=== PATIENT | male | born 1945 | race Caucasian/White ===

== ENCOUNTER → 2018-12-04 | Outpatient (CLI) | payer MEDICARE ==
--- NOTE | 2018-12-04 12:32 | REP ---
PARTIAL LUMBAR SPINE, THREE VIEWS: HISTORY: Back pain. There is no acute fracture. The lumbar intervertebral discs are decreased in height. Vacuum phenomenon is present at the L4-5 level. These findings are consistent with disc degeneration. Osteophytes are present throughout the lumbar spine. There is sclerosis of the L4-5 and L5-S1 facets. There are 5 mm of grade 1 spondylolisthesis of L5 on S1. IMPRESSION: Degenerative change as described above. Electronically Signed by Mingo Monroe MD 12/04/2018 12:51 P
== END ==
LOC: M ADAMS 11:24
PROVIDERS: ATTEND Family Medicine
DX: M43.17 Spondylolisthesis, lumbosacral region (principal); M51.86 Other intervertebral disc disorders, lumbar region; M51.87 Other intervertebral disc disorders, lumbosacral region; M25.78 Osteophyte, vertebrae; M54.5 Low back pain; E03.0 Congenital hypothyroidism with diffuse goiter; E66.9 Obesity, unspecified; Z68.32 Body mass index [BMI] 32.0-32.9, adult

== ENCOUNTER → 2018-12-04 | Outpatient (REF) | payer MEDICARE ==
[2018-12-04 15:14] LABS: BASO # 0.1 10^3/uL (0.0-0.2); BASO % 0.8 % (0.0-1.0); EOS # 0.1 10^3/uL (0.0-0.50); EOS % 0.8 % (0.0-3.0); HEMATOCRIT 37.1 % (42.0-52.0); HEMOGLOBIN 12.3 g/dl (13.5-17.5); LYMPH # 1.5 10^3/uL (1.5-4.5); LYMPH % 23.5 % (24.0-44.0); MEAN CORPUSCULAR HEMOGLOBIN 31.6 pg (27.0-33.0); MEAN CORPUSCULAR HGB CONC 33.2 g/dl (32.0-36.5); MEAN CORPUSCULAR VOLUME 95.4 fl (80.0-96.0); MONO # 0.9 10^3/uL (0.0-0.8); MONO % 13.5 % (0.0-5.0); NEUTROPHILS # 3.9 10^3/uL (1.8-7.7); NEUTROPHILS % 60.8 % (36.0-66.0); PLATELET COUNT, AUTOMATED 279 10^3/uL (150-450); RED BLOOD COUNT 3.89 10^6/uL (4.30-6.10); WHITE BLOOD COUNT 6.4 10^3/uL (4.0-10.0)
[2018-12-04 15:28] LABS: ALBUMIN 3.9 GM/DL (3.2-5.2); BILIRUBIN,TOTAL 0.5 MG/DL (0.2-1.0); CALCIUM LEVEL 8.5 MG/DL (8.8-10.2); CHOLESTEROL RISK RATIO 5.717 (<5); CREATININE FOR GFR 1.28 MG/DL (0.70-1.30); FREE T4 1.39 NG/DL (0.76-1.46); GLOMERULAR FILTRATION RATE 58.5 (>42); POTASSIUM SERUM 4.8 MEQ/L (3.5-5.1); THYROID STIMULATING HORMONE 1.28 uIU/ML (0.358-3.740); TOTAL PROTEIN 7.8 GM/DL (6.4-8.2)
== END ==
LOC: M SFHCADAM 11:21
PROVIDERS: ATTEND Family Medicine
DX: R03.0 Elevated blood-pressure reading, without diagnosis of hypertension (principal); E66.9 Obesity, unspecified; Z68.32 Body mass index [BMI] 32.0-32.9, adult

== ENCOUNTER → 2018-12-18 | Outpatient (CLI) | payer MEDICARE ==
--- NOTE | 2018-12-18 15:46 | REP ---
RIGHT KNEE, FIVE VIEWS: Five views of the right knee are performed. There is no acute fracture or dislocation. There is moderate medial joint space narrowing and mild lateral joint space narrowing with mild subchondral sclerosis. Moderate vascular calcifications are seen posteriorly. There is probably a small joint effusion. IMPRESSION: Moderate medial arthritic changes. Electronically Signed by Vern Krueger MD 12/18/2018 05:09 P
[2018-12-18 19:58] LABS: CHOLESTEROL RISK RATIO 6.552 (<5)
== END ==
LOC: M ADAMS 13:48
PROVIDERS: ATTEND Family Medicine
DX: M17.11 Unilateral primary osteoarthritis, right knee (principal); E78.2 Mixed hyperlipidemia; M25.661 Stiffness of right knee, not elsewhere classified
CPT/HCPCS: 73564; 80061; G0463

== ENCOUNTER → 2019-01-21 | Outpatient (CLI) | payer MEDICARE ==
[~2019-01-21] MED LIST: ISOVUE-370 76% 100ML VIAL (Q9967) As Ordered ONE
--- NOTE | 2019-01-21 15:25 | REP ---
CT Head without and with contrast HISTORY: Altered sensation CONTRAST: Isovue 370 75 ml COMPARISON: None Areas of decreased attenuation are present in the periventricular and subcortical white matter. This represents small-vessel ischemic disease. There is no intraparenchymal hemorrhage, acute infarct, mass or midline shift. There is no abnormal enhancement. The ventricular system and cortical sulci are dilated consistent with minimal volume loss. There is no extra cerebral collection. The visualized sinuses are clear. Impression: 1. Small vessel ischemic disease 2. Minimal volume loss. Electronically Signed by Mingo Monroe MD 01/21/2019 03:16 P
--- NOTE | 2019-01-21 15:57 | REP ---
Duplex extremity venous ultrasound: Right lower extremity. History: Edema of the right leg. Findings: The deep veins are anechoic and fully compressible from the groin to the popliteal fossa in the right lower extremity. Color flow imaging is homogeneous. Spectral Doppler interrogation demonstrates intact respiratory variation in flow and normal manual augmentation of flow. There is no evidence of deep vein thrombosis. There is a 5.1 x 2.8 x 3.3 cm right Mariscal's cyst. Impression: Negative right lower extremity duplex venous ultrasound. No evidence of deep vein thrombosis. 5.1 cm Mariscal's cyst right popliteal fossa. Electronically Signed by Fernie Alanis MD 01/21/2019 03:49 P
[2019-01-21 17:05] LABS: BLOOD UREA NITROGEN 20 MG/DL (7-18); CARBON DIOXIDE LEVEL 29 MEQ/L (21-32); CHLORIDE LEVEL 103 MEQ/L (98-107); CREATININE FOR GFR 1.19 MG/DL (0.70-1.30); GLOMERULAR FILTRATION RATE > 60.0 (>42); GLUCOSE, FASTING 93 MG/DL (70-100); POTASSIUM SERUM 4.5 MEQ/L (3.5-5.1); SODIUM LEVEL 137 MEQ/L (136-145)
== END ==
LOC: M RAD 14:34
PROVIDERS: ATTEND Family Medicine
DX: I67.9 Cerebrovascular disease, unspecified (principal); M71.21 Synovial cyst of popliteal space [Baker], right knee; R20.9 Unspecified disturbances of skin sensation; R60.0 Localized edema
CPT/HCPCS: 36415; 70470; 80048; 93005; 93971; G0463; Q9967

== ENCOUNTER → 2019-01-28 | Outpatient (CLI) | payer MEDICARE ==
--- NOTE | 2019-01-28 14:15 | REP ---
CAROTID ULTRASOUND: Real-time ultrasound evaluation and duplex Doppler interrogation of the extracranial carotid vasculature is performed. There is mild to moderate plaquing and narrowing in both carotid bulbs extending into the internal and external carotid arteries. Luminal narrowing is less than 50%. There is no evidence of hemodynamically significant stenosis of either internal carotid artery. Normal flow velocities are seen. The vertebral arteries demonstrate normal direction of flow. RIGHT LEFT Peak systolic velocity ICA 63.6 cm/s 95.1 cm/s End diastolic velocity ICA 17.4 cm/s 28.6 cm/s Peak systolic velocity CCA 103.30 cm/s 147.2 cm/s Peak systolic velocity ECA 182.6 cm/s 165.4 cm/s ICA/CCA ratio 0.62 0.65 IMPRESSION: Bilateral luminal narrowing of the internal carotid arteries less than 50%. No evidence of hemodynamically significant stenosis. Electronically Signed by Vern Krueger MD 01/28/2019 02:05 P
== END ==
LOC: M RAD 12:28
PROVIDERS: ATTEND Family Medicine
DX: R20.9 Unspecified disturbances of skin sensation (principal); I65.23 Occlusion and stenosis of bilateral carotid arteries

== ENCOUNTER → 2019-03-20 | Outpatient (CLI) | payer MEDICARE ==
[~2019-03-20] MED LIST changes: +AMLO5TAB6 PO; +BACL10TA2 PO; -ISOVUE-370 76% 100ML VIAL (Q9967) As Ordered ONE; +NAPR-837 PO; +PEG1POW PO
--- NOTE | 2019-03-22 10:06 | REP ---
MRI lumbar spine without contrast: History: Gait abnormality. No comparison lumbar spine MRI study. Comparison lumbar spine radiographs are from December 04, 2018. Technique: Sagittal and axial T1 and T2-weighted scans are acquired in the usual fashion with and without fat saturation. Sequences include spin echo, turbo spin-echo, and STIR imaging sequences. MRI findings: Lumbar vertebral body heights are preserved. A stable 5 mm L5-S1 spondylolisthesis is seen. No definite spondylolysis is seen. At L5-S1, axial and sagittal images demonstrate diffuse posterior disc bulging. There is moderate osteoarthritic facet hypertrophy bilaterally left more so than right. There is mild left-sided neural foraminal narrowing due to facet hypertrophy and the spondylolisthesis. At L4-5, there is moderate central canal stenosis due to ligamentum flavum and facet hypertrophy and developmentally short pedicles. There is a small central focal disc protrusion. There is bilateral neural foraminal narrowing left more advanced than right due to facet hypertrophy and disc bulging and spur formation. At L3-4, there is moderate diffuse disc bulging. Moderate central canal stenosis is noted at this level as well due to ligamentum flavum and facet hypertrophy in addition to the disc bulging. The thecal sac has a 9 mm midline AP dimension at the 3-4 level. There is bilateral neural foraminal encroachment from facet hypertrophy and discogenic spurring. At L2-3, there is mild central canal stenosis. Diffuse disc bulging is present. There is ligamentum flavum hypertrophy on the right and to a lesser extent on the left. There is right-sided mild foraminal narrowing at L2-3. At L1-2 there is degenerative disc narrowing as well with minimal diffuse disc bulging. No central canal stenosis is seen. There is mild narrowing of the right neural foramen due to foraminal disc bulging. At T12-L1, there is central disc bulging. No other finding. No extra spinal abnormality is appreciated. Normal caliber aorta. Impression: Advanced degenerative spondylosis change. Multiple levels of neural foraminal encroachment. There is moderate central canal stenosis at the L4-5 and L3-4. There is a degenerative grade 1 5 mm L5-S1 spondylolisthesis. Electronically Signed by Fernie Alanis MD 03/22/2019 11:10 A
== END ==
LOC: M RAD 13:26
PROVIDERS: ATTEND Family Medicine
DX: M48.061 Spinal stenosis, lumbar region without neurogenic claudication (principal); M43.17 Spondylolisthesis, lumbosacral region

== ENCOUNTER 2019-04-12 14:14 | Emergency (ER) | payer MEDICARE ==
[~2019-04-12] VITALS: Ht 175.3 cm; Wt 109.5 kg
[2019-04-12] MEDS ORDERED: PEG1POW PO (16:48)
[2019-04-12] MEDS ORDERED: AMLO5TAB6 PO (16:48)
[2019-04-12] MEDS ORDERED: PERCOCET 5MG/325MG TAB PO ONE (17:30)
[2019-04-12] MEDS ORDERED: BACLOFEN 10 MG TAB PO ONE (17:30)
--- NOTE | 2019-04-12 18:39 | REPVR ---
EXAM: CT Lumbar Spine Without Contrast EXAM DATE/TIME: 04/12/2019 5:20 PM CLINICAL HISTORY: 74 years old, male; Injury or trauma; Fall; Initial encounter; Blunt trauma (contusions or hematomas); Additional info: Fell TECHNIQUE: Imaging protocol: Computed tomography images of the lumbar spine without contrast. Coronal and sagittal reformatted images were created and reviewed. Radiation optimization: All CT scans at this facility use at least one of these dose optimization techniques: automated exposure control; mA and/or kV adjustment per patient size (includes targeted exams where dose is matched to clinical indication); or iterative reconstruction. COMPARISON: MRI-Spine, L.S. without con 03/20/2019 2:51 PM FINDINGS: Vertebrae: Ambiguous lumbosacral anatomy is present with 6 non rib-bearing lumbar type vertebral bodies. For the purposes of this examination, S1 is considered to be lumbar-like. Degenerative disc disease and facet arthrosis is present throughout the lumbar spine and lumbosacral junction. No acute fracture is identified. L1-L2: No disc herniation. No spinal stenosis. No neural foraminal narrowing. L2-L3: Mild spinal stenosis. L3-L4: Moderate spinal stenosis. L4-L5: Severe spinal stenosis. L5-S1: There is minimal retrolisthesis of L5. S1-S2: There is a chronic pars defect on the right at S1. There is mild anterolisthesis of S1. Kidneys and ureters: Absent left kidney. Multiple fluid density lesions within the right kidney. These are incompletely visualized, but likely represents cysts. Consider followup evaluation with renal ultrasound or contrast-enhanced CT scan as clinically indicated. Vasculature: Moderate severe atherosclerosis of the abdominal aorta and branch vessels. Soft tissues: Unremarkable. IMPRESSION: 1. No acute fracture. 2. Degenerative spondylosis of the lumbar spine and lumbosacral junction. 3. Severe spinal stenosis at L4-L5. 4. Fluid density lesions within the right kidney, incompletely visualized. Although these lesions are therefore indeterminate, they likely represent cysts and could be further characterized with renal ultrasound or contrast-enhanced CT. Electronically signed by: Enrike Nixon On 04/12/2019 18:39:29 PM
[2019-04-12] MEDS ORDERED: NAPR-837 PO (19:19)
[2019-04-12] MEDS ORDERED: BACL10TA2 PO (19:19)
[2019-04-12 19:29] VITALS: BP 145/65
--- NOTE | 2019-04-12 21:45 | ED PDOC ---
Post-Departure Follow-Up dr jimenez faxed formal report of ct ls spine for fu Ezequiel De Santiago MD Apr 12, 2019 21:45
== END 2019-04-12 19:32 | disposition home or self-care (01) ==
LOC: M ED 14:14
DX: M48.061 Spinal stenosis, lumbar region without neurogenic claudication (principal); M47.816 Spondylosis without myelopathy or radiculopathy, lumbar region; M47.817 Spondylosis without myelopathy or radiculopathy, lumbosacral region; M54.31 Sciatica, right side; I10 Essential (primary) hypertension; E66.9 Obesity, unspecified; G89.29 Other chronic pain; M54.9 Dorsalgia, unspecified; Z72.0 Tobacco use; Z79.899 Other long term (current) drug therapy

== ENCOUNTER → 2019-04-27 | Outpatient (REF) | payer MEDICARE ==
[2019-04-27 14:08] LABS: BASO % 0.7 % (0.0-1.0); DRVV SCREEN 36.2 SEC; EOS % 0.7 % (0.0-3.0); HEMOGLOBIN 12.3 g/dl (13.5-17.5); LYMPH # 0.9 10^3/uL (1.5-4.5); LYMPH % 17.1 % (24.0-44.0); MEAN CORPUSCULAR HEMOGLOBIN 32.5 pg (27.0-33.0); MEAN CORPUSCULAR HGB CONC 33.2 g/dl (32.0-36.5); MEAN CORPUSCULAR VOLUME 97.6 fl (80.0-96.0); MONO # 0.5 10^3/uL (0.0-0.8); NEUTROPHILS # 3.9 10^3/uL (1.8-7.7); NEUTROPHILS % 71.9 % (36.0-66.0); PLATELET COUNT, AUTOMATED 224 10^3/uL (150-450); PTT LUPUS TYPE ANTICOAG SCREEN 0.9 (0-1.2); RED BLOOD COUNT 3.79 10^6/uL (4.30-6.10); WHITE BLOOD COUNT 5.5 10^3/uL (4.0-10.0)
[2019-04-27 14:22] LABS: ALBUMIN 3.7 GM/DL (3.2-5.2); ALT/SGPT 28 U/L (12-78); BILIRUBIN,TOTAL 0.5 MG/DL (0.2-1.0); BLOOD UREA NITROGEN 20 MG/DL (7-18); CALCIUM LEVEL 8.7 MG/DL (8.8-10.2); CARBON DIOXIDE LEVEL 24 MEQ/L (21-32); CHLORIDE LEVEL 106 MEQ/L (98-107); CREATININE FOR GFR 1.02 MG/DL (0.70-1.30); GLOMERULAR FILTRATION RATE > 60.0 (>42); GLUCOSE, FASTING 84 MG/DL (70-100); POTASSIUM SERUM 4.3 MEQ/L (3.5-5.1); RHEUMATOID FACTOR QUANT 53.2 IU/ML (<15.0); SODIUM LEVEL 138 MEQ/L (136-145); TOTAL PROTEIN 7.3 GM/DL (6.4-8.2)
[2019-04-27 14:24] LABS: HEMOGLOBIN A1c 5.8 %
[2019-04-27 14:37] LABS: ERYTHROCYTE SEDIMENTATION RATE 63 mm/hr (0-20)
[2019-04-27 14:52] LABS: FOLATE 17.2 NG/ML; TOTAL 25(OH) VITAMIN D 31.6 NG/ML (30.0-100.0); VITAMIN B12 LEVEL 217 PG/ML
[2019-04-29 11:27] LABS: ALBUMIN 3.96 GM/DL (3.29-5.55); ALBUMIN % 54.3 % (55.8-66.1); ALPHA-1-GLOBULIN % 5.3 % (2.9-4.9); ALPHA-1-GLOBULINS 0.39 GM/DL (0.17-0.41); ALPHA-2-GLOBULINS 0.86 GM/DL (0.42-0.99); ALPHA-2-GLOBULINS % 11.8 % (7.1-11.8); BETA-1-GLOBULINS 0.41 GM/DL (0.28-0.60); BETA-1-GLOBULINS % 5.6 % (4.7-7.2); BETA-2-GLOBULINS 0.43 GM/DL (0.19-0.55); BETA-2-GLOBULINS % 5.9 % (3.2-6.5); GAMMA GLOBULIN % 17.1 % (11.1-18.8); GAMMA GLOBULINS 1.25 GM/DL (0.65-1.58)
[2019-05-02 08:27] LABS: ANCA-ATYPICAL <1:20 titer (Neg:<1:20); ANTI DS-DNA AB <1:10 titer (.); ANTINUCLEAR ANTIBODIES DIRECT Negative (Negative); CERULOPLASMIN 31.8 mg/dL (16.0-31.0); COPPER PLASMA 133 ug/dL (72-166); CYTOPLASMIC NEUTROP AB ANCA-C <1:20 titer (Neg:<1:20); LEAD BLOOD ADULT 2 ug/dL (0-4); Lyme Disease IgG Ab 18 kDa Ban Present (.); Lyme Disease IgG Ab 23 kDa Ban Present (.); Lyme Disease IgG Ab 28 kDa Ban Absent (.); Lyme Disease IgG Ab 30 kDa Ban Absent (.); Lyme Disease IgG Ab 39 kDa Ban Absent (.); Lyme Disease IgG Ab 41 kDa Ban Absent (.); Lyme Disease IgG Ab 45 kDa Ban Absent (.); Lyme Disease IgG Ab 58 kDa Ban Absent (.); Lyme Disease IgG Ab 66 kDa Ban Absent (.); Lyme Disease IgG Ab 93 kDa Ban Absent (.); Lyme Disease IgG West Blot Int Negative (.); Lyme Disease IgG/IgM Antibodie 0.93 ISR (0.00-0.90); Lyme Disease IgM Ab 23 kDa Ban Absent (.); Lyme Disease IgM Ab 39 kDa Ban Absent (.); Lyme Disease IgM Ab 41 kDa Ban Absent (.); Lyme Disease IgM Ab Quantitati 0.91 index (0.00-0.79); Lyme Disease IgM West Blot Int Negative (.); MERCURY LEVEL None Detected ug/L (0.0-14.9); PERINUCLEAR AB ANCA-P <1:20 titer (Neg:<1:20); SJOGREN'S ANTI SS-A <0.2 AI (0.0-0.9); SJOGREN'S ANTI SS-B <0.2 AI (0.0-0.9); VITAMIN B1 LEVEL WHOLE BLOOD 91.8 nmol/L (66.5-200.0); VITAMIN B6,PYRIDOXAL PHOSPHATE 5.3 ug/L (5.3-46.7); VITAMIN E(ALPHA TOCOPHEROL) 14.1 mg/L (9.0-29.0); VITAMIN E(GAMMA TOCOPHEROL) 1.7 mg/L (0.5-4.9)
== END ==
LOC: M LABNEURO 10:32
PROVIDERS: ATTEND Psychiatry & Neurology Neurology
DX: G62.9 Polyneuropathy, unspecified (principal); Z79.899 Other long term (current) drug therapy

== ENCOUNTER → 2019-11-08 | Outpatient (REF) | payer MEDICARE ==
[2019-11-08 14:06] LABS: BASO # 0.1 10^3/uL (0.0-0.2); EOS # 0.1 10^3/uL (0.0-0.5); HEMATOCRIT 38.4 % (42.0-52.0); HEMOGLOBIN 12.6 g/dl (13.5-17.5); LYMPH # 1.6 10^3/uL (1.5-5.0); MEAN CORPUSCULAR HEMOGLOBIN 31.8 pg (27.0-33.0); MEAN CORPUSCULAR HGB CONC 32.8 g/dl (32.0-36.5); MONO # 0.6 10^3/uL (0.0-0.8); MONO % 12.1 % (0.0-5.0); NEUTROPHILS # 2.7 10^3/uL (1.5-8.5); NEUTROPHILS % 54.3 % (36.0-66.0); PLATELET COUNT, AUTOMATED 217 10^3/uL (150-450); RED BLOOD COUNT 3.96 10^6/uL (4.30-6.10)
[2019-11-08 14:16] LABS: BILIRUBIN,TOTAL 0.6 MG/DL (0.2-1.0); CALCIUM LEVEL 9.2 MG/DL (8.8-10.2); CHOLESTEROL RISK RATIO 6.1 (<5); CREATININE FOR GFR 1.3 MG/DL (0.70-1.30); GLOMERULAR FILTRATION RATE 57.3 (>42); POTASSIUM SERUM 4.7 MEQ/L (3.5-5.1); TOTAL PROTEIN 7.7 GM/DL (6.4-8.2)
== END ==
LOC: M SFHCADAM 09:40
PROVIDERS: ATTEND Family Medicine
DX: I63.9 Cerebral infarction, unspecified (principal); I10 Essential (primary) hypertension

== ENCOUNTER → 2019-11-18 | Outpatient (CLI) | payer MEDICARE ==
--- NOTE | 2019-11-18 13:01 | REP ---
PA and lateral chest: Comparison is 08/18/2006. There are multiple old left rib fractures, unchanged. There is chronic effacement of the left costophrenic angle, likely pleural adhesion. Lung guzman are otherwise clear. The cardiac size is normal. The lydia, mediastinum, and skeletal structures are otherwise unremarkable and unchanged. Impression: There are old post-traumatic changes in the left hemithorax. Otherwise, negative PA and lateral chest. Electronically Signed by Vern Joseph MD 11/18/2019 12:52 P
== END ==
LOC: M ADAMS 11:47
PROVIDERS: ATTEND Family Medicine
DX: R05 Cough (principal)
CPT/HCPCS: 71046; G0463

== ENCOUNTER → 2020-01-13 | Outpatient (REF) | payer MEDICARE ==
[2020-01-13 18:00] LABS: ALBUMIN 3.9 GM/DL (3.2-5.2); BILIRUBIN,TOTAL 0.6 MG/DL (0.2-1.0); CALCIUM LEVEL 9.4 MG/DL (8.8-10.2); CHOLESTEROL RISK RATIO 3.69 (<5); CREATININE FOR GFR 1.26 MG/DL (0.70-1.30); GLOMERULAR FILTRATION RATE 59.4 (>42); POTASSIUM SERUM 4.3 MEQ/L (3.5-5.1); TOTAL PROTEIN 7.8 GM/DL (6.4-8.2)
== END ==
LOC: M SFHCADAM 11:50
PROVIDERS: ATTEND Family Medicine
DX: R60.9 Edema, unspecified (principal); E78.00 Pure hypercholesterolemia, unspecified
CPT/HCPCS: 80053; 80061; G0463

== ENCOUNTER → 2020-01-28 | Outpatient (CLI) | payer MEDICARE | LOC: M SLEEP HO 12:29 | PROVIDERS: ATTEND Internal Medicine Cardiovascular Disease | DX: R06.83 Snoring (principal) ==

== ENCOUNTER → 2020-05-10 | Outpatient (CLI) | payer MEDICARE ==
[~2020-05-10] MED LIST changes: +AMLO1TAB24 PO; -AMLO5TAB6 PO; +ASPI81TA26 PO; +ATOR1TAB21 PO; +CARV6.25 PO; +FURO20TA2 PO; +SPIR-10 PO; +VENTAER INH
--- NOTE | 2020-06-06 13:41 | REP ---
CHEST X-RAY CLINICAL: Dyspnea. COMPARISON: 11/18/2019, 08/18/2006. FINDINGS: Mediastinum and cardiac silhouette are stable. Chronic posttraumatic changes involving the left hemithorax remains stable. The right hemithorax is well aerated and clear. No obvious acute consolidation, effusion, or pneumothorax. Old healed left rib fractures noted. IMPRESSION: Chronic stable changes. No acute cardiopulmonary process. MTDD
== END ==
LOC: M LAB 13:13
PROVIDERS: ATTEND Nurse Practitioner Family
DX: R06.00 Dyspnea, unspecified (principal)

== ENCOUNTER → 2020-06-05 | Outpatient (REF) | payer MEDICARE ==
[2020-06-05 17:32] LABS: BASO % 0.4 % (0.0-1.0); EOS # 0.1 10^3/uL (0.0-0.5); EOS % 2.1 % (0.0-3.0); HEMATOCRIT 36.3 % (42.0-52.0); HEMOGLOBIN 11.7 g/dl (13.5-17.5); LYMPH # 1.4 10^3/uL (1.5-5.0); LYMPH % 29.2 % (24.0-44.0); MEAN CORPUSCULAR HEMOGLOBIN 32.7 pg (27.0-33.0); MEAN CORPUSCULAR HGB CONC 32.2 g/dl (32.0-36.5); MEAN CORPUSCULAR VOLUME 101.4 fl (80.0-96.0); MONO # 0.5 10^3/uL (0.0-0.8); MONO % 10.5 % (0.0-5.0); NEUTROPHILS # 2.8 10^3/uL (1.5-8.5); NEUTROPHILS % 56.8 % (36.0-66.0); PLATELET COUNT, AUTOMATED 196 10^3/uL (150-450); RED BLOOD COUNT 3.58 10^6/uL (4.30-6.10); WHITE BLOOD COUNT 4.9 10^3/uL (4.0-10.0)
[2020-06-05 17:41] LABS: ALBUMIN 3.8 GM/DL (3.2-5.2); BILIRUBIN,TOTAL 0.9 MG/DL (0.2-1.0); CALCIUM LEVEL 9.3 MG/DL (8.8-10.2); CREATININE FOR GFR 1.53 MG/DL (0.70-1.30); GLOMERULAR FILTRATION RATE 47.3 (>42); PERCENT SATURATION 34.9 % (19.7-50.0); THYROID STIMULATING HORMONE 1.25 uIU/ML (0.358-3.740); TOTAL PROTEIN 7.6 GM/DL (6.4-8.2)
[2020-06-05 17:43] LABS: FOLATE 12.9 NG/ML
== END ==
LOC: M SFHCADAM 16:31
PROVIDERS: ATTEND Family Medicine
DX: D64.9 Anemia, unspecified (principal)

== ENCOUNTER → 2020-06-06 | Outpatient (CLI) | payer MEDICARE ==
[~2020-06-06] MED LIST changes: +METHACHOLINE KIT (J7674) INH ONE
--- NOTE | 2020-06-06 15:36 | PFTRPT ---
Height: 69.00 Inches Weight: 255.00 Lbs BSA: 2.29 Diagnosis: R05 DATE: 06/06/2020 ORDERED BY: AMANDA Limon. QUALITY: Study of excellent technical quality. PROCEDURE: Under protocol, methacholine was administered. At a dose of 0.025 mg, or 0.125 CDUs, a 34% decline of the FEV1 was noted. Flow rates did return to baseline post-bronchodilator administration. IMPRESSION: Positive methacholine challenge study. MTDD
== END ==
LOC: M CARPUL 05-25 14:33
PROVIDERS: ATTEND Nurse Practitioner Family
DX: R05 Cough (principal)
CPT/HCPCS: 94070; 95070; J7674

== ENCOUNTER → 2020-06-22 | Outpatient (CLI) | payer MEDICARE ==
[~2020-06-22] MED LIST changes: -METHACHOLINE KIT (J7674) INH ONE
--- NOTE | 2020-06-23 08:09 | REP ---
INDICATION: DYSPNEA UNSPECIFIED COMPARISON: 07/22/2006 TECHNIQUE: Axial noncontrast images from the thoracic inlet to the upper abdomen with coronal and sagittal reformations. 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 No evidence for acute consolidation, nodule or mass lesion. No effusion. No pneumothorax. Very minimal dependent changes at the posterior right base noted. Tracheobronchial tree is patent. Mediastinum demonstrates atherosclerotic changes to the thoracic aorta and coronary arteries without aneurysm or cardiomegaly. No pericardial effusion. No axillary, hilar, or mediastinal adenopathy. Limited upper abdomen demonstrates stable bilateral adrenal glands along with incompletely evaluated right renal cysts measuring up to 8 cm diameter. Possible left nephrectomy cannot be excluded. IMPRESSION: 1. Chronic and postsurgical changes primarily involving the left hemithorax as described above. 2. No acute mediastinal or pleuroparenchymal process appreciated. 3. Limited upper abdomen suggesting increasing right renal cysts up to 8 cm and possible prior left nephrectomy. <Electronically signed by Daniel Kruger > 06/23/20 [id number]
== END ==
LOC: M RAD 16:55
PROVIDERS: ATTEND Nurse Practitioner Family
DX: R06.00 Dyspnea, unspecified (principal); N28.1 Cyst of kidney, acquired

== ENCOUNTER → 2020-07-12 | Outpatient (REF) | payer MEDICARE | LOC: M SFHCADAM 16:43 | PROVIDERS: ATTEND Family Medicine | DX: R05 Cough (principal); Z20.828 Contact with and (suspected) exposure to other viral communicable diseases | CPT/HCPCS: G0463; U0003 ==

== ENCOUNTER → 2020-08-18 | Outpatient (CLI) | payer MEDICARE ==
[~2020-08-18] MED LIST changes: +ADVA115A INH
== END ==
LOC: M LABSMTC 10:25
PROVIDERS: ATTEND Anesthesiology
DX: Z01.812 Encounter for preprocedural laboratory examination (principal); Z20.828 Contact with and (suspected) exposure to other viral communicable diseases

== ENCOUNTER 2020-08-23 06:38 | Day surgery (SDC) | payer MEDICARE ==
[~2020-08-23] VITALS: Ht 175.3 cm; Wt 115.2 kg
[2020-08-23] MEDS ORDERED: LIDOCAINE 2% 100MG/5ML SDV (FOR ANES.) As Ordered ONE (07:04)
[2020-08-23] MEDS ORDERED: propofoL 200 MG/20 ML VIAL As Ordered ONE ×2 (07:04→07:13)
[2020-08-23] MEDS: NS 1,000 ML IV ONE (07:15)
[2020-08-23] MEDS ORDERED: fentaNYL 100 MCG/2 ML INJECTION (J3010) As Ordered ONE (07:29)
--- NOTE | 2020-08-23 08:37 | ROOR ---
Patient Name: Flex Talavera Procedure Date: 08/23/2020 7:38 AM Date of : 1945 Age: 75 Room: [facility] Gender: Male Note Status: Finalized Procedure: Upper GI endoscopy Indications: Iron deficiency anemia, Melena Providers: Tyrell Cesar MD Referring MD: Eduarda GOLDBERG DO Requestyaron Provider: Medicines: Monitored Anesthesia Care Complications: No immediate complications. Procedure: Pre-Anesthesia Assessment: - Prior to the procedure, a History and Physical was performed, and patient medications and allergies were reviewed. The patient is competent. The risks and benefits of the procedure and the sedation options and risks were discussed with the patient. All questions were answered and informed consent was obtained. Patient identification and proposed procedure were verified by the physician, the nurse and the anesthesiologist in the endoscopy suite. Mental Status Examination: alert and oriented. Airway Examination: normal oropharyngeal airway and neck mobility. Respiratory Examination: clear to auscultation. CV Examination: normal. Prophylactic Antibiotics: The patient does not require prophylactic antibiotics. Prior Anticoagulants: The patient has taken no previous anticoagulant or antiplatelet agents except for aspirin. ASA Grade Assessment: III - A patient with severe systemic disease. After reviewing the risks and benefits, the patient was deemed in satisfactory condition to undergo the procedure. The anesthesia plan was to use monitored anesthesia care (MAC). Immediately prior to administration of medications, the patient was re-assessed for adequacy to receive sedatives. The heart rate, respiratory rate, oxygen saturations, blood pressure, adequacy of pulmonary ventilation, and response to care were monitored throughout the procedure. The physical status of the patient was re-assessed after the procedure. The Endoscope was introduced through the mouth, and advanced to the second part of duodenum. The upper GI endoscopy was accomplished without difficulty. The patient tolerated the procedure well. Findings: The examined esophagus was normal. The Z-line was regular and was found 35 cm from the incisors. Hematin (altered blood/oduxis-ogbgri-zjad material) was found in the gastric body. Localized mild inflammation characterized by erythema was found on the lesser curvature of the stomach. One non-bleeding superficial gastric ulcer with no stigmata of bleeding was found at the pylorus. The lesion was 4 mm in largest dimension. Biopsies were taken with a cold forceps for Helicobacter pylori testing. Estimated blood loss was minimal. Patchy mildly erythematous mucosa without active bleeding and with no stigmata of bleeding was found in the first portion of the duodenum. This was biopsied with a cold forceps for histology. A single 4 mm sessile polyp with no bleeding and no stigmata of recent bleeding was found at the gastroesophageal junction. This was biopsied with a cold forceps for histology. Impression: - Normal esophagus. - Z-line regular, 35 cm from the incisors. - Hematin (altered blood/ngoeko-diakgb-pdlt material) in the gastric body. - Chronic gastritis. - Non-bleeding gastric ulcer with no stigmata of bleeding. Biopsied. - Erythematous duodenopathy. Biopsied. Recommendation: - Await pathology results. - Use Protonix (pantoprazole) 40 mg PO daily for 6 weeks. Procedure Code(s): --- Professional --- 93084, Esophagogastroduodenoscopy, flexible, transoral; with biopsy, single or multiple Diagnosis Code(s): --- Professional --- K92.2, Gastrointestinal hemorrhage, unspecified K29.50, Unspecified chronic gastritis without bleeding K25.9, Gastric ulcer, unspecified as acute or chronic, without hemorrhage or perforation K31.89, Other diseases of stomach and duodenum D50.9, Iron deficiency anemia, unspecified K92.1, Melena (includes Hematochezia) CPT copyright 2019 [employer]. All rights reserved. The codes documented in this report are preliminary and upon sand mill operator review may be revised to meet current compliance requirements. Tyrell Cesar MD Tyrell Cesar MD 08/23/2020 8:36:56 AM Electronically signed by Tyrell Cesar MD Number of Addenda: 0 Note Initiated On: 08/23/2020 7:38 AM Estimated Blood Loss: Estimated blood loss was minimal.
--- NOTE | 2020-08-23 08:42 | ROOR ---
Patient Name: Flex Talavera Procedure Date: 08/23/2020 7:40 AM Date of : 1945 Age: 75 Room: [facility] Gender: Male Note Status: Finalized Procedure: Colonoscopy Indications: Screening for colon cancer: Family history of colorectal cancer in distant relative(s) Providers: Tyrell Cesar MD Referring MD: Eduarda GOLDBERG DO Requesting Provider: Medicines: Monitored Anesthesia Care Complications: No immediate complications. Procedure: Pre-Anesthesia Assessment: - Prior to the procedure, a History and Physical was performed, and patient medications and allergies were reviewed. The patient is competent. The risks and benefits of the procedure and the sedation options and risks were discussed with the patient. All questions were answered and informed consent was obtained. Patient identification and proposed procedure were verified by the physician, the nurse and the anesthesiologist in the procedure room. Mental Status Examination: alert and oriented. Airway Examination: normal oropharyngeal airway and neck mobility. Respiratory Examination: clear to auscultation. CV Examination: normal. Prophylactic Antibiotics: The patient does not require prophylactic antibiotics. Prior Anticoagulants: The patient has taken no previous anticoagulant or antiplatelet agents. ASA Grade Assessment: III - A patient with severe systemic disease. After reviewing the risks and benefits, the patient was deemed in satisfactory condition to undergo the procedure. The anesthesia plan was to use monitored anesthesia care (MAC). Immediately prior to administration of medications, the patient was re-assessed for adequacy to receive sedatives. The heart rate, respiratory rate, oxygen saturations, blood pressure, adequacy of pulmonary ventilation, and response to care were monitored throughout the procedure. The physical status of the patient was re-assessed after the procedure. The Colonoscope was introduced through the anus and advanced to the cecum, identified by appendiceal orifice and ileocecal valve. The colonoscopy was somewhat difficult due to the patient's body habitus. Successful completion of the procedure was aided by applying abdominal pressure. The patient tolerated the procedure well. The quality of the bowel preparation was adequate to identify polyps. Findings: The perianal and digital rectal examinations were normal. Two sessile polyps were found in the transverse colon. The polyps were 2 to 5 mm in size. These polyps were removed with a hot snare. Resection and retrieval were complete. Estimated blood loss was minimal. Three sessile polyps were found in the sigmoid colon. The polyps were 2 to 10 mm in size. These polyps were removed with a hot snare. Resection and retrieval were complete. Estimated blood loss was minimal. Five semi-pedunculated polyps were found in the recto-sigmoid colon. The polyps were 1 to 20 mm in size. These polyps were removed with a hot snare. Resection and retrieval were complete. Estimated blood loss was minimal. Impression: - Two 2 to 5 mm polyps in the transverse colon, removed with a hot snare. Resected and retrieved. - Three 2 to 10 mm polyps in the sigmoid colon, removed with a hot snare. Resected and retrieved. - Five 1 to 20 mm polyps at the recto-sigmoid colon, removed with a hot snare. Resected and retrieved. Recommendation: - Repeat colonoscopy in 6 months for surveillance of multiple polyps. - Await pathology results. Procedure Code(s): --- Professional --- 69283, Colonoscopy, flexible; with removal of tumor(s), polyp(s), or other lesion(s) by snare technique Diagnosis Code(s): --- Professional --- Z12.11, Encounter for screening for malignant neoplasm of colon Z80.0, Family history of malignant neoplasm of digestive organs K63.5, Polyp of colon CPT copyright 2019 [employer]. All rights reserved. The codes documented in this report are preliminary and upon medical coder review may be revised to meet current compliance requirements. Tyrell Cesar MD Tyrell Cesar MD 08/23/2020 8:41:57 AM Electronically signed by Tyrell Cesar MD Number of Addenda: 0 Note Initiated On: 08/23/2020 7:40 AM Estimated Blood Loss: Estimated blood loss was minimal.
[2020-08-23 08:50] VITALS: BP 138/61
== END 2020-08-23 09:03 | disposition home or self-care (01) ==
LOC: M OPP 06:38
PROVIDERS: ATTEND Surgery
DX: Z12.11 Encounter for screening for malignant neoplasm of colon (principal); Z80.0 Family history of malignant neoplasm of digestive organs; D50.9 Iron deficiency anemia, unspecified; K92.1 Melena; K31.89 Other diseases of stomach and duodenum; K25.9 Gastric ulcer, unspecified as acute or chronic, without hemorrhage or perforation; K29.50 Unspecified chronic gastritis without bleeding; K92.2 Gastrointestinal hemorrhage, unspecified; I10 Essential (primary) hypertension; E78.5 Hyperlipidemia, unspecified; M19.90 Unspecified osteoarthritis, unspecified site; J45.909 Unspecified asthma, uncomplicated; G47.30 Sleep apnea, unspecified; F17.210 Nicotine dependence, cigarettes, uncomplicated; M48.00 Spinal stenosis, site unspecified; Z79.82 Long term (current) use of aspirin; Z79.899 Other long term (current) drug therapy
CPT/HCPCS: 43239; 45385; 88305; J3010

== ENCOUNTER → 2020-10-13 | Outpatient (CLI) | payer MEDICARE ==
[~2020-10-13] MED LIST changes: +IBUP200T45 PO; +PANT40TA29 PO
== END ==
LOC: M LABSMTC 10:01
PROVIDERS: ATTEND Anesthesiology
DX: Z01.812 Encounter for preprocedural laboratory examination (principal); Z20.822 Contact with and (suspected) exposure to COVID-19

== ENCOUNTER 2020-10-18 06:35 | Day surgery (SDC) | payer MEDICARE ==
[~2020-10-18] VITALS: Ht 175.3 cm; Wt 113.9 kg
--- OUTSIDE RECORDS SUMMARY | 2020-10-18 06:43 | CCD | Continuity of Care Document ---
Author Author Flex CESAR MD Organization Unknown Address [address] [place] [id number] Phone [phone] Care Team Providers Care Clay Hoister Name Role Phone Eduarda Cross D.O. AUTM AUTM Unavailable Jc Rivera M.D. AUTM [phone] Problems Active Problems Provider Date Essential hypertension Gabby Blum, N.P. Onset: 07/21/2020 Social History Type Date Description Comments Sex Unknown Cigarette Use Pack Years - 30 Tobacco Use Start: 09/08/62 Patient is a current smoker, smo kes every day 1 ppd- currently 1/2 ppd Smoking Status Reviewed: 08/28/20 Patient is a current smoker, smokes every day 1 ppd- currently 1/2 ppd Allergies, Adverse Reactions, Alerts Description No Known Drug Allergies Medications Active Medications SIG Qnty Indications Ordering Provide r Date Pantoprazole Sodium 40mg Tablets D R 1 by mouth every day 90tabs Tyrell Cesar MD 0 Advair HFA 115-21mcg/Act Aerosol 2 puff twice a day 12gm R91.8 Gabby Blum, N.P. 07/24/2020 [address]ir[address] one tab by mouth once a day Unknown Spironolactone 25mg Tablets 1 tab by mouth every day Unknown Furosemide 20mg Tablets 1 tab by mouth every day Unknown Atorvastatin Calcium 20mg Tablets 1 tab by mouth every day Unknown Ventolin HFA 108(90Base) mcg/Act A erosol 2 puffs qid/prn Unknown Carvedilol 6.25mg Tablets 1 tab by mouth twice daily Unknown History Medications Suprep Bowel Prep Kit 17.5-3.13-1.6GM/177ML Solution take per doctor's bowel prep instructions. 354ml Chance Elliott NP 08/16/2020 - 07/29/2020 Immunizations Description No Information Available Vital Signs Date Vital Result Comment 09/28/2020 9:51am BP Systolic 130 mmHg BP Diastolic 80 mmHg Height 69 inches 5'9" Weight 260.00 lb BMI (Body Mass Index) 38.4 kg/m2 [place] Body Weight 160 lb Weight 117.936 kg BSA (Body Surface Area) 2.31 m2 08/28/2020 1:39pm BP Systolic 152 mmHg BP Diastolic 85 mmHg Heart Rate 74 /min O2 % BldC Oximetry 97 % Body Temperature 97.5 F Height 69 inches 5'9" Weight 254.00 lb BMI (Body Mass Index) 37.5 kg/m2 [place] Body Weight 160 lb Weight 115.214 kg BSA (Body Surface Area) 2.29 m2 Results Test Acquired Date Facility Test Result H/L Range Note Laboratory test finding 08/23/2020 [facility] [address] [place] [address] [phone] Pathology Request For Service (SEE NOTE) 1 1 FINAL DIAGNOSIS F - Rectosigmoid polyp, polypectomy: Adenocarcinoma, well differentiated, 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 The carcinoma invades the submucosa. The resection margin is free, approximately 2mm away from the carcinoma. Fragments of hyperplastic polyp are also noted. A consultation was obtained from [facility], please see complete report [id number]. pT1 A - Duodenal biopsy: Small intestinal mucosa with overall preserved villous architecture. Mild nonspecific chronic inflammation is also noted. B - Antrum, biopsy: Antral mucosa, without significant acute or chronic inflammation. No evidence for H. pylori is noted. C - GE junction, biopsy: Squamocolumnar junction mucosa with mild acute inflammation. No intestinal metaplasia is noted. D - Transverse colon, polyps, polypectomy: Adenomatous polyp/tubular adenoma fragments. E - Sigmoid polyp, polypectomy: Hyperplastic polyp fragments. 4/TR 08/25/2020 - 1447 CLINICAL DIAGNOSIS Melena, family H/O colon CA 08/23/2020 - 1457 GROSS DIAGNOSIS A - Received in formalin labeled "duodenal biopsy" is a 0.4 x 0.2 x 0.2 cm. aggregate of mucosal fragments. All in one. B - Received in formalin labeled "biopsy antrum" is a 0.4 x 0.2 x 0.2 cm. aggregate of two mucosal fragments. All in one. C - Received in formalin labeled "GE junction" is a 0.4 x 0.2 x 0.2 cm. aggregate of two mucosal fragments. All in one. D - Received in formalin labeled "transverse colon polyps" is a 0.8 x 0.6 x 0.3 cm. aggregate of polyp fragmen ts. All in one. E - Received in formalin labeled "sigmoid polyp" is a 0.6 x 0.6 x 0.3 cm. aggregate of polyp fragments. All in one. F - Received in formalin labeled "rectosigmoid polyp" is a 1.4 x 1 x 0.8 cm. polypoid fragment of colonic mucosa. No stalk is noted. A few additional fragments, 0.6 x 0.3 x 0.2 cm. are also noted in the container. The larger polyp is bisected perpendicular to base and submitted all in one along with the smaller polyp fragments. -SH 08/24/2020 - 0941 PRELIMINARY DIAGNOSIS 08/25/2020 - 1447 Signed Yanique Corona MD 08/24/2020 0941 (Prelim) Signed Yanique Corona MD 08/25/2020 1447 Procedures Date Code Description Status 08/28/2020 77769 Spirometry Completed 08/23/2020 65576 Colonoscopy W/ Poly Completed 08/23/2020 33811 Endoscopy Upper GI Biopsy Comple suki 04/27/2020 68750 Diffusing Capacity Completed 04/27/2020 64220 Plethysmography Determination Rabia ng Volumes & Per Airway Resist Completed 04/27/2020 27350 Maximum Breathing Capacity, Maxi mal Voluntary Ventilation Completed 04/27/2020 83932 Bronchospasm Evaluation Complete d 04/11/2020 38144 Spirometry Completed Medical Devices Description No Information Available Encounters Type Date Location Provider Dx Diagnosis Office Visit 08/28/2020 1:45p [facility] Vinay Blum, N.P. J45.30 Mild persistent asthma, uncomplicated F17.210 Nicotine dependence, cigaret margi, uncomplicated R91.8 Other nonspecific abnormal f inding of lung field G47.33 Obstructive sleep apnea (dixie lt) (pediatric) Office Visit 07/24/2020 3:15p [facility] Vinay Blum, N.P. R91.8 Other nonspecific abnormal finding of rabia ng field F17.210 Nicotine dependence, cigaret margi, uncomplicated J45.40 Moderate persistent asthma, uncomplicated Z71.2 Person consulting for explan ation of exam or test findings Office Visit 07/21/2020 2:30p [facility] Chance high, [employer] K92.1 Melena Z80.0 Family history of malignant neoplasm of digestive organs Office Visit 05/10/2020 2:15p [facility] Vinay Blum, N.P. R06.00 Dyspnea, unspecified R05 Cough F17.210 Nicotine dependence, cigaret margi, uncomplicated R91.8 Other nonspecific abnormal f inding of lung field Z71.2 Person consulting for explan ation of exam or test findings Office Visit 04/11/2020 1:15p [facility] Vinay Blum, N.P. R06.00 Dyspnea, unspecified R05 Cough Assessments Date Code Description Provider 08/28/2020 J45.30 Mild persistent asthma, uncompli cated Gabby Blum, N.P. 08/28/2020 F17.210 Nicotine dependence, cigarettes, uncomplicated Pat Bluma, N.P. 08/28/2020 R91.8 Other nonspecific abnormal findi ng of lung field Gabby Blum, N.P. 08/28/2020 G47.33 Obstructive sleep apnea (adult) (pediatric) Gabby Blum, N.P. 08/23/2020 Z12.11 Encounter for screening for chata gnant neoplasm of colon Tyrell Cesar MD 08/23/2020 Z80.0 Family history of malignant neop lasm of digestive organs Tyrell Cesar MD 08/23/2020 C19 Malignant neoplasm of rectosigmo id junction Tyrell Cesar MD 08/23/2020 D12.3 Benign neoplasm of transverse co aiyana Tyrell Cesar MD 08/23/2020 K92.2 Gastrointestinal hemorrhage, uns pecified Tyrell Cesar MD 08/23/2020 K29.50 Unspecified chronic gastritis wi thout bleeding Tyrell Cesar MD 08/23/2020 K25.9 Gastric ulcer, unspe cified as acute or chronic, without hemorrhage or perforation Tyrell Cesar MD 08/23/2020 D50.9 Iron deficiency anemia, unspecif ied Tyrell Cesar MD 07/24/2020 R91.8 Other nonspecific abnormal findi ng of lung field Teodora Blumsea, N.P. 07/24/2020 F17.210 Nicotine dependence, cigarettes, uncomplicated Viktoria, Gabby, N.P. 07/24/2020 J45.40 Moderate persistent asthma, unco mplicated Teodora Blumsea, N.P. 07/24/2020 Z71.2 Person consulting fo r explanation of examination or test findings Teodora Blumsea, N.P. 07/21/2020 K92.1 Yennibud Chance Elliott, MEL 07/21/2020 Z80.0 Family history of malignant neop lasm of digestive organs Chance Elliott, MEL 05/10/2020 R06.00 Dyspnea, unspecified Teodora Blums ea, N.P. 05/10/2020 R05 Cough Viktoria, Gabby, N .P. 05/10/2020 F17.210 Nicotine dependence, cigarettes, uncomplicated Viktoria, Gabby, N.P. 05/10/2020 R91.8 Other nonspecific abnormal findi ng of lung field Teodora Blumsea, N.P. 05/10/2020 Z71.2 Person consulting fo r explanation of examination or test findings Teodora Blumsea, N.P. 04/27/2020 R05 [facility] 04/11/2020 R06.00 Dyspnea, unspecified Teodora Blums ea, N.P. 04/11/2020 R05 Cough Viktoria, Gabby, N .P. Plan of Treatment Future Appointment(s):* 12/27/2020 2:15 pm - Gabby Blum, N.P. at [facility] 08/28/2020 - Teodora Blumsea, N.P.* J45.30 Mild persistent asthma, uncomplicated * F17.210 Nicotine dependence, cigarettes, uncomplicated * R91.8 Other nonspecific abnormal finding of lung field * G47.33 Obstructive sleep apnea (adult) (pediatric) * * New Labs:* FVL/[place], Scheduled: 12/27/20 * Follow up:* 1. Follow up in 4 months time with fvl/spirometry. Functional Status Functional Condition Comment Date Status Independent with all ADL's Activ e Mental Status Mental Condition Comment Date Status Cognitive ability not impaired A ctive Referrals Refer to Reason for Referral Status Appt Date Tyrell Cesar MD [facility] Closed [address] [place] [address] [phone] Radiology/Procedure NO PRIOR AUTH REQ [id number] Closed
--- OUTSIDE RECORDS SUMMARY | 2020-10-18 06:43 | CCD | Continuity of Care Document ---
Author Author Flex RIVERA MD Organization Unknown Address [id number] [place] [address], [place] [address] Phone [phone] Care Team Providers Care Dining Server Name Role Phone Eduarda Sherman DO AUTM [phone] A.M.I. Cardiac Mon AUTM [phone] Gabby Blum AUTM [phone] Olivier Membreno MD AUTM [phone] Problems Active Problems Provider Date Orthopnea Jc Rivera MD Onset: 01/18/2020 Essential hypertension Jc Rivera MD Onset: 0 Obesity Jc Rivera MD Onset: 01/18/2020 Pure hypercholesterolemia Jc Rivera MD Onset: 2019 Tobacco user Jc Rivera MD Onset: 01/18/2020 Counseling about tobacco use Jc Rivera MD Onset: 08/2020 Dietary management surveillance Jc Rivera MD Onset: 01/18/2020 Premature beats Jc Rivera MD Onset: 01/18/2020 Chest pain Jc Rivera MD Onset: 01/18/2020 Snoring Jc Rivera MD Onset: 01/18/2020 Dyspnea Jc Rivera MD Onset: 01/18/2020 Edema Jc Rivera MD Onset: 01/18/2020 Obstructive sleep apnea syndrome BRETT Martinez Onssaad t: 08/07/2020 Social History Type Date Description Comments Sex Unknown ETOH Use Rarely consumes alcohol Tobacco Use Start: Unknown Patient is a current smoker, smo kes every day 60+ year smoker, smokes 1/2ppd Smoking Status Reviewed: 08/07/20 Patient is a current smoker, smokes every day 60+ year smoker, smokes 1/2ppd Exercise Type/Frequency Walks sporadically Exercise Limitations Orthopedic Problem Knee/ Dr op foot Exercise Limitations Shortness Of Breath Allergies, Adverse Reactions, Alerts Description No Known Drug Allergies Medications Active Medications SIG Qnty Indications Ordering Provide r Date Advair HFA 115-21mcg/Act Aerosol 1 puff twice a day Christian Smith MD 08/04/2020 Carvedilol 6.25mg Tablets 1 by mouth twice a day 180tabs I10 Jc Rivera MD 05/03/2020 Ventolin HFA 108(90Base) mcg/Act A erosol 2 puffs as needed Eduarda Sherman, 0 Spironolactone 25mg Tablets 1 by mouth every day 90tabs I10 Jc Rivera MD 01/18/2020 R60.0 Atorvastatin Calcium 20mg Tablets 1 by mouth every night at bedtime 90tabs Christian Smith MD 01/17/2020 Aspirin 81mg Chewtabs 1 by mouth every day Unknown 01/17/2020 Furosemide 20mg Tablets 1 by mouth every day 90tabs Jc Rivera MD 01/17/2020 Immunizations Description No Information Available Vital Signs Date Vital Result Comment 08/07/2020 12:41pm Weight 251.00 lb Height 69 inches 5'9" BMI (Body Mass Index) 37.1 kg/m2 Heart Rate 68 /min regular Respiratory Rate 17 /min non-labored BP Systolic Sitting 128 mmHg Ra, large cuff BP Diastolic Sitting 80 mmHg Ra, large cuff BP Systolic Lying Down 130 mmHg Ra, large cuff BP Diastolic Lying Down 82 mmHg Ra, large cuff 05/03/2020 1:08pm Weight 253.00 lb Height 69 inches 5'9" BMI (Body Mass Index) 37.4 kg/m2 BP Systolic Sitting 150 mmHg BP Diastolic Sitting 90 mmHg Results Description No Information Available Procedures Description No Information Available Medical Devices Description No Information Available Encounters Type Date Location Provider Dx Diagnosis Office Visit 08/07/2020 11:27a Main Office Jc Rivera MD I10 Essential (primary) hypertension E78.00 Pure hypercholesterolemia, u nspecified F17.210 Nicotine dependence, cigaret margi, uncomplicated E66.09 Other obesity due to excess calories Office Visit 08/07/2020 12:45p Main Office BRETT Martinez I10 Essential (primary) hypertension E78.00 Pure hypercholesterolemia, u nspecified F17.210 Nicotine dependence, cigaret margi, uncomplicated E66.09 Other obesity due to excess calories R06.02 Shortness of breath G47.33 Obstructive sleep apnea (dixie lt) (pediatric) Office Visit 06/13/2020 1:00p Main Office Jc Rivera MD I10 Essential (primary) hypertension E78.00 Pure hypercholesterolemia, u nspecified F17.210 Nicotine dependence, cigaret margi, uncomplicated E66.09 Other obesity due to excess calories Office Visit 05/03/2020 12:45p Main Office BRETT [place] I10 Essential (primary) hypertension I49.3 Ventricular premature depola rization Office Visit 05/01/2020 3:35p Main Office Jc Rivera MD I10 Essential (primary) hypertension E78.00 Pure hypercholesterolemia, u nspecified F17.210 Nicotine dependence, cigaret margi, uncomplicated E66.09 Other obesity due to excess calories Assessments Date Code Description Provider 08/22/2020 I10 Essential (primary) hypertension Jc Rivera MD 08/22/2020 E78.00 Pure hypercholesterolemia, unspe cified Jc Rivera MD 08/22/2020 F17.210 Nicotine dependence, cigarettes, uncomplicated Jc Rivera MD 08/22/2020 E66.09 Other obesity due to excess trudy pancho Jc Rivera MD 08/07/2020 I10 Essential (primary) hypertension Jc Rivera MD 08/07/2020 I10 Essential (primary) hypertension BRETT Martinez 08/07/2020 E78.00 Pure hypercholesterolemia, unspe cified Jc Rivera MD 08/07/2020 E78.00 Pure hypercholesterolemia, unspe cified BRETT Martinez 08/07/2020 F17.210 Nicotine dependence, cigarettes, uncomplicated Jc Rivera MD 08/07/2020 F17.210 Nicotine dependence, cigarettes, uncomplicated BRETT Martinez 08/07/2020 E66.09 Other obesity due to excess trudy pancho Jc Rivera MD 08/07/2020 E66.09 Other obesity due to excess trudy panhco BRETT Martinez 08/07/2020 R06.02 Shortness of breath BRETT Martinez 08/07/2020 G47.33 Obstructive sleep apnea (adult) (pediatric) BRETT Martinez 06/13/2020 I10 Essential (primary) hypertension Jc Rivera MD 06/13/2020 E78.00 Pure hypercholesterolemia, unspe cified Jc Rivera MD 06/13/2020 F17.210 Nicotine dependence, cigarettes, uncomplicated Jc Rivera MD 06/13/2020 E66.09 Other obesity due to excess trudy pancho Jc Rivera MD 05/03/2020 I10 Essential (primary) hypertension BRETT Kingston 05/03/2020 I49.3 Ventricular premature depolariza tion BRETT Kingston 05/01/2020 I10 Essential (primary) hypertension Jc Rivera MD 05/01/2020 E78.00 Pure hypercholesterolemia, unspe cified Jc Rivera MD 05/01/2020 F17.210 Nicotine dependence, cigarettes, uncomplicated Jc Rivera MD 05/01/2020 E66.09 Other obesity due to excess trudy panchoadan Rivera MD Plan of Treatment Future Appointment(s):* 11/06/2020 1:30 pm - BRETT Martinez at Main Office 08/07/2020 - BRETT Martinez* I10 Essential (primary) hypertension* Recommendations:* Continue carvedilol, furosemide, and spironolactone at current dosages. Advised patient to monitor her home blood pressures. Advised patient to please call the office with blood pressure averages >140/>90. Will obtain CMP at next visit. * E78.00 Pure hypercholesterolemia, unspecified* Recommendations:* Continue atorvastatin at current dosage. * F17.210 Nicotine dependence, cigarettes, uncomplicated* Recommendations:* Advised patient of the risks of continued smoking including stroke, heart attack, COPD, emphysema, lung cancer. Encouraged patient to consider quitting. * E66.09 Other obesity due to excess calories* Recommendations:* Recommended for patient to follow a more whole food diet. Advised patient to avoid overly processed foods and packaged foods. Advised patient to avoid sodas, juices and other liquid calories. Recommended at least 30 minutes of exercise 3 days a week. * R06.02 Shortness of breath* Recommendations:* Continue carvedilol, furosemide, and spironolactone at current dosages * G47.33 Obstructive sleep apnea (adult) (pediatric) * All * Follow up:* Follow up in 3 months * Recommendations:* Please notify us for BP averaging >140/>90 Continue Spironolactone, furosemide, and carvedilol at current dosages. Continue care with Dr. Membreno for sleep apnea Functional Status Functional Condition Comment Date Status Requires assistance with ambulating Active Independent with feeding Active Independent with grooming Active Requires assistance with standing Active Independent with toileting Activ e Requires assistance with bathing Active Requires assistance with dressing Active Mental Status Description No Information Available Referrals Description No Information Available
--- OUTSIDE RECORDS SUMMARY | 2020-10-18 06:44 | CCD ---
Author Author [facility] Organization [facility] Address Unknown Phone Unavailable Care Team Providers Care Paint Crew Supervisor Name Role Phone MOLLYOL, Donovan PACK MD Unavailable Unavailable ANTECOL, Donovan PACK MD Unavailable Unavailable ANTECOL, Donovan PACK MD Unavailable Unavailable ANTECOL, Donovan PACK MD Unavailable Unavailable ANTECOL, Donovan PACK MD Unavailable Unavailable ANTECOL, Donovan PACK MD Unavailable Unavailable ANTECOL, Donovan PACK MD Unavailable Unavailable ANTECOL, Donovan PACK MD Unavailable Unavailable ANTECOL, Donovan PACK MD Unavailable Unavailable ANTECOL, Dnoovan PACK MD Unavailable Unavailable ANTECOL, Donovan PACK MD Unavailable Unavailable ANTECOL, Donovan PACK MD Unavailable Unavailable ANTECOL, Donovan PACK MD Unavailable Unavailable ANTECOL, Donovan PACK MD Unavailable Unavailable ANTECOL, Donovan PACK MD Unavailable Unavailable ANTECOL, Donovan PACK MD Unavailable Unavailable ANTECOL, Donovan PACK MD Unavailable Unavailable ANTECOL, Donovan PACK MD Unavailable Unavailable ANTECOL, Donovan PACK MD Unavailable Unavailable ANTECOL, Donovan PACK MD Unavailable Unavailable ANTECOL, Donovan PACK MD Unavailable Unavailable ANTECOL, Donovan PACK MD Unavailable Unavailable ANTECOLDonovan MD Unavailable Unavailable ANTECOLDonovan MD Unavailable Unavailable ANTECOLDonovan MD Unavailable Unavailable ANTECOLDonovan MD Unavailable Unavailable ANTECOL, Donovan PACK MD Unavailable Unavailable ANTECOL, Donovan PACK MD Unavailable Unavailable ANTECOL, Donovan PACK MD Unavailable Unavailable ANTECOL, Donovan PACK MD Unavailable Unavailable ANTECOL, Donovan PACK MD Unavailable Unavailable ANTECOL, Donovan PACK MD Unavailable Unavailable ANTECOL, Donovan PACK MD Unavailable Unavailable ANTECOLDonovan MD Unavailable Unavailable ANTECOL, Donovan PACK MD Unavailable Unavailable ANTECOL, Donovan PACK MD Unavailable Unavailable ANTECOL, Donovan PACK MD Unavailable Unavailable ANTECOL, Donovan PACK MD Unavailable Unavailable ANTECOL, Donovan PACK MD Unavailable Unavailable ANTECOL, Donovan PACK MD Unavailable Unavailable ANTECOL, Donovan PACK MD Unavailable Unavailable ANTECOL, Donovan PACK MD Unavailable Unavailable ANTECOL, Donovan PACK MD Unavailable Unavailable ANTECOL, Donovan PACK MD Unavailable Unavailable ANTECOL, Donovan PACK MD Unavailable Unavailable ANTECOL, Donovan PACK MD Unavailable Unavailable ANTECOL, Donovan PACK MD Unavailable Unavailable ANTECOL, Donovan PACK MD Unavailable Unavailable ANTECOL, Donovan PACK MD Unavailable Unavailable ANTECOL, Donovan PACK MD Unavailable Unavailable ANTECOL, Donovan PACK MD Unavailable Unavailable ANTECOL, Donovan PACK MD Unavailable Unavailable ANTECOL, Donovan PACK MD Unavailable Unavailable ANTECOL, Donovan PACK MD Unavailable Unavailable ANTECOL, Donovan PACK MD Unavailable Unavailable Yanique Corona MD Unavailable Unavailable Yanique Corona MD Unavailable Unavailable Yanique Corona MD Unavailable Unavailable Yanique Corona MD Unavailable Unavailable Yanique Corona MD Unavailable Unavailable aYnique Corona MD Unavailable Unavailable Lexi, Priscilla Chance Unavailable Unavailable Nodaway, Priscilla Chance Unavailable Unavailable Nodaway, Priscilla Chance Unavailable Unavailable Lexi, Priscilla Chance Unavailable Unavailable Nodaway, Priscilla Chance Unavailable Unavailable Lexi, Priscilla Chance Unavailable Unavailable Lexi, Priscilla Chance Unavailable Unavailable Lexi, Priscilla Chance Unavailable Unavailable Ji, L Nallely PA Unavailable Unavailable Ji, L Nallely PA Unavailable Unavailable Ji, L Nallely PA Unavailable Unavailable Ji, L Nallely PA Unavailable Unavailable Ji, L Nallely PA Unavailable Unavailable Ji, L Nallely PA Unavailable Unavailable Ji, L Nallely PA Unavailable Unavailable Ji, L Nallely PA Unavailable Unavailable Ji, L Nallely PA Unavailable Unavailable Ji, L Nallely PA Unavailable Unavailable Ji, L Nallely PA Unavailable Unavailable Ji, L Nallely PA Unavailable Unavailable Ji, L Nallely PA Unavailable Unavailable Ji, L Nallely PA Unavailable Unavailable Ji, L Nallely PA Unavailable Unavailable Ji, L Nallely PA Unavailable Unavailable Ji, L Nallely PA Unavailable Unavailable Ji, L Nallely PA Unavailable Unavailable Ji, L Nallely PA Unavailable Unavailable Ji, L Nallely PA Unavailable Unavailable Ji, L Nallely PA Unavailable Unavailable Ji, L Nallely PA Unavailable Unavailable Ji, L Nallely PA Unavailable Unavailable PINA, SREEKANTH J CARLOS ANIMAL NURSERY WORKER-C Unavailable Unavailable PINA, SREEKANTH J CARLOS ANIMAL NURSERY WORKER-C Unavailable Unavailable PINA, SREEKANTH J CARLOS ANIMAL NURSERY WORKER-C Unavailable Unavailable PINA, SREEKANTH J CARLOS ANIMAL NURSERY WORKER-C Unavailable Unavailable PINA, SREEKANTH J CARLOS ANIMAL NURSERY WORKER-C Unavailable Unavailable PINA, SREEKANTH J CARLOS ANIMAL NURSERY WORKER-C Unavailable Unavailable PINA, SREEKANTH J CARLOS ANIMAL NURSERY WORKER-C Unavailable Unavailable PINA, SREEKANTH J CARLOS ANIMAL NURSERY WORKER-C Unavailable Unavailable PINA, SREEKANTH J CARLOS ANIMAL NURSERY WORKER-C Unavailable Unavailable PINA, SREEKANTH J CARLOS ANIMAL NURSERY WORKER-C Unavailable Unavailable PINA, SREEKANTH J CARLOS ANIMAL NURSERY WORKER-C Unavailable Unavailable PINA, SREEKANTH J CARLOS ANIMAL NURSERY WORKER-C Unavailable Unavailable PINA, SREEKANTH J CARLOS ANIMAL NURSERY WORKER-C Unavailable Unavailable PINA, SREEKANTH J CARLOS ANIMAL NURSERY WORKER-C Unavailable Unavailable PINA, SREEKANTH J CARLOS ANIMAL NURSERY WORKER-C Unavailable Unavailable PINA, SREEKANTH J CARLOS ANIMAL NURSERY WORKER-C Unavailable Unavailable Arpit, G Nj Unavailable Unavailable REBECCA, L NOREEN PA Unavailable Unavailable REBECCA, L NOREEN PA Unavailable Unavailable REBECCA, L NOREEN PA Unavailable Unavailable REBECCA, L NOREEN PA Unavailable Unavailable REBECCA, L NOREEN PA Unavailable Unavailable REBECCA, L NOREEN PA Unavailable Unavailable REBECCA, L NOREEN PA Unavailable Unavailable REBECCA, L NOREEN PA Unavailable Unavailable REBECCA, L NOREEN PA Unavailable Unavailable REBECCA, L NOREEN PA Unavailable Unavailable REBECCA, L NOREEN PA Unavailable Unavailable Re-disclosure Warning The records that you are about to access may contain information from federally-assisted alcohol or drug abuse programs. If such information is present, then the following federally mandated warning applies: This information has been disclosed to you from records protected by federal confidentiality rules (42 CFR part 2). The federal rules prohibit you from making any further disclosure of this information unless further disclosure is expressly permitted by the written consent of the person to whom it pertains or as otherwise permitted by 42 CFR part 2. A general authorization for the release of medical or other information is NOT sufficient for this purpose. The Federal rules restrict any use of the information to criminally investigate or prosecute any alcohol or drug abuse patient.The records that you are about to access may contain highly sensitive health information, the redisclosure of which is protected by Article 27-F of the [facility] Public Health law. If you continue you may have access to information: Regarding HIV / AIDS; Provided by facilities licensed or operated by the [facility] Office of Mental Health; or Provided by the [facility] Office for People With Developmental Disabilities. If such information is present, then the following [facility] mandated warning applies: This information has been disclosed to you from confidential records which are protected by state law. State law prohibits you from making any further disclosure of this information without the specific written consent of the person to whom it pertains, or as otherwise permitted by law. Any unauthorized further disclosure in violation of state law may result in a fine or usp sentence or both. A general authorization for the release of medical or other information is NOT sufficient authorization for further disc losure. Family History Family Member Name Family Member Gender Family Member Status Date o f Status Description Data Source(s) Unknown Unknown Problem MEDENT ([facility]) Encounters Encounter Providers Location Date Indications Data Source(s ) Outpatient Referrer: Nj Munson 10/16/2020 11:21:0 0 AM EST Nutritional anemia, unspecified [facility] Nutritional anemia, unspecified Outpatient Attender: J CARLOS Mendieta/Harris/R eindl 08/28/2020 12:45:00 PM EST MEDENT ([facility]) Outpatient Admitter: Yanique Coroan MDReferrer: Yanique Corona MD 08/24/2020 12:00:00 AM EST [facility] Outpatient Attender: NOREEN WEST Main Office 08/07/2020 1 1:45:00 AM EST MEDENT ([facility]) Office Visit Attender: RAMONE GREEN MD Main Office 08/07/2020 10: 27:00 AM EST MED[facility] ([facility]) Unknown [address] [facility] [address] 07/28/2020 12:00:00 AM EST eCW1 ([facility]) Outpatient Attender: J CARLOS Mendieta/Harris/R eindl 07/24/2020 02:15:00 PM EST MEDENT ([facility]) Unknown [address] [facility] [address] 07/24/2020 12:00:00 AM EST eCW1 ([facility]) Outpatient Attender: Chance Robins/Mirta/Harris/Reindl 07/21/2020 01:30:00 PM EST [facility] ([facility]) [place] [address] [facility] [address] 07/17/2020 12:00:00 AM EST eCW1 ([facility]) [place] [address] [facility] [address] 07/12/2020 12:00:00 AM EST eCW1 ([facility]) [place] [address] [facility] [address] 07/12/2020 12:00:00 AM EST eCW1 ([facility]) Unknown [address] [facility] [address] 06/15/2020 12:00:00 AM EDT eCW1 ([facility]) Office Visit Attender: RAMONE GREEN MD Main Office 06/13/2020 01: 00:00 PM EDT MED[facility] ([facility]) Out[place] [address] [facility] [address] 06/12/2020 12:00:00 AM EDT eCW1 ([facility]) Outpatient Attender: J CARLOS Robins/Mirta/Harris/R eindl 05/10/2020 02:15:00 PM EDT MEDENT ([facility]) Outpatient Attender: Nallely WEST Main Office 05/03/2020 12:45:0 0 PM EDT MEDENT ([facility]) Office Visit Attender: RAMONE GREEN MD Main Office 05/01/2020 03: 35:00 PM EDT MEDENT ([facility]) Outpatient Attender: J CARLOS Robins/Mirta/Harris/R eindl 04/11/2020 01:15:00 PM EDT MEDENT ([facility]) Office Visit Attender: RAMONE GREEN MD Main Office 03/24/2020 11: 17:00 AM EDT MED[facility] ([facility]) Outpatient [address] [facility] [address] 03/08/2020 12:00:00 AM EDT eCW1 ([facility]) [place]patient [address] [facility] [address] 02/02/2020 12:00:00 AM EDT eCW1 ([facility]) [facility] [place] [address] [facility] [address] 01/28/2020 12:00:00 AM EDT eCW1 ([facility]) Outpatient Attender: RAMONE GREEN MD Main Office 01/18/2020 08:45:00 AM EDT MEDENT ([facility]) [facility] [place] [address] [facility] [address] 01/13/2020 12:00:00 AM EDT eCW1 ([facility]) [facility] [place] [address] [facility] [address] 01/06/2020 12:00:00 AM EDT eCW1 ([facility]) Outpatient 12/21/2019 01:53:00 PM EDT [facility] [place] [address] [facility] [address] 12/10/2019 12:00:00 AM EDT eCW1 ([facility]) [facility] [place] [facility] [address] 11/18/2019 12:00:00 AM EDT eCW1 ([facility]) [facility] Travis Rosa [address] [facility] [address] 11/18/2019 12:00:00 AM EDT eCW1 ([facility]) [facility] [place] [facility] [address] 11/08/2019 12:00:00 AM EST eCW1 ([facility]) [facility] [place] [facility] [address] 10/20/2019 12:00:00 AM EST eCW1 ([facility]) Medications Medication Brand Name Start Date Product Form Dose Route Admi nistrative Instructions Pharmacy Instructions Status Indications Reaction Description Data Source(s) pantoprazole 40 MG Delayed Release Oral Tablet PANTOPRAZOLE SODIUM 08/24/2020 12:00:00 AM EST tablet,delayed release (DR/EC) 90 T SAVANAH ONE TABLET BY MOUTH EVERY DAY TAKE ONE TABLET BY MOUTH EVERY DAY SOLD: 08/25/2020 [facility] pantoprazole 40 MG Delayed Release Oral Tablet Pantoprazole Sodium 08/24/2020 12:00:00 AM EST ORAL active M EDENT ([facility], ) Suprep Bowel Prep Kit Suprep Bowel Prep Kit 08/16/2020 12:00:00 AM EST completed MEDENT ([facility], ) 120 ACTUAT Fluticasone propionate 0.115 MG/ACTUAT / salmeterol 0.021 MG/ACTUAT Metered Dose Inhaler [Advair] Advair HFA 08/04/2020 12:00:00 AM EST RESPIRATORY active MEDENT ( [facility]) 115-21 mcg/actuation 07/24/2020 12:00:00 AM EST HFA aerosol inhaler 12 INHALE TWO PUFFS BY MOUTH TWICE A DAY INHALE TWO PUFFS BY MOUTH TWICE A DAY SOLD: 10/02/2020 [facility] 115-21 mcg/actuation 07/24/2020 12:00:00 AM EST HFA aerosol inhaler 12 INHALE TWO PUFFS BY MOUTH TWICE A DAY INHALE TWO PUFFS BY MOUTH TWICE A DAY SOLD: 07/26/2020 [facility] 115-21 mcg/actuation 07/24/2020 12:00:00 AM EST HFA aerosol inhaler 12 INHALE TWO PUFFS BY MOUTH TWICE A DAY INHALE TWO PUFFS BY MOUTH TWICE A DAY SOLD: 08/25/2020 [facility] 120 ACTUAT Fluticasone propionate 0.115 MG/ACTUAT / salmeterol 0.021 MG/ACTUAT Metered Dose Inhaler [Advair] Advair HFA 07/24/2020 12:00:00 AM EST RESPIRATORY active MEDENT ( [facility], ) 25 mg 05/05/2020 12:00:00 AM EDT tablet 90 TAKE ONE TABLET BY MOUTH EVERY DAY TAKE ONE TABLET BY MOUTH EVERY DAY SOLD: 05/16/2020 [facility] 25 mg 05/05/2020 12:00:00 AM EDT tablet 90 TAKE ONE TABLET BY MOUTH EVERY DAY TAKE ONE TABLET BY MOUTH EVERY DAY SOLD: 08/10/2020 [facility] carvedilol 6.25 MG Oral Tablet CARVEDILOL 05/04/2020 12:00:00 AM EDT tablet 180 TAKE ONE TABLET BY MOUTH TWICE A DAY TAKE ONE TABLET BY MOUT H TWICE A DAY SOLD: 08/01/2020 [facility] carvedilol 6.25 MG Oral Tablet CARVEDILOL 05/04/2020 12:00:00 AM EDT tablet 180 TAKE ONE TABLET BY MOUTH TWICE A DAY TAKE ONE TABLET BY MOUT H TWICE A DAY SOLD: 05/04/2020 [facility] carvedilol 6.25 MG Oral Tablet Carvedilol 05/03/2020 12:00:00 AM EDT ORAL active [facility] ([facility]) 200 ACTUAT Albuterol 0.09 MG/ACTUAT Metered Dose Inhal er [Ventolin] Ventolin HFA 05/02/2020 12:00:00 AM EDT RESPIRATORY active MEDENT ([facility]) 20 mg 05/02/2020 12:00:00 AM EDT tablet 90 TAKE ONE TABLET BY MOUTH EVERY DAY TAKE ONE TABLET BY MOUTH EVERY DAY SOLD: 05/04/2020 [facility] 20 mg 05/02/2020 12:00:00 AM EDT tablet 90 TAKE ONE TABLET BY MOUTH EVERY DAY TAKE ONE TABLET BY MOUTH EVERY DAY SOLD: 09/20/2020 [facility] 90 mcg/actuation 02/03/2020 12:00:00 AM EDT HFA aerosol inha ler 18 INHALE ONE PUFF BY MOUTH EVERY 4 HOURS NEEDED INHALE ONE PUFF BY MOUTH EVERY 4 HOURS NEEDED SOLD: 06/10/2020 [facility] 90 mcg/actuation 02/03/2020 12:00:00 AM EDT HFA aerosol inha ler 18 INHALE ONE PUFF BY MOUTH EVERY 4 HOURS NEEDED INHALE ONE PUFF BY MOUTH EVERY 4 HOURS NEEDED SOLD: 02/03/2020 [facility] 20 mg 02/03/2020 12:00:00 AM EDT tablet 30 TAKE ONE TABLET BY MOUTH EVERY DAY TAKE ONE TABLET BY MOUTH EVERY DAY SOLD: 02/03/2020 [facility] 20 mg 02/03/2020 12:00:00 AM EDT tablet 30 TAKE ONE TABLET BY MOUTH EVERY DAY TAKE ONE TABLET BY MOUTH EVERY DAY SOLD: 04/03/2020 [facility] 90 mcg/actuation 02/03/2020 12:00:00 AM EDT HFA aerosol inha ler 18 INHALE ONE PUFF BY MOUTH EVERY 4 HOURS NEEDED INHALE ONE PUFF BY MOUTH EVERY 4 HOURS NEEDED SOLD: 04/13/2020 [facility] 20 mg 02/03/2020 12:00:00 AM EDT tablet 30 TAKE ONE TABLET BY MOUTH EVERY DAY TAKE ONE TABLET BY MOUTH EVERY DAY SOLD: 03/05/2020 [facility] INHALER, ASSIST DEVICES 02/03/2020 12:00:00 AM EDT spacer 1 USE DIRECTED USE DIRECTED SOLD: 02/03/2020 [facility] Albuterol Sulfate HFA 108 (90 Base) MCG/ACT Albuterol Sulfate HFA 108 (90 Base) MCG/ACT 02/02/2020 12:00:00 AM EDT 1.0 {puff_as_needed} active Albuterol Sulfate HFA 108 (90 Base) MCG/ACT eCW1 ([facility]) Albuterol Sulfate HFA 108 (90 Base) MCG/ACT Albuterol Sulfate HFA 108 (90 Base) MCG/ACT 02/02/2020 12:00:00 AM EDT 1.0 {puff_as_needed} active Albuterol Sulfate HFA 108 (90 Base) MCG/ACT eCW1 ([facility]) Albuterol Sulfate HFA 108 (90 Base) MCG/ACT Albuterol Sulfate HFA 108 (90 Base) MCG/ACT 02/02/2020 12:00:00 AM EDT 1.0 {puff_as_needed} active Albuterol Sulfate HFA 108 (90 Base) MCG/ACT eCW1 ([facility]) Pocket Spacer - Pocket Spacer - 02/02/2020 12:00:00 AM EDT active Pocket Spacer - eCW1 ([facility]) Pocket Spacer - Pocket Spacer - 02/02/2020 12:00:00 AM EDT active Pocket Spacer - eCW1 ([facility]) Pocket Spacer - Pocket Spacer - 02/02/2020 12:00:00 AM EDT active Pocket Spacer - eCW1 ([facility]) Pocket Spacer - Pocket Spacer - 02/02/2020 12:00:00 AM EDT active Pocket Spacer - eCW1 ([facility]) Albuterol Sulfate HFA 108 (90 Base) MCG/ACT Albuterol Sulfate HFA 108 (90 Base) MCG/ACT 02/02/2020 12:00:00 AM EDT 1.0 {puff_as_needed} active Albuterol Sulfate HFA 108 (90 Base) MCG/ACT eCW1 ([facility]) Pocket Spacer - Pocket Spacer - 02/02/2020 12:00:00 AM EDT active Pocket Spacer - eCW1 ([facility]) Albuterol Sulfate HFA 108 (90 Base) MCG/ACT Albuterol Sulfate HFA 108 (90 Base) MCG/ACT 02/02/2020 12:00:00 AM EDT 1.0 {puff_as_needed} active Albuterol Sulfate HFA 108 (90 Base) MCG/ACT eCW1 ([facility]) Pocket Spacer - Pocket Spacer - 02/02/2020 12:00:00 AM EDT active Pocket Spacer - eCW1 ([facility]) Pocket Spacer - Pocket Spacer - 02/02/2020 12:00:00 AM EDT active Pocket Spacer - eCW1 ([facility]) Albuterol Sulfate HFA 108 (90 Base) MCG/ACT Albuterol Sulfate HFA 108 (90 Base) MCG/ACT 02/02/2020 12:00:00 AM EDT 1.0 {puff_as_needed} active Albuterol Sulfate HFA 108 (90 Base) MCG/ACT eCW1 ([facility]) Albuterol Sulfate HFA 108 (90 Base) MCG/ACT Albuterol Sulfate HFA 108 (90 Base) MCG/ACT 02/02/2020 12:00:00 AM EDT 1.0 {puff_as_needed} active Albuterol Sulfate HFA 108 (90 Base) MCG/ACT eCW1 ([facility]) Pocket Spacer - Pocket Spacer - 02/02/2020 12:00:00 AM EDT active Pocket Spacer - eCW1 ([facility]) Pocket Spacer - Pocket Spacer - 02/02/2020 12:00:00 AM EDT active Pocket Spacer - eCW1 ([facility]) Albuterol Sulfate HFA 108 (90 Base) MCG/ACT Albuterol Sulfate HFA 108 (90 Base) MCG/ACT 02/02/2020 12:00:00 AM EDT 1.0 {puff_as_needed} active Albuterol Sulfate HFA 108 (90 Base) MCG/ACT eCW1 ([facility]) Albuterol Sulfate HFA 108 (90 Base) MCG/ACT Albuterol Sulfate HFA 108 (90 Base) MCG/ACT 02/02/2020 12:00:00 AM EDT 1.0 {puff_as_needed} active Albuterol Sulfate HFA 108 (90 Base) MCG/ACT eCW1 ([facility]) 25 mg 01/18/2020 12:00:00 AM EDT tablet 30 TAKE ONE TABLET BY MOUTH EVERY DAY TAKE ONE TABLET BY MOUTH EVERY DAY SOLD: 04/13/2020 [facility] 25 mg 01/18/2020 12:00:00 AM EDT tablet 30 TAKE ONE TABLET BY MOUTH EVERY DAY TAKE ONE TABLET BY MOUTH EVERY DAY SOLD: 02/15/2020 [facility] 25 mg 01/18/2020 12:00:00 AM EDT tablet 30 TAKE ONE TABLET BY MOUTH EVERY DAY TAKE ONE TABLET BY MOUTH EVERY DAY SOLD: 03/14/2020 [facility] 25 mg 01/18/2020 12:00:00 AM EDT tablet 30 TAKE ONE TABLET BY MOUTH EVERY DAY TAKE ONE TABLET BY MOUTH EVERY DAY SOLD: 01/18/2020 [facility] Spironolactone 25 MG Oral Tablet Spironolactone 01/18/2020 12:00:00 A M EDT ORAL active [facility] ([facility] Aspirin 81 MG Chewable Tablet Aspirin 01/17/2020 12:00:00 AM EDT ORAL active [facility] ([facility]) Furosemide 20 MG Oral Tablet Furosemide 01/17/2020 12:00:00 AM EDT ORAL active [facility] ([facility]) Amlodipine 5 MG Oral Tablet Amlodipine Besylate 01/17/2020 12:00:00 A M EDT ORAL completed [facility] ([facility]) atorvastatin 20 MG Oral Tablet Atorvastatin Calcium 01/17/2020 1 2:00:00 AM EDT ORAL active MED[facility] ( [facility]) Furosemide 20 MG Oral Tablet Furosemide 20 MG 01/06/2020 12:00:00 A M EDT 1.0 {tablet} active Furosemide 20 MG eCW1 ( [facility]) Furosemide 20 MG Oral Tablet Furosemide 20 MG 01/06/2020 12:00:00 A M EDT 1.0 {tablet} active Furosemide 20 MG eCW1 ( [facility]) Furosemide 20 MG Oral Tablet Furosemide 20 MG 01/06/2020 12:00:00 A M EDT 1.0 {tablet} active Furosemide 20 MG eCW1 ( [facility]) Furosemide 20 MG Oral Tablet Furosemide 20 MG 01/06/2020 12:00:00 AM E DT active 1 tablet eCW1 ([facility]) Furosemide 20 MG Oral Tablet Furosemide 20 MG 01/06/2020 12:00:00 A M EDT 1.0 {tablet} active Furosemide 20 MG eCW1 ( [facility]) Furosemide 20 MG Oral Tablet Furosemide 20 MG 01/06/2020 12:00:00 A M EDT 1.0 {tablet} active Furosemide 20 MG eCW1 ( [facility]) Furosemide 20 MG Oral Tablet Furosemide 20 MG 01/06/2020 12:00:00 A M EDT 1.0 {tablet} active Furosemide 20 MG eCW1 ( [facility]) Furosemide 20 MG Oral Tablet Furosemide 20 MG 01/06/2020 12:00:00 A M EDT 1.0 {tablet} active Furosemide 20 MG eCW1 ( [facility]) Furosemide 20 MG Oral Tablet Furosemide 20 MG 01/06/2020 12:00:00 A M EDT 1.0 {tablet} active Furosemide 20 MG eCW1 ( [facility]) Furosemide 20 MG Oral Tablet Furosemide 20 MG 01/06/2020 12:00:00 AM E DT active 1 tablet eCW1 ([facility]) 20 mg 01/06/2020 12:00:00 AM EDT tablet 30 TAKE ONE TABLET BY MOUTH EVERY DAY TAKE ONE TABLET BY MOUTH EVERY DAY SOLD: 01/07/2020 [facility] Furosemide 20 MG Oral Tablet Furosemide 20 MG 01/06/2020 12:00:00 A M EDT 1.0 {tablet} active Furosemide 20 MG eCW1 ( [facility]) atorvastatin 20 MG Oral Tablet ATORVASTATIN CALCIUM 12/11/2019 1 2:00:00 AM EDT tablet 90 TAKE ONE TABLET BY MOUTH EVERY D AY TAKE ONE TABLET BY MOUTH EVERY DAY SOLD: 12/13/2019 [facility] atorvastatin 20 MG Oral Tablet ATORVASTATIN CALCIUM 12/11/2019 1 2:00:00 AM EDT tablet 90 TAKE ONE TABLET BY MOUTH EVERY D AY TAKE ONE TABLET BY MOUTH EVERY DAY SOLD: 03/14/2020 [facility] Nicotine 4 MG Chewing Gum [Nicorette] Nicorette 4 MG Nicoret te 4 MG 11/18/2019 12:00:00 AM EDT suspended Nicor ette 4 MG eCW1 ([facility]) Nicotine 4 MG Chewing Gum [Nicorette] Nicorette 4 MG Nicoret te 4 MG 11/18/2019 12:00:00 AM EDT suspended Nicor ette 4 MG eCW1 ([facility]) atorvastatin 20 MG Oral Tablet Atorvastatin Calcium 20 MG Atorvastatin Calcium 20 MG 11/18/2019 12:00:00 AM EDT 1.0 {tablet} activ e Atorvastatin Calcium 20 MG eCW1 ([facility]) atorvastatin 20 MG Oral Tablet Atorvastatin Calcium 20 MG Atorvastatin Calcium 20 MG 11/18/2019 12:00:00 AM EDT 1.0 {tablet} activ e Atorvastatin Calcium 20 MG eCW1 ([facility]) atorvastatin 20 MG Oral Tablet Atorvastatin Calcium 20 MG Atorvastatin Calcium 20 MG 11/18/2019 12:00:00 AM EDT 1.0 {tablet} activ e Atorvastatin Calcium 20 MG eCW1 ([facility]) atorvastatin 20 MG Oral Tablet ATORVASTATIN CALCIUM 11/18/2019 1 2:00:00 AM EDT tablet 30 TAKE ONE TABLET BY MOUTH EVERY D AY TAKE ONE TABLET BY MOUTH EVERY DAY SOLD: 08/17/2020 [facility] atorvastatin 20 MG Oral Tablet Atorvastatin Calcium 20 MG Atorvastatin Calcium 20 MG 11/18/2019 12:00:00 AM EDT 1.0 {tablet} activ e Atorvastatin Calcium 20 MG eCW1 ([facility]) Nicotine 4 MG Chewing Gum [Nicorette] Nicorette 4 MG Nicoret te 4 MG 11/18/2019 12:00:00 AM EDT suspended Nicor ette 4 MG eCW1 ([facility]) atorvastatin 20 MG Oral Tablet ATORVASTATIN CALCIUM 11/18/2019 1 2:00:00 AM EDT tablet 30 TAKE ONE TABLET BY MOUTH EVERY D AY TAKE ONE TABLET BY MOUTH EVERY DAY SOLD: 07/19/2020 [facility] Nicotine 4 MG Chewing Gum [Nicorette] Nicorette 4 MG Nicoret te 4 MG 11/18/2019 12:00:00 AM EDT suspended Nicor ette 4 MG eCW1 ([facility]) atorvastatin 20 MG Oral Tablet Atorvastatin Calcium 20 MG Atorvastatin Calcium 20 MG 11/18/2019 12:00:00 AM EDT active 1 tablet eCW1 ([facility]) atorvastatin 20 MG Oral Tablet ATORVASTATIN CALCIUM 11/18/2019 1 2:00:00 AM EDT tablet 30 TAKE ONE TABLET BY MOUTH EVERY D AY TAKE ONE TABLET BY MOUTH EVERY DAY SOLD: 09/20/2020 [facility] Nicotine 4 MG Chewing Gum [Nicorette] Nicorette 4 MG Nicoret te 4 MG 11/18/2019 12:00:00 AM EDT suspended Nicor ette 4 MG eCW1 ([facility]) atorvastatin 20 MG Oral Tablet ATORVASTATIN CALCIUM 11/18/2019 1 2:00:00 AM EDT tablet 30 TAKE ONE TABLET BY MOUTH EVERY D AY TAKE ONE TABLET BY MOUTH EVERY DAY SOLD: 11/18/2019 [facility] atorvastatin 20 MG Oral Tablet Atorvastatin Calcium 20 MG Atorvastatin Calcium 20 MG 11/18/2019 12:00:00 AM EDT active 1 tablet eCW1 ([facility]) atorvastatin 20 MG Oral Tablet Atorvastatin Calcium 20 MG Atorvastatin Calcium 20 MG 11/18/2019 12:00:00 AM EDT active 1 tablet eCW1 ([facility]) Nicotine 4 MG Chewing Gum [Nicorette] Nicorette 4 MG Nicoret te 4 MG 11/18/2019 12:00:00 AM EDT active 1 piece for 30 minute as needed eCW1 ([facility]) atorvastatin 20 MG Oral Tablet Atorvastatin Calcium 20 MG Atorvastatin Calcium 20 MG 11/18/2019 12:00:00 AM EDT 1.0 {tablet} activ e Atorvastatin Calcium 20 MG eCW1 ([facility]) Nicotine 4 MG Chewing Gum [Nicorette] Nicorette 4 MG Nicoret te 4 MG 11/18/2019 12:00:00 AM EDT active 1 piece for 30 minute as needed eCW1 ([facility]) Nicotine 4 MG Chewing Gum [Nicorette] Nicorette 4 MG Nicoret te 4 MG 11/18/2019 12:00:00 AM EDT active 1 piece for 30 minute as needed eCW1 ([facility]) atorvastatin 20 MG Oral Tablet Atorvastatin Calcium 20 MG Atorvastatin Calcium 20 MG 11/18/2019 12:00:00 AM EDT active 1 tablet eCW1 ([facility]) atorvastatin 20 MG Oral Tablet Atorvastatin Calcium 20 MG Atorvastatin Calcium 20 MG 11/18/2019 12:00:00 AM EDT active 1 tablet eCW1 ([facility]) atorvastatin 20 MG Oral Tablet ATORVASTATIN CALCIUM 11/18/2019 1 2:00:00 AM EDT tablet 30 TAKE ONE TABLET BY MOUTH EVERY D AY TAKE ONE TABLET BY MOUTH EVERY DAY SOLD: 06/16/2020 [facility] Nicotine 4 MG Chewing Gum [Nicorette] Nicorette 4 MG Nicoret te 4 MG 11/18/2019 12:00:00 AM EDT active 1 piece for 30 minute as needed eCW1 ([facility]) atorvastatin 20 MG Oral Tablet Atorvastatin Calcium 20 MG Atorvastatin Calcium 20 MG 11/18/2019 12:00:00 AM EDT 1.0 {tablet} activ e Atorvastatin Calcium 20 MG eCW1 ([facility]) atorvastatin 20 MG Oral Tablet Atorvastatin Calcium 20 MG Atorvastatin Calcium 20 MG 11/18/2019 12:00:00 AM EDT 1.0 {tablet} activ e Atorvastatin Calcium 20 MG eCW1 ([facility]) Nicotine 4 MG Chewing Gum [Nicorette] Nicorette 4 MG Nicoret te 4 MG 11/18/2019 12:00:00 AM EDT suspended Nicor ette 4 MG eCW1 ([facility]) Nicotine 4 MG Chewing Gum [Nicorette] Nicorette 4 MG Nicoret te 4 MG 11/18/2019 12:00:00 AM EDT suspended Nicor ette 4 MG eCW1 ([facility]) Nicotine 4 MG Chewing Gum [Nicorette] Nicorette 4 MG Nicoret te 4 MG 11/18/2019 12:00:00 AM EDT suspended Nicor ette 4 MG eCW1 ([facility]) atorvastatin 20 MG Oral Tablet Atorvastatin Calcium 20 MG Atorvastatin Calcium 20 MG 11/18/2019 12:00:00 AM EDT 1.0 {tablet} activ e Atorvastatin Calcium 20 MG eCW1 ([facility]) Nicotine 4 MG Chewing Gum [Nicorette] Nicorette 4 MG Nicoret te 4 MG 11/18/2019 12:00:00 AM EDT active Nicorett e 4 MG eCW1 ([facility]) atorvastatin 20 MG Oral Tablet Atorvastatin Calcium 20 MG Atorvastatin Calcium 20 MG 11/18/2019 12:00:00 AM EDT 1.0 {tablet} activ e Atorvastatin Calcium 20 MG eCW1 ([facility]) 5 mg 11/09/2019 12:00:00 AM EST tablet 90 TAKE ONE TABLET BY MOUTH EVERY DAY TAKE ONE TABLET BY MOUTH EVERY DAY SOLD: 11/09/2019 [facility] Insurance Providers Payer name Policy type / Coverage type Policy ID Covered republican ID Covered republican's relationship to felix Policy Felix Plan Information MEDICARE [id number] SP [id number] MEDICARE A [id number] Self [id number] MEDICARE C [id number] S [id number] ANSI-Medicare Part B [id number] ANSI-Medicare Part B [id number] Medicare Dme Supplies [facility] Part B [id number] Self [id number] [place] Primary [id number] Self [id number] JOHN Guidry () Workers Compensation [id number] Self [id number] Hue Sexton () Workers Compensation [id number] Self [id number] ANSI-Medicare Part [id number] Medicare Dme Supplies [facility] Part B [id number] Self [id number] [place] Primary [id number] Self [id number] ANSI-Medicare Part B [id number] ANS-Medicare Part B [id number] Medicare Dme Supplies [facility] Part B [id number] Self [id number] Medicare [place] Primary [id number] Self [id number] ANSI-Medicare Part B [id number] ANS-Medicare Part B [id number] ANS-Medicare Part B [id number] Medicare Natl Gov't Servi Medicare Primary [id number] Self [id number] Problems, Conditions, and Diagnoses Code Display Name Description Problem Type Effective Dates Data Source(s) 47336234 Obstructive sleep apnea syndrome Obstructive sle ep apnea syndrome Problem 08/07/2020 12:00:00 AM EST [facility] ([facility]) G47.33 27222817 Obstructive sleep apnea Problem 07/28/2020 1 2:00:00 AM EST eCW1 ([facility]) 70701573 Essential hypertension Essential hypertension Problem 07/21/2020 12:00:00 AM EST MED[facility] ([facility], ) G62.9 359422226 Neuropathy Problem 03/08/2020 12:00:00 AM ED T eCW1 ([facility]) 435990653 Edema Edema Problem 01/18/2020 12:00:00 AM ED T [facility] ([facility]) 070129598 Dyspnea Dyspnea Problem 01/18/2020 12:00:00 AM ED T [facility] ([facility]) 30881502 Snoring Snoring Problem 01/18/2020 12:00:00 AM ED T [facility] ([facility]) 92160836 Chest pain Chest pain Problem 01/18/2020 12:00:00 AM ED T [facility] ([facility]) 11585903 Premature beats Premature beats Problem 01/18/2020 12:0 0:00 AM EDT [facility] ([facility]) 124353039 Dietary management surveillance Dietary manageme nt surveillance Problem 01/18/2020 12:00:00 AM EDT [facility] ([facility]) 147019481 Counseling about tobacco use Counseling about tobacco use Problem 01/18/2020 12:00:00 AM EDT [facility] ([facility]) 186345329 Tobacco user Tobacco user Problem 01/18/2020 12:00:00 A M EDT [facility] ([facility]) 949766697 Pure hypercholesterolemia Pure hypercholesterolemia Pr oblem 01/18/2020 12:00:00 AM EDT [facility] ([facility]) 845220167 Obesity Obesity Problem 01/18/2020 12:00:00 AM ED T [facility] ([facility]) 03881516 Essential hypertension Essential hypertension Problem 01/18/2020 12:00:00 AM EDT [facility] ([facility]) 87172819 Orthopnea Orthopnea Problem 01/18/2020 12:00:00 AM ED T [facility] ([facility]) F17.218 [id number] 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 Problem 11/18/2019 12:00:00 AM EDT eCW1 ([facility]) E78.00 589311718 Pure hypercholesterolemia Problem 11/18/2019 12:00:00 AM EDT eCW1 ([facility]) F17.218 [id number] 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 Problem 11/18/2019 12:00:00 AM EDT eCW1 ([facility]) E78.00 283539323 Pure hypercholesterolemia Problem 11/18/2019 12:00:00 AM EDT eCW1 ([facility]) I63.9 289460783 Cerebrovascular accident (CVA), unspecifi ed mechanism Problem 10/20/2019 12:00:00 AM EST eCW1 ([facility]) I63.9 974631188 Cerebrovascular accident (CVA), unspecifi ed mechanism Problem 10/20/2019 12:00:00 AM EST eCW1 ([facility]) D53.9 Nutritional anemia, unspecified Nutritional anemia, un specified Diagnosis 10/16/2020 11:21:00 AM [facility] K92.1 Melena Melena Diagnosis 08/24/2020 02:41:00 PM [facility] Surgeries/Procedures Procedure Description Date Indications Data Source(s) Spirometry 08/28/2020 12:00:00 AM EST M EDENT ([facility], ) Endoscopy Upper GI Biopsy 08/23/2020 12:00:00 AM EST [facility] ([facility]) Colonoscopy W/ Poly 08/23/2020 12:00:00 AM EST [facility] ([facility]) Bronchospasm Evaluation 04/27/2020 12:00:00 AM EDT [facility] ([facility]) Maximum Breathing Capacity, Maximal Voluntary Ventilation 04/27/2020 12:00:00 AM EDT MED[facility] ([facility]) Plethysmography Determination Lung Volumes & Per Airway Resi st 04/27/2020 12:00:00 AM EDT [facility] ([facility]) DIFFUSING CAPACITY 04/27/2020 12:00:00 AM EDT [facility] ([facility]) Spirometry 04/11/2020 12:00:00 AM EDT M EDENT ([facility]) ECHO TTHRC R-T 2D W/WOM-MODE COMPL SPEC&COLR DOP 01/27 12:00:00 AM EDT [facility] ([facility]) XTRNL ECG < 48 HR RECORDING 01/26/2020 12:00:00 AM EDT [facility] ([facility]) XTRNL ECG CONTINUOUS RHYTHM PHYS REVIEW&INTERPJ 2019 12:00:00 AM EDT [facility] ([facility]) MYOCRD IMAGE PET PERFUS MULTPL STUDY REST/STRESS 01/18 12:00:00 AM EDT [facility] ([facility]) CV STRS TST XERS&/OR RX CONT ECG I&R ONLY 01/19/2020 1 2:00:00 AM EDT [facility] ([facility]) ECG ROUTINE ECG W/LEAST 12 LDS W/I&R 01/18/2020 12:00: 00 AM EDT [facility] ([facility]) Arterial Pressure Waveform Analysis For Assessment Of Centra l Art 01/18/2020 12:00:00 AM EDT [facility] ([facility]) Office Visit, Est Pt., Level 4 FC 01/06/2020 12:00:00 AM EDT eCW1 ([facility]) Office Visit, Est Pt., Level 4 PC 01/06/2020 12:00:00 AM EDT eCW ([facility]) Medicare, Tricare, [place], FC-ELECTROCARDIOGRAM, TRACING ON LY 01/06/2020 12:00:00 AM EDT eC ([facility]) Medicare, Tricare, [place], PC-INTERPRETATION AND REPORT 01/06/2020 12:00:00 AM EDT eCW1 ([facility]) Office Visit, Est Pt., Level 2 FC 11/18/2019 12:00:00 AM EDT eCW1 ([facility]) Office Visit, Est Pt., Level 3 PC 10/20/2019 12:00:00 AM EST eCW1 ([facility]) Results ID Date Data Source [id number] 10/13/2020 09:30:00 AM EST [facility] Name Value Range Interpretation Code Description Data Janette rce(s) Supporting Document(s) SARS coronavirus 2 RNA Not Detected [facility] This lab was ordered by [facility] and reported by [facility]. ID Date Data Source [id number] 08/25/2020 12:21:00 PM EST [facility] Surgical Pathology ReportName: HUMERA FRANKLINMRN: [id number] Number: [id number] Date: 08/24/2020 00:00Received Date: 08/24/2020 14:43Physician(s): YANIQUE CORONA MD HAGHIR, SHAHANDEH F,HEBERTpecimen(s) ReceivedA: Material received for consultation, GDLRClinical HistoryMelena and family history of colon cancer. Rectosigmoid polyps with atleast high grade dysplasia. For consultation.DiagnosisRECTOSIGMOID, POLYPECTOMY ([id number], 08/1620): ADENOCARCINOMA ARISINGIN TUBULOVILLOUS ADENOMA. HYPERPLASTIC POLYPS. (See MicroscopicDescription).Synoptic Report:Specimen Specimen Integrity: IntactTumor Tumor Site: Rectosigmoid region Histologic Type: Adenocarcinoma Histologic Grade: G1: Well differentiated Size of Invasive Carcinoma: 0.18 Centimeters (cm) Tumor Extension: Tumor invades submucosa Lymphovascular Invasion: Not identified Tumor Budding: Cannot be determined Type of Polyp in Which Invasive Carcinoma Arose: Tubulovillousadenoma Polyp Size: 1.4 x 1.0 x 0.8 Centimeters (cm) Polyp Configuration: SessileMargins Deep Margin: Uninvolved by invasive carcinoma Distance of Invasive Carcinoma from Margin: 2 mmAdditional Fi ndings Additional Findings: Other polyps - hyperplastic polyps [facility] October 2019 Annual Release Electronically Signed By Jadon Rodríguez M.D., Attending Wergvfogmbk89/18/2020 12:21:00 Gross [facility] [place], [place], two H and Estained slides, one paraffin block, labeled [id number], with thecorresponding pathology report. Microscopic DescriptionI completely agree with your concern about this colon polyp. Sectionsshow a tubulovillous adenoma with high grade dysplasia and focus of welldifferentiated adenocarcinoma invading the submucosa. Despite the lack ofa desmoplastic stromal reaction, there are nests of douu-sf-agdj andcribriform malignant glands, same with necrosis beyond the muscularismucosae and next to submucosal blood vessels. These finding are those of awell-differentiated adenocarcinoma invading the submucosa. The margin isnegative (2 mm. clearance) and there is no evidence of poorlydifferentiated histology or vascular invasion to suggest that furthertreatment is necessary. Thank you for letting me see this case inconsultation.This report may include one or more immunohistochemical stain results thatuse analyte specific reagents. All positive and negative controls havebeen reviewed by the attending pathologist and are satisfactory. The testswere developed and their performance characteristics determined by [facility] Pathology department. They have not been cleared or approved by the USFood and Drug Administration. The FDA has determined that such clearanceor approval is not necessary. 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 The carcinoma invades the submucosa. The resection margin is free, approximately 2mm away from the carcinoma. Fragments of hyperplastic polyp are also noted. A consultation was obtained from [facility], please see complete report [id number]. pT1 A - Duodenal biopsy: Small intestinal [...] one along with the smaller polyp fragments. - 08/24/2020 - 0941 PRELIMINARY DIAGNOSIS 08/25/2020 - 1447 Signed Yanique Corona MD 08/24/2020 0941 (Prelim) Signed Yanique Corona MD 08/25/2020 1447 ID Date Data Source [id number] 08/18/2020 09:50:00 AM EST [facility] Name Value Range Interpretation Code Description Data Janette rce(s) Supporting Document(s) SARS coronavirus 2 RNA [facility] This lab was ordered by [facility] and reported by [facility]. ID Date Data Source [id number] 07/12/2020 03:30:00 PM EST [facility] Name Value Range Interpretation Code Description Data Janette rce(s) Supporting Document(s) SARS coronavirus 2 RNA [facility] This lab was ordered by [facility] and reported by [facility]. ID Date Data Source Coronavirus 2019 Nasopharygeal (Send Out) COVID 07/12/2020 1 2:00:00 AM EST eCW1 ([facility]) Name Value Range Interpretation Code Description Data Janette rce(s) Supporting Document(s) We are UNABLE to reliably determine a result for the CORONAVIRUS 2019 NASOPHARYGEAL eCW1 ([facility]) ID Date Data Source [id number] 04/27/2020 03:06:00 PM EDT MED[facility] ([facility], ) Name Value Range Interpretation Code Description Data Janette rce(s) Supporting Document(s) Misc Laboratory test result [facility] ([facility], ) ID Date Data Source [id number] 01/18/2020 10:48:00 AM EDT [facility] Name Value Range Interpretation Code Description Data Janette rce(s) Supporting Document(s) Natriuretic peptide.B prohormone N-Terminal [Mass/volu me] in Serum or Plasma 851 pg/mL 0-486 [facility] ([facility]) <content>The following cut-points have b een suggested for the</content>
<content>use of proBNP for the diagnostic evaluation of heart</content>
<content>failure (HF) in patients with acute dy spnea:</content>
<content>Modality Age Optimal Cut</content>
<content>(years) Point</content>
<content> ---</content>
<content>Diagnosis (rule in HF) <50 450 pg/mL</content>
<content>50 - 75 900 pg/mL</content>
<content>>75 1800 pg/mL</content>
<content> Exclusion (rule out HF) Age independent 300 pg/mL</content>
<content></content> Magnesium [Mass/volume] in Serum or Plasma 2.6 mg/dL 1.6-2.3 [facility] ([facility]) Laboratory test finding (navigational concept) Laboratory test result [facility] ([facility]) ID Date Data Source [id number] 01/19/2020 08:06:00 AM EDT [facility] Name Value Range Interpretation Code Description Data Janette rce(s) Supporting Document(s) Magnesium 2.6 mg/dL 1.6-2.3 Above high normal [facility] ID Date Data Source [id number] 01/20/2020 06:05:00 AM EDT [facility] Name Value Range Interpretation Code Description Data Janette rce(s) Supporting Document(s) NT-proBNP 851 pg/mL 0-486 Above high normal [facility] The following cut-points have been suggested for the use of proBNP for the diagnostic evaluation of heart failure (HF) in patients with acute dyspnea: Modality Age Optimal Cut (years) Point Diagnosis (rule in HF) <50 450 pg/mL 50 - 75 900 pg/mL > 75 1800 pg/mL Exclusion (rule out HF) Age independent 300 pg/mL ID Date Data Source [id number] 01/13/2020 05:56:00 PM EDT [facility] ([facility] Name Value Range Interpretation Code Description Data Janette rce(s) Supporting Document(s) Triglycerides 114 [facility] ([facility]) Cholesterol 155 [facility] ([facility]) HDL 42 [facility] Cholesterol in LDL [Mass/volume] in Serum or Plasma by calculation 90 [facility] ([facility]) Chol/HDL Ratio 3.690 [facility] ([facility]) ID Date Data Source [id number] 01/13/2020 05:56:00 PM EDT [facility] ([facility]) Name Value Range Interpretation Code Description Data Janette rce(s) Supporting Document(s) Albumin [Mass/volume] in Serum or Plasma 3.9 [facility] ([facility]) Alanine aminotransferase [Enzymatic activity/volume] in Serum or Pl asma 31 [facility] ([facility]) Calcium [Mass/volume] in Serum or Plasma 9.4 [facility] ([facility]) Chloride [Moles/volume] in Serum or Plasma 102 [facility] ([facility]) Carbon dioxide, total [Moles/volume] in Serum or Plasma 29 [facility] Potassium [Moles/volume] in Serum or Plasma 4.3 [facility] ([facility]) Alkaline phosphatase [Enzymatic activity/volume] in Serum or Plasma 1 07 [facility] ([facility]) Protein [Mass/volume] in Serum or Plasma 7.8 [facility] ([facility]) Sodium 137 [facility] Aspartate aminotransferase [Enzymatic activity/volume] in Serum or Plasma 18 [facility] ([facility]) Glucose 89 83-110 [facility] Urea nitrogen [Mass/volume] in Serum or Plasma 28 [facility] ([facility]) Creatinine For GFR 1.26 [facility] ([facility] ID Date Data Source [id number] 11/08/2019 05:50:00 PM EST [facility] ([facility] Name Value Range Interpretation Code Description Data Janette rce(s) Supporting Document(s) Platelets 217 172-450 [facility] White Blood Count 5.0 4..0-10.0 [facility] ([facility]) Hemoglobin 12.6 [facility] ([facility]) Red Blood Count 3.96 4.30-6.10 [facility] ([facility]) Hematocrit 38.4 [facility] ([facility]) Procedure Social History Code Duration Value Status Description Data Source(s ) Smoking 07/12/2020 12:00:00 AM EST Current Smoker completed Curre nt Smoker eCW1 ([facility]) Smoking 07/12/2020 12:00:00 AM EST Current Smoker completed Curre nt Smoker eCW1 ([facility]) Smoking 07/12/2020 12:00:00 AM EST Current Smoker completed Curre nt Smoker eCW1 ([facility]) Smoking 07/12/2020 12:00:00 AM EST Current Smoker completed Curre nt Smoker eCW1 ([facility]) Smoking 07/12/2020 12:00:00 AM EST Current Smoker completed Curre nt Smoker eCW1 ([facility]) Smoking 06/12/2020 12:00:00 AM EDT Current Smoker completed Curre nt Smoker eCW1 ([facility]) Smoking 06/12/2020 12:00:00 AM EDT Current Smoker completed Curre nt Smoker eCW1 ([facility]) Smoking 03/08/2020 12:00:00 AM EDT Current Smoker completed Curre nt Smoker eCW1 ([facility]) Smoking 02/07/2020 12:00:00 AM EDT Current Smoker completed Curre nt Smoker eCW1 ([facility]) Vital Signs ID Date Data Source UNK Name Value Range Interpretation Code Description Data Source(s) Body surface area Derived from formula 2.31 m2 2.31 m2 [facility] ([facility]) Body weight 117.936 kg 117.936 kg [facility] ([facility]) [place] body weight 160 [lb_av] 160 [lb_av] MEDEN T ([facility]) Body mass index (BMI) [Ratio] 38.4 kg/m2 38.4 k g/m2 [facility] ([facility]) Body weight 260.00 [lb_av] 260.00 [lb_av] MEDEN T ([facility]) Body height 69 [in_i] 69 [in_i] [facility] ([facility]) 5'9" Diastolic blood pressure 80 mm[Hg] 80 mm[Hg] [facility] ([facility]) Systolic blood pressure 130 mm[Hg] 130 mm[Hg] [facility] Body surface area Derived from formula 2.29 m2 2.29 m2 [facility] ([facility]) Body weight 115.214 kg 115.214 kg [facility] ([facility]) [place] body weight 160 [lb_av] 160 [lb_av] MEDEN T ([facility]) Body mass index (BMI) [Ratio] 37.5 kg/m2 37.5 k g/m2 [facility] ([facility]) Body weight 254.00 [lb_av] 254.00 [lb_av] MEDEN T ([facility]) Body height 69 [in_i] 69 [in_i] [facility] ([facility]) 5'9" Body temperature 97.5 [degF] 97.5 [degF] [facility] Oxygen saturation in Arterial blood by Pulse oximetry 97 % 97 % [facility], [facility] Heart rate 74 /min 74 /min [facility] ([facility], ) Diastolic blood pressure 85 mm[Hg] 85 mm[Hg] MEDENT ([facility], ) Systolic blood pressure 152 mm[Hg] 152 mm[Hg] M EDENT ([facility], ) Diastolic blood pressure--supine 82 mm[Hg] 82 mm[Hg] MED[facility] ([facility]) Ra, large cuff Systolic blood pressure--supine 130 mm[Hg] 130 mm[Hg] MED[facility] ([facility]) Ra, large cuff Diastolic blood pressure--sitting 80 mm[Hg] 80 mm[Hg] MED[facility] ([facility]) Ra, large cuff Systolic blood pressure--sitting 128 mm[Hg] 128 mm[Hg] MED[facility] ([facility]) Ra, large cuff Respiratory rate 17 /min 17 /min MEDENT ( [facility]) non-labored Heart rate 68 /min 68 /min [facility] ([facility]) regular Body mass index (BMI) [Ratio] 37.1 kg/m2 37.1 k g/m2 MED[facility] ([facility]) Body height 69 [in_i] 69 [in_i] [facility] ([facility]) 5'9" Body weight 251.00 [lb_av] 251.00 [lb_av] MEDEN T ([facility]) [place] body weight 160 [lb_av] 160 [lb_av] MEDEN T ([facility], ) Body height 69 [in_i] 69 [in_i] MEDENT ([facility], ) 5'9" Oxygen saturation in Arterial blood by Pulse oximetry 92 % 92 % [facility] ([facility], ) Heart rate 72 /min 72 /min MED[facility] ([facility], ) Diastolic blood pressure 68 mm[Hg] 68 mm[Hg] [facility] ([facility]) Systolic blood pressure 142 mm[Hg] 142 mm[Hg] [facility] Body weight 116.122 kg 116.122 kg [facility] ([facility]) [place] body weight 160 [lb_av] 160 [lb_av] [facility] Body mass index (BMI) [Ratio] 37.8 kg/m2 37.8 k g/m2 [facility] ([facility]) Body weight 256.00 [lb_av] 256.00 [lb_av] [facility] Body height 69 [in_i] 69 [in_i] [facility] ([facility]) 5'9" Diastolic blood pressure 76 mm[Hg] 76 mm[Hg] [facility] ([facility]) Systolic blood pressure 148 mm[Hg] 148 mm[Hg] M COUNT INCLUDES THE [facility] ([facility]) Diastolic blood pressure 78 mm[Hg] 78 mm[Hg] eCW1 ([facility]) Systolic blood pressure 132 mm[Hg] 132 mm[Hg] e CW1 ([facility]) Body temperature 97.8 [degF] 97.8 [degF] eCW1 ( [facility]) Respiratory rate 18 /min 18 /min eCW1 ([facility]) Heart rate 78 /min 78 /min eCW1 ([facility]) Body mass index (BMI) [Ratio] 34.96 kg/m2 34.96 kg/m2 eCW1 ([facility]) Body height [in_i] eCW1 ([facility]) Body weight 257.8 [lb_av] 257.8 [lb_av] eCW1 ([facility], 1928[facility]) Diastolic blood pressure 84 mm[Hg] 84 mm[Hg] eCW1 ([facility]) Systolic blood pressure 128 mm[Hg] 128 mm[Hg] e CW1 ([facility]) Body temperature 97.1 [degF] 97.1 [degF] eCW1 ( [facility]) Respiratory rate 18 /min 18 /min eCW1 ([facility]) Heart rate 78 /min 78 /min eCW1 ([facility]) Body mass index (BMI) [Ratio] 34.82 kg/m2 34.82 kg/m2 eCW1 ([facility]) Body height [in_i] eCW1 ([facility]) Body weight 256.8 [lb_av] 256.8 [lb_av] eCW1 ([facility], [facility]) Diastolic blood pressure--sitting 90 mm[Hg] 90 mm[Hg] MEDENT ([facility]) Systolic blood pressure--sitting 150 mm[Hg] 150 mm[Hg] [facility] ([facility]) Body mass index (BMI) [Ratio] 37.4 kg/m2 37.4 k g/m2 [facility] ([facility]) Body height 69 [in_i] 69 [in_i] [facility] 5'9" Body weight 253.00 [lb_av] 253.00 [lb_av] MEDEN T ([facility]) Body weight 116.802 kg 116.802 kg [facility], ) Body mass index (BMI) [Ratio] 38.0 kg/m2 38.0 k g/m2 MEDENT ([facility], ) Body weight 257.50 [lb_av] 257.50 [lb_av] MEDEN T ([facility], ) Body height 69 [in_i] 69 [in_i] MEDENT ([facility], ) 5'9" Body temperature 97.7 [degF] 97.7 [degF] [facility] ([facility], ) Oxygen saturation in Arterial blood by Pulse oximetry 98 % 98 % [facility], ) Heart rate 79 /min 79 /min [facility], ) Diastolic blood pressure 84 mm[Hg] 84 mm[Hg] MEDENT ([facility], ) Systolic blood pressure 146 mm[Hg] 146 mm[Hg] M EDENT ([facility], ) Diastolic blood pressure 78 mm[Hg] 78 mm[Hg] eCW1 ([facility]) Systolic blood pressure 130 mm[Hg] 130 mm[Hg] e CW1 ([facility]) Body temperature 98.2 [degF] 98.2 [degF] eCW1 ( [facility]) Respiratory rate 22 /min 22 /min eCW1 ([facility]) Heart rate 106 /min 106 /min eCW1 ([facility]) Body mass index (BMI) [Ratio] 34.20 kg/m2 34.20 kg/m2 eCW1 ([facility]) Body height [in_i] eCW1 ([facility]) Body weight 252.2 [lb_av] 252.2 [lb_av] eCW1 ([facility], [facility]) Diastolic blood pressure 84 mm[Hg] 84 mm[Hg] eCW1 ([facility]) Systolic blood pressure 144 mm[Hg] 144 mm[Hg] e CW1 ([facility]) Body temperature 97.3 [degF] 97.3 [degF] eCW1 ( [facility]) Respiratory rate 22 /min 22 /min eCW1 ([facility]) Heart rate 91 /min 91 /min eCW1 ([facility]) Body mass index (BMI) [Ratio] 34.72 kg/m2 34.72 kg/m2 eCW1 ([facility]) Body height [in_i] eCW1 ([facility]) Body weight 256 [lb_av] 256 [lb_av] eCW1 ([facility]) Diastolic blood pressure--sitting 84 mm[Hg] 84 mm[Hg] MEDENT ([facility]) CBP adult cuff, [place] Systolic blood pressure--sitting 158 mm[Hg] 158 mm[Hg] MED[facility] ([facility]) CBP adult cuff, [place] Heart rate 59 /min 59 /min [facility] ([facility]) Body mass index (BMI) [Ratio] 38.4 kg/m2 38.4 k g/m2 MED[facility] ([facility]) Body height 69 [in_i] 69 [in_i] [facility] ([facility] 5'9" Body weight 260.00 [lb_av] 260.00 [lb_av] MEDEN T ([facility]) Respiratory rate 20 /min 20 /min eCW1 ([facility]) Heart rate 95 /min 95 /min eCW1 ([facility]) Body mass index (BMI) [Ratio] 35.15 kg/m2 35.15 kg/m2 eCW1 ([facility]) Body height [in_us] eCW1 ([facility]) Body weight Measured 259.2 [lb_av] 259.2 [lb_av ] eCW1 ([facility]) Diastolic blood pressure 80 mm[Hg] 80 mm[Hg] eCW1 ([facility]) Systolic blood pressure 138 mm[Hg] 138 mm[Hg] e CW1 ([facility]) Body temperature 96.6 [degF] 96.6 [degF] eCW1 ( [facility]) Diastolic blood pressure 84 mm[Hg] 84 mm[Hg] eCW1 ([facility]) Systolic blood pressure 154 mm[Hg] 154 mm[Hg] e CW1 ([facility]) Body temperature 97.1 [degF] 97.1 [degF] eCW1 ( [facility]) Respiratory rate 20 /min 20 /min eCW1 ([facility]) Heart rate 80 /min 80 /min eCW1 ([facility]) Body mass index (BMI) [Ratio] 35.67 kg/m2 35.67 kg/m2 eCW1 ([facility]) Body height [in_us] eCW1 ([facility]) Body weight Measured 263 [lb_av] 263 [lb_av] eC W1 ([facility]) Diastolic blood pressure 62 mm[Hg] 62 mm[Hg] eCW1 ([facility]) Systolic blood pressure 140 mm[Hg] 140 mm[Hg] e CW1 ([facility]) Body temperature 97.1 [degF] 97.1 [degF] eCW1 ( [facility]) Respiratory rate 18 /min 18 /min eCW1 ([facility]) Heart rate 98 /min 98 /min eCW1 ([facility]) Body mass index (BMI) [Ratio] 34.85 kg/m2 34.85 kg/m2 eCW1 ([facility]) Body height [in_us] eCW1 ([facility]) Body weight Measured 257 [lb_av] 257 [lb_av] eC W1 ([facility]) Diastolic blood pressure 82 mm[Hg] 82 mm[Hg] eCW1 ([facility]) Systolic blood pressure 140 mm[Hg] 140 mm[Hg] e CW1 ([facility]) Body temperature 97.1 [degF] 97.1 [degF] eCW1 ( [facility]) Respiratory rate 20 /min 20 /min eCW1 ([facility]) Heart rate 101 /min 101 /min eCW1 ([facility]) Body mass index (BMI) [Ratio] 34.80 kg/m2 34.80 kg/m2 eCW1 ([facility]) Body height [in_us] eCW1 ([facility]) Body weight Measured 256.6 [lb_av] 256.6 [lb_av ] eCW1 ([facility]) Patient Treatment Plan of Care Planned Activity Planned Date Details Description Data Source (s) Albuterol Sulfate HFA 108 (90 Base) MCG/ACT 02/02/2020 12:00:00 AM EDT eCW1 ([facility]) Pocket Spacer - 02/02/2020 12:00:00 AM EDT eCW1 ([facility]) Furosemide 20 MG Oral Tablet 01/06/2020 12:00:00 AM EDT eCW1 ([facility]) atorvastatin 20 MG Oral Tablet 11/18/2019 12:00:00 AM EDT eCW1 ([facility]) Nicotine 4 MG Chewing Gum [Nicorette] 11/18/2019 12:00:00 AM EDT eCW1 ([facility]) atorvastatin 20 MG Oral Tablet 11/18/2019 12:00:00 AM EDT eCW1 ([facility]) Nicotine 4 MG Chewing Gum [Nicorette] 11/18/2019 12:00:00 AM EDT eCW1 ([facility]) atorvastatin 20 MG Oral Tablet 11/18/2019 12:00:00 AM EDT eCW1 ([facility])
[2020-10-18] MEDS ORDERED: NS 1,000 ML IV ONE (07:00)
[2020-10-18] MEDS ORDERED: propofoL 200 MG/20 ML VIAL As Ordered ONE ×4 (07:28→09:24)
[2020-10-18] MEDS ORDERED: LIDOCAINE 2% 100MG/5ML SDV (FOR ANES.) As Ordered ONE (07:28)
--- NOTE | 2020-10-18 09:34 | ROOR ---
Patient Name: Flex Talavera Procedure Date: 10/18/2020 8:19 AM Date of : 1945 Age: 75 Room: [facility] Gender: Male Note Status: Finalized Procedure: Colonoscopy Indications: High risk colon cancer surveillance: Personal history of colonic polyps, High risk colon cancer surveillance: Personal history of colon cancer, reexamine and chris prior malignant polyp excision site at rectosigmoid junction Providers: Tyrell Cesar MD Referring MD: Eduarda GOLDBERG DO Requesting Provider: Medicines: Monitored Anesthesia Care Complications: No immediate complications. Procedure: Pre-Anesthesia Assessment: - Prior to the procedure, a History and Physical was performed, and patient medications and allergies were reviewed. The patient is competent. The risks and benefits of the procedure and the sedation options and risks were discussed with the patient. All questions were answered and informed consent was obtained. Patient identification and proposed procedure were verified by the physician, the nurse and the acid plant helper in the endoscopy suite. Mental Status Examination: alert and oriented. Airway Examination: normal oropharyngeal airway and neck mobility. Respiratory Examination: clear to auscultation. CV Examination: normal. Prophylactic Antibiotics: The patient does not require prophylactic antibiotics. Prior Anticoagulants: The patient has taken no previous anticoagulant or antiplatelet agents except for aspirin. ASA Grade Assessment: III - A patient with severe systemic disease. After reviewing the risks and benefits, the patient was deemed in satisfactory condition to undergo the procedure. The anesthesia plan was to use monitored anesthesia care (MAC). Immediately prior to administration of medications, the patient was re-assessed for adequacy to receive sedatives. The heart rate, respiratory rate, oxygen saturations, blood pressure, adequacy of pulmonary ventilation, and response to care were monitored throughout the procedure. The physical status of the patient was re-assessed after the procedure. The Colonoscope was introduced through the anus and advanced to the cecum, identified by appendiceal orifice and ileocecal valve. The colonoscopy was technically difficult and complex. The patient tolerated the procedure well. The quality of the bowel preparation was good. Findings: The perianal and digital rectal examinations were normal. Two flat polyps were found in the transverse colon. The polyps were 2 to 10 mm in size. These polyps were removed with a hot snare. Resection and retrieval were complete. small polyp taken with forceps Two sessile polyps were found in the descending colon. The polyps were 2 to 5 mm in size. These polyps were removed with a hot snare. Resection and retrieval were complete. Estimated blood loss was minimal. Five sessile polyps were found in the rectum and recto-sigmoid colon. The polyps were 2 to 5 mm in size. These polyps were removed with a hot snare. Resection and retrieval were complete. Non-bleeding internal hemorrhoids were found during retroflexion. The hemorrhoids were Grade II (internal hemorrhoids that prolapse but reduce spontaneously). prior polyp excision site at rectosigmoid junction not found Impression: - Two 2 to 10 mm polyps in the transverse colon, removed with a hot snare. Resected and retrieved. - Two 2 to 5 mm polyps in the descending colon, removed with a hot snare. Resected and retrieved. - Five 2 to 5 mm polyps in the rectum and at the recto-sigmoid colon, removed with a hot snare. Resected and retrieved. - Non-bleeding internal hemorrhoids. Recommendation: - Repeat colonoscopy in 1 year for surveillance. - Telephone my office for pathology results in 1 week. Procedure Code(s): --- Professional --- 62099, Colonoscopy, flexible; with removal of tumor(s), polyp(s), or other lesion(s) by snare technique Diagnosis Code(s): --- Professional --- Z86.010, Personal history of colonic polyps Z85.038, Personal history of other malignant neoplasm of large intestine K62.1, Rectal polyp K63.5, Polyp of colon K64.1, Second degree hemorrhoids CPT copyright 2019 [employer]. All rights reserved. The codes documented in this report are preliminary and upon drywall finishing foreman review may be revised to meet current compliance requirements. Tyrell Cesar MD Tyrell Cesar MD 10/18/2020 9:33:52 AM Electronically signed by Tyrell Cesar MD Number of Addenda: 0 Note Initiated On: 10/18/2020 8:19 AM Estimated Blood Loss: Estimated blood loss was minimal.
[2020-10-18] MEDS ORDERED: ALBUTEROL SULFATE 2.5 MG/0.5 ML INH NEB SOLN As Ordered ONE (10:07)
[2020-10-18] MEDS ORDERED: ALBUTEROL SULFATE 2.5 MG/0.5 ML INH NEB SOLN INH STA (10:14)
[2020-10-18 10:34] VITALS: BP 123/60
== END 2020-10-18 10:30 | disposition home or self-care (01) ==
LOC: M OPP 06:35
PROVIDERS: ATTEND Surgery
DX: Z12.11 Encounter for screening for malignant neoplasm of colon (principal); Z86.010 Personal history of colon polyps; Z85.038 Personal history of other malignant neoplasm of large intestine; K63.5 Polyp of colon; K64.1 Second degree hemorrhoids; I10 Essential (primary) hypertension; E78.5 Hyperlipidemia, unspecified; R60.0 Localized edema; R12 Heartburn; M19.90 Unspecified osteoarthritis, unspecified site; J45.909 Unspecified asthma, uncomplicated; G47.30 Sleep apnea, unspecified; F17.210 Nicotine dependence, cigarettes, uncomplicated; Z86.73 Personal history of transient ischemic attack (TIA), and cerebral infarction without residual deficits; Z79.82 Long term (current) use of aspirin; Z79.899 Other long term (current) drug therapy

== ENCOUNTER → 2020-11-24 | Outpatient (CLI) | payer MEDICARE ==
[~2020-11-24] MED LIST changes: -PEG1POW PO; +POLY17PO18 PO
--- NOTE | 2020-11-24 12:19 | REP ---
INDICATION: SOB. COMPARISON: 11/18/2019. TECHNIQUE: Upright PA and lateral chest. FINDINGS: The lung guzman are clear. Cardiac size is normal. The lydia, mediastinum and skeletal structures are unchanged. There are old posttraumatic changes in the left hemithorax, unchanged. IMPRESSION: Essentially negative PA and lateral chest <Electronically signed by Vern Joseph > 11/24/20 [id number]
== END ==
LOC: M ADAMS 11:20
PROVIDERS: ATTEND Physician Assistant
DX: R06.02 Shortness of breath (principal)

== ENCOUNTER → 2021-01-19 | Outpatient (CLI) | payer MEDICARE ==
[~2021-01-19] MED LIST changes: +ADVA230A INH
--- NOTE | 2021-01-19 16:32 | REP ---
INDICATION: SOB COMPARISON: 11/24/2020. TECHNIQUE: PA/Lateral FINDINGS: There is stable pleural and parenchymal fibrosis in the left base. There is no evidence of acute infiltrate. There is stable mild elevation of the left hemidiaphragm. There are multiple old left rib fractures again noted. The heart is not significantly enlarged. There is mild calcification and tortuosity of the thoracic aorta. The mediastinal silhouette is unchanged. There are degenerative changes of the spine without compression deformity. IMPRESSION: No acute pulmonary disease. Stable chronic changes as above. <Electronically signed by Vern Krueger > 01/19/21 [id number]
[2021-01-19 17:23] LABS: CALCIUM LEVEL 8.6 MG/DL (8.8-10.2); CHOLESTEROL RISK RATIO 3.225 (<5); CREATININE FOR GFR 1.38 MG/DL (0.70-1.30); GLOMERULAR FILTRATION RATE 53.3 (>42); POTASSIUM SERUM 4.8 MEQ/L (3.5-5.1)
== END ==
LOC: M ADAMS 13:24
PROVIDERS: ATTEND Physician Assistant
DX: R06.02 Shortness of breath (principal); E78.00 Pure hypercholesterolemia, unspecified; I10 Essential (primary) hypertension

== ENCOUNTER → 2021-02-20 | Outpatient (CLI) | payer MEDICARE ==
[~2021-02-20] MED LIST changes: +NITR0.4S14
--- NOTE | 2021-02-20 16:51 | REP ---
INDICATION: URINARY HESITANCY. COMPARISON: None. TECHNIQUE: Transvesical evaluation FINDINGS: No large bladder mass or significant mucosal abnormality was noted. The pre void urinary bladder volume calculation is 552 cc and the postvoid volume calculation is 133 cc. This renders a 24% postvoid residual. IMPRESSION: As above <Electronically signed by Binh Hernandez > 02/20/21 0187
== END ==
LOC: M RAD 15:51
PROVIDERS: ATTEND Family Medicine
DX: R39.11 Hesitancy of micturition (principal)

== ENCOUNTER → 2021-02-21 | Outpatient (REF) | payer MEDICARE ==
[2021-02-21 19:39] LABS: CALCIUM LEVEL 8.9 MG/DL (8.8-10.2); CREATININE FOR GFR 1.58 MG/DL (0.70-1.30); GLOMERULAR FILTRATION RATE 45.6 (>42); POTASSIUM SERUM 5.2 MEQ/L (3.5-5.1)
== END ==
LOC: M LABDRWAD 18:54
PROVIDERS: ATTEND Physician Assistant
DX: R06.02 Shortness of breath (principal)

== ENCOUNTER → 2021-02-21 | Outpatient (CLI) | payer MEDICARE ==
--- NOTE | 2021-02-21 16:19 | REP ---
INDICATION: SOB. COMPARISON: Multiple the latest 01/19/2021 TECHNIQUE: PA and lateral FINDINGS: Cardiomediastinal silhouette lung guzman are unchanged. Chronic basilar changes left lower lobe status quo. No acute patchy parenchymal opacities or pleural effusions have developed. There is no change in the osseous structures. IMPRESSION: Stable appearing chronic changes. <Electronically signed by Binh Hernandez > 02/21/21 [id number]
== END ==
LOC: M ADAMS 15:41
PROVIDERS: ATTEND Physician Assistant
DX: R06.02 Shortness of breath (principal)

== ENCOUNTER 2021-02-22 11:10 | Emergency (ER) | payer MEDICARE ==
[~2021-02-22] VITALS: Ht 175.3 cm; Wt 114.1 kg
[~2021-02-22 11:10] MED LIST changes: -NITR0.4S14
[2021-02-22] MEDS ORDERED: NITR0.4S14 (11:27)
[2021-02-22] MEDS ORDERED: NITROGLYCERIN 2% OINT 1 GM *U/D* PKT TOP ONE (11:50)
[2021-02-22 11:51] LABS: BASO % 0.2 % (0.0-1.0); EOS % 0.4 % (0.0-3.0); HEMATOCRIT 30.2 % (42.0-52.0); HEMOGLOBIN 9.3 g/dl (13.5-17.5); LYMPH # 0.9 10^3/uL (1.5-5.0); LYMPH % 20.6 % (24.0-44.0); MEAN CORPUSCULAR HEMOGLOBIN 33.6 pg (27.0-33.0); MEAN CORPUSCULAR HGB CONC 30.8 g/dl (32.0-36.5); MONO # 0.5 10^3/uL (0.0-0.8); MONO % 11.4 % (2.0-8.0); NEUTROPHILS % 65.4 % (36.0-66.0); PLATELET COUNT, AUTOMATED 127 10^3/uL (150-450); RED BLOOD COUNT 2.77 10^6/uL (4.30-6.10); WHITE BLOOD COUNT 4.6 10^3/uL (4.0-10.0)
[2021-02-22 11:55] VITALS: BP 151/67
[2021-02-22 12:25] LABS: ALBUMIN 4.1 GM/DL (3.2-5.2); BILIRUBIN,DIRECT 0.2 MG/DL (0.0-0.2); BILIRUBIN,TOTAL 0.7 MG/DL (0.2-1.0); CALCIUM LEVEL 8.9 MG/DL (8.8-10.2); CREATININE FOR GFR 1.47 MG/DL (0.70-1.30); GLOMERULAR FILTRATION RATE 49.6 (>42); THYROID STIMULATING HORMONE 1.17 uIU/ML (0.358-3.740); TOTAL PROTEIN 7.7 GM/DL (6.4-8.2)
--- NOTE | 2021-02-22 12:41 | REP ---
INDICATION: CHEST PAIN. COMPARISON: 05/10/2020. TECHNIQUE: Single portable AP view of the chest was performed. FINDINGS: Stable pleural and parenchymal fibrotic changes are again noted in the left lung base, with mild elevation of left hemidiaphragm. Old left rib fractures are also again noted. No superimposed acute infiltrate is present. The heart does not appear to be significantly enlarged. There is calcification of the thoracic aorta. The mediastinal silhouette is unchanged. IMPRESSION: No acute pulmonary disease.Stable chronic findings. <Electronically signed by Vern Krueger > 02/22/21 0497
[2021-02-22] MEDS ORDERED: ASPIRIN 81 MG CHEW TABLET PO ONE (13:15)
[2021-02-22] MEDS ORDERED: HEPARIN SOD (PORCINE) 5000UNITS/ML 1ML VIAL/SYRINGE IV ONE (13:20)
[2021-02-22] MEDS ORDERED: HEPARIN DRIP 25,000 UNITS in IV 1 EA IV SCH (13:20)
[2021-02-22 14:00] LABS: RSV AMPLIFICATION NEGATIVE (NEGATIVE)
[2021-02-22] MEDS ORDERED: CLOPIDOGREL 300 MG TAB (PLAVIX) PO ONE (14:00)
[2021-02-22] MEDS ORDERED: NITROGLYCERIN 0.4 MG SUBL TABLET SL PRN (18:25)
[2021-02-22 18:45] VITALS: BP 149/69
--- NOTE | 2021-02-22 21:25 | ECGEPIP ---
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
== END 2021-02-22 19:08 | disposition short-term general hospital (02) ==
LOC: M ED 11:10
DX: I24.9 Acute ischemic heart disease, unspecified (principal); I11.0 Hypertensive heart disease with heart failure; J45.909 Unspecified asthma, uncomplicated; Z86.73 Personal history of transient ischemic attack (TIA), and cerebral infarction without residual deficits; F17.200 Nicotine dependence, unspecified, uncomplicated; Z79.899 Other long term (current) drug therapy
CPT/HCPCS: 36415; 71045; 80047; 80048; 80076; 83690; 83880; 84443; 84484; 85025; 87631; 93005; 93041; 94760; 99285; J1644

== ENCOUNTER → 2021-03-26 | Outpatient (CLI) | payer MEDICARE ==
[~2021-03-26] MED LIST changes: +ISOVUE-300 61% 50ML VIAL As Ordered ONE; +LIDOCAINE 1% MDV 20ML VIAL As Ordered ONE; +NITR0.4S14; +methylPREDNISolone SUSP 40MG/ML 1ML VIAL (DEPO MEDROL) As Ordered ONE
--- NOTE | 2021-03-26 13:35 | REP ---
INDICATION: PAIN RT LEG. Claudication COMPARISON: None TECHNIQUE: Real time hennessy scale and Duplex Doppler evaluation of the right lower extremity arterial vasculature using linear high frequency transducer. FINDINGS: The ankle to brachial index of the right lower extremity is 0.8. Duplex doppler interrogation demonstrates normal triphasic wave patterns and normal flow velocity in the common femoral artery. Biphasic waves are noted from profundal through a distal EMMETT. The distal SYRUP MAKER COOK shows monophasic waves. The large amount of plaque scattered. Monophasic flow only in the distal right SYRUP MAKER COOK. Incidentally noted is an irregular heart rhythm on Doppler tracing PSV(cm/sec) Common femoral artery: 189 cm/s Profunda femoris artery: 184 cm/s Proximal superficial femoral artery: 215 cm/s Mid superficial femoral artery: 128 cm/s Distal superficial femoral artery: 112 cm/s Popliteal artery: 108 cm/s Proximal EMMETT: 79 cm/s Tibioperoneal trunk: 61 cm/s Proximal SYRUP MAKER COOK: 69 cm/s Distal SYRUP MAKER COOK: 25.5 cm/s Distal EMMETT: 50 cm/s IMPRESSION: Right lower extremity shows atherosclerotic plaque throughout and flow is restricted most significantly at the distal posterior tibial artery. Remainder of velocities from the common femoral artery through popliteal artery were adequate with triphasic or biphasic flow. Calf vessels with somewhat lesser velocity and flow. <Electronically signed by Prieto Alford > 03/26/21 [id number]
== END ==
LOC: M RAD 12:24
PROVIDERS: ATTEND Physician Assistant
DX: M79.604 Pain in right leg (principal)
CPT/HCPCS: 93926; J1030; Q9967

== ENCOUNTER → 2021-04-06 | Outpatient (CLI) | payer MEDICARE ==
[~2021-04-06] MED LIST changes: +ALBU83IN; +CLOP75TA2; -ISOVUE-300 61% 50ML VIAL As Ordered ONE; -LIDOCAINE 1% MDV 20ML VIAL As Ordered ONE; +PRED10TA2; -methylPREDNISolone SUSP 40MG/ML 1ML VIAL (DEPO MEDROL) As Ordered ONE
--- NOTE | 2021-04-09 18:39 | SLEEPCENT ---
DATE: 04/06/2021 ORDERED BY: MARISELA Limon Nocturnal polysomnography was performed for evaluation of sleep physiology in this patient with a history of snoring and irregular breathing in sleep. Eight hours and 18 minutes of data were reviewed. There were only 180 minutes of sleep identified. Sleep latency was mildly prolonged at 48 minutes. REM latency was mildly prolonged at 140 minutes. Sleep architecture showed poor progression. A prolonged period of wake between 1:30 and 3:30 resulted in reduced sleep efficiency of 36.7%. There were two REM cycles noted. The patient's electrocardiogram showed a sinus rhythm with PVCs. Average heart rate of 68 beats per minute. EEG showed coarsening in background, otherwise normal waveforms for wake and sleep. There were 83 respiratory events identified of 10 seconds in duration or greater for an apnea-hypopnea index of 27.7. The events were obstructive, not exclusive to sleep stage, more frequent in the supine posture. Arousals from respiratory events occurred 12.7 times per hour, and oxygen desaturations were seen into the low 80s. There was some limb activity in the EMG leads. Two trains of 30 events. Limb movement arousal index 7.3. IMPRESSION: Obstructive sleep apnea syndrome (G47.33). Apnea-hypopnea index 27.7. RECOMMENDATION: The patient should be encouraged to return to [facility] for [facility]. In the interim, alcohol and sedative avoidance should be practiced and caution exercised during the operation of motor vehicles. cc: RAMONE GREEN M.D.
== END ==
LOC: M SLEEP 20:00
PROVIDERS: ATTEND Nurse Practitioner Family
DX: G47.33 Obstructive sleep apnea (adult) (pediatric) (principal)

== ENCOUNTER → 2021-04-27 | Outpatient (CLI) | payer MEDICARE ==
[~2021-04-27] MED LIST changes: -ALBU83IN; +ALBU83IN NEB; +AMOX875T PO; +FLON1SPR NARES; +META28.32 PO; +MILKSUS3 PO; -NITR0.4S14; +NITR0.4S14 SL; +TORS20TA2 PO
--- NOTE | 2021-05-06 18:50 | SLEEPCENT ---
DATE: 04/27/2021 ORDERED BY: MARISELA Limon Nocturnal polysomnography was performed for the titration of pressure therapy in this patient with obstructive sleep apnea syndrome, apnea-hypopnea index of 27.7. For testing a ResMed Quattro full face mask was used, 4 cm of water pressure were applied to the circuit, and the lights were extinguished. Eight hours and 15 minutes of data were reviewed. There were 323 minutes of sleep identified. Sleep latency was normal at 30.5 minutes. REM sleep was delayed at 268 minutes. Sleep architecture showed poor progression. There was only one brief REM cycle noted. Overall sleep efficiency was 65.9%. The electrocardiogram showed a sinus rhythm with an average heart rate of 66 beats per minute. PVCs were noted over the course of the study. EEG showed reasonably normal waveforms for wake and sleep. CPAP at a pressure +10 was sufficient to palliate the patient's obstructive respiratory events. There was some persistent limb activity noted in the EMG leads. Limb movement arousal index on this occasion was 7.2. IMPRESSION: Obstructive sleep apnea syndrome (G47.33). RECOMMENDATION: Nightly use of pressure therapy 10 cm of water. cc: RAMONE GREEN M.D.
== END ==
LOC: M SLEEP 19:50
PROVIDERS: ATTEND Nurse Practitioner Family
DX: G47.33 Obstructive sleep apnea (adult) (pediatric) (principal)

== ENCOUNTER 2021-04-29 16:01 | Inpatient (IN) | payer MEDICARE ==
[~2021-04-29] VITALS: Ht 175.3 cm; Wt 113.6 kg
[~2021-04-29 16:01] MED LIST changes: -AMOX875T PO; -FLON1SPR NARES; -META28.32 PO; -MILKSUS3 PO; -TORS20TA2 PO
[2021-04-29] MEDS ORDERED: ACETAMINOPHEN 325 MG TAB PO ONE (16:20)
--- NOTE | 2021-04-29 16:55 | REP ---
INDICATION: Coronavirus workup COMPARISON: 02/22/2021 TECHNIQUE: Portable AP view of the chest FINDINGS: The mediastinum and cardiac silhouette are stable and cardiomegaly is again suggested. The lung guzman demonstrate chronic changes (left greater than right) without acute consolidation, effusion, or pneumothorax. Skeletal structures are intact. IMPRESSION: Chronic changes similar to prior examination. No acute cardiopulmonary process appreciated. <Electronically signed by Daniel Kruger > 04/29/21 [id number]
[2021-04-29 17:05] LABS: HEMATOCRIT 24.5 % (42.0-52.0); HEMOGLOBIN 7.8 g/dl (13.5-17.5); MEAN CORPUSCULAR HEMOGLOBIN 33.3 pg (27.0-33.0); MEAN CORPUSCULAR HGB CONC 31.8 g/dl (32.0-36.5); MEAN CORPUSCULAR VOLUME 104.7 fl (80.0-96.0); RED BLOOD COUNT 2.34 10^6/uL (4.30-6.10); WHITE BLOOD COUNT 3.4 10^3/uL (4.0-10.0)
[2021-04-29 17:10] LABS: INR 1.16; PROTHROMBIN TIME 15.2 SECONDS (12.7-14.5)
[2021-04-29 17:11] LABS: PARTIAL THROMBOPLASTIN TIME 39.7 SECONDS (25.9-37.0)
[2021-04-29 17:13] LABS: D-DIMER QUANT 911.58 ng/ml (<500)
[2021-04-29 17:27] LABS: ALBUMIN 3.5 GM/DL (3.2-5.2); ALT/SGPT 31 U/L (12-78); BILIRUBIN,TOTAL 1.3 MG/DL (0.2-1.0); BLOOD UREA NITROGEN 34 MG/DL (7-18); C REACTIVE PROTEIN QUANTITATIV 7.35 MG/DL (0.00-0.30); CALCIUM LEVEL 7.7 MG/DL (8.8-10.2); CARBON DIOXIDE LEVEL 24 MEQ/L (21-32); CHLORIDE LEVEL 103 MEQ/L (98-107); CK-MB VALUE MASS 2.1 NG/ML (<3.6); CPK CREATINE PHOSPHOKINASE 148 U/L (39-308); CREATININE FOR GFR 1.71 MG/DL (0.70-1.30); FERRITIN 1046 NG/ML (26-388); GLOMERULAR FILTRATION RATE 41.5 (>42); GLUCOSE, FASTING 108 MG/DL (70-100); LDH LACTATE DEHYDROGENASE 235 U/L (87-241); MAGNESIUM LEVEL 2.4 MG/DL (1.8-2.4); MB/CK RELATIVE INDEX 1.42 (< OR =4); SODIUM LEVEL 133 MEQ/L (136-145); TOTAL PROTEIN 7.1 GM/DL (6.4-8.2); TROPONIN I < 0.02 NG/ML (< 0.10)
[2021-04-29 17:33] LABS: RSV AMPLIFICATION NEGATIVE (NEGATIVE)
[2021-04-29 17:41] LABS: PLATELET COUNT, AUTOMATED 82 10^3/uL (150-450)
[2021-04-29 17:47] LABS: ANISOCYTOSIS 2+; LYMPHOCYTES 16 % (16-44); MONOCYTES 21 % (0-5); NEUTROPHILS 53 % (28-66); OVALOCYTES 1+; POIKILOCYTOSIS 1+
[2021-04-29 17:48] LABS: PLATELET ESTIMATE DECREASED (NORMAL); POLYCHROMASIA 1+
[2021-04-29] MEDS ORDERED: TORS20TA2 PO (19:20)
[2021-04-29] MEDS ORDERED: META28.32 PO (19:22)
[2021-04-29] MEDS ORDERED: MILKSUS3 PO (19:22)
[2021-04-29] MEDS ORDERED: MOM 30ML SUSPENSION UDC PO PRN (19:25)
[2021-04-29] MEDS ORDERED: HOME MED LIST COMPLETE! XX SCH (19:25)
[2021-04-29] MEDS ORDERED: NITROGLYCERIN 0.4 MG SUBL TABLET SL SCH (19:25)
--- NOTE | 2021-04-29 19:28 | ECGEPIP ---
[facility] - ED Test Date: 2021-04-29 Pat Name: FAITH FRANKLIN Department: Room: - Gender: Male Hospice Patient Care Secretary: NICK : 1945 Requested By: RAMONE ANTONIO Order Number: [id number] Reading MD: Judit Moreno Measurements Intervals [place]ora Rate: 85 P: 56 TX: 160 QRS: 12 QRSD: 70 T: 43 QT: 356 QTc: 423 Interpretive Statements Sinus rhythm with occasional premature ventricular complexes NSTTW abnormalities increased ectopy 02/22/21 Electronically Signed on 04-29-2021 19:27:47 EDT by Judit Moreno
[2021-04-29] MEDS: ADVAIR HFA 230/21MCG INHALER INH SCH (20:00)
--- NOTE | 2021-04-29 20:44 | REPVR ---
PROCEDURE INFORMATION: Exam: US Duplex Lower Extremity Veins, Bilateral Exam date and time: 04/29/2021 8:28 PM Age: 76 years old Clinical indication: Pain; Leg, lower; Bilateral; Additional info: Covid +, calf pain TECHNIQUE: Imaging protocol: Real-time duplex ultrasound of the extremities with 2-D hennessy scale, color Doppler flow and spectral waveform analysis with image documentation. Complete exam focused on the bilateral lower extremity veins. COMPARISON: US Duplex, Ext,LOWER veins,unilat 01/21/2019 3:29 PM FINDINGS: Right deep veins: Suboptimal visualization of the calf veins. The common femoral, femoral and popliteal veins are patent without thrombus. Normal Doppler waveforms. Normal compressibility and/or augmentation response. Right superficial veins: Saphenofemoral junction is patent without thrombus. Left deep veins: Suboptimal visualization of the calf veins. The common femoral, femoral and popliteal veins are patent without thrombus. Normal Doppler waveforms. Normal compressibility and/or augmentation response. Left superficial veins: Saphenofemoral junction is patent without thrombus. Soft tissues: Unremarkable. IMPRESSION: No sonographic evidence of deep vein thrombosis. Electronically signed by: Duy Macias On 04/29/2021 20:44:25 PM
--- NOTE | 2021-04-29 20:47 | HPEPDOC ---
[facility] Medical History & Physical Date of Admission Apr 29, 2021 Date of Service: Apr 29, 2021 Attending Physician: BHAVANA JUDD MD History and Physical CHIEF COMPLAINT: [76 y/o male c/o sob, weakness x2 days] HISTORY OF PRESENT ILLNESS: [This is a 76 y/o male with a pmh of cva, htn, cad s/p stenting, thaddeus, gerd, asthma who reports to our ed with a cc of increasing dyspnea and weakness for the past 2-3 days. Patient states that he thinks his symptoms may have first started about 8 days ago when he received the first dose of his covid vaccination, however did not really bother him until 2-3 days ago. Patient states that he first experienced extreme malaise followed by dyspnea and profound weakness. Patient also endorses cough productive of yellow sputum, subjective fevers, calf pain and anorexia. Patient, at the time of my exam, denies any chills, chest pain, tightness, abd pain, n/v/d/c, pedal edema. Patient found to be covid+ in our ed.] PAST MEDICAL HISTORY: 1. [See HPI PAST SURGICAL HISTORY: 1. [Cardiac catheterization]. 2. [Unspec. hernia repair]. SOCIAL HISTORY: Tobacco use:[Denies] ETOH: [Occasional] Illicit drug use: [Denies] FAMILY HISTORY: Reviewed - none pertinent ALLERGIES: Please see below. REVIEW OF SYSTEMS: CONSTITUTIONAL: [See HPI]. HEENT: [See HPI]. CARDIOVASCULAR: [Denies chest pain, palpitations]. RESPIRATORY: [See HPI]. GASTROINTESTINAL: [See HPI]. GENITOURINARY: [Denies dysuria]. SKIN: [Denies rash]. MUSCULOSKELETAL: [Denies acute joint/back pain]. NEUROLOGICAL: [Denies syncope, paresthesias]. ENDOCRINE: [Denies hx of DM]. HEMATOLOGIC/LYMPHATIC: [Denies hx of vte]. HOME MEDICATIONS: Please see below. PHYSICAL EXAMINATION: VITAL SIGNS: Please see below. GENERAL APPEARANCE: [This is a 76 y/o male who is alert and oriented to all questioning. He has obvious increased work of breathing. Patient only speaks in short sentences d/t breathing]. HEENT: [No mass or lesion. EOMI. No scleral icterus. Nares patent. Oral mucosa dry]. CARDIOVASCULAR: [Regular rate, rhythm. No murmurs, rubs, gallops]. LUNGS: [Decreased lung sounds throughout.]. ABDOMEN: [Soft, nontender]. MUSCULOSKELETAL: [No joint deformity. Calves tender to squeeze.]. EXTREMITIES: [No pedal edema appreciated. No overlying skin changes. Pulses intact.]. NEUROLOGICAL: [Speech clear. A+Ox3. No focal deficits]. PSYCHIATRIC: [Mood and affect appear appropriate]. LABORATORY DATA: See below. IMAGING: [CXR: FINDINGS: The mediastinum and cardiac silhouette are stable and cardiomegaly is again suggested. The lung guzman demonstrate chronic changes (left greater than right) without acute consolidation, effusion, or pneumothorax. Skeletal structures are intact. IMPRESSION: Chronic changes similar to prior examination. No acute cardiopulmonary process appreciated.] MICROBIOLOGY: Please see below. ASSESSMENT: [This is a 76 y/o male with a pmh of cva, htn, cad s/p stenting, thaddeus, gerd, asthma who reports to our ed with a cc of increasing dyspnea and weakness for the past 2-3 days. Patient found to be covid+ in our ed.]. . PLAN: 1. [COVID-19 - Patient first dose of covid vaccination was 8 days ago, unfortunately this is not time enough to mount proper immune response to vaccination - Due to patient's multiple comorbidities, age, bmi, he is at high risk for a poor outcome from covid - Will begin remdesevir, dexamethasone option - Supplemental o2 as needed titrated to >90 - Continuous pulse ox - Combivents for sx control - tylenol for fevers - maintenance ivf for now d/t recent poor oral intake - Admit for tx 2. Pancytopenia - Patient seems to have this issue at baseline - However, hb today is 7.8. i/s/o cad, transfusion is indicated - 1u prbc ordered, goal hb is >8 - will monitor cbc 3. CAD - continue nitro, asa - trop normal in the ed 4. HTN - continue coreg, torsemide, spironolactone 5. HLD - continue atorvastatin 6. Asthma - continue at home advair - hold at home albuterol in preference of combivent DVT prophylaxis - lovenox ]. Vital Signs Vital Signs Date Time Temp Pulse Resp B/P (MAP) Pulse Ox O2 Delivery O2 Flow Rate FiO2 04/29/21 18:15 99.1 22 126/58 (80) 04/29/21 18:01 78 93 04/29/21 16:02 Room Air Laboratory Data Labs 24H Laboratory Tests 2 04/29/21 16:20: Neutrophils (%) (Auto) , Nucleated Red Blood Cells % (auto) 0.0, Neutrophils 53, Band Neutrophils 10, Lymphocytes (Manual) 16, Monocytes (Manual) 21H, Polychromasia 1+, Poikilocytosis 1+, Anisocytosis 2+, Microcytosis , Macrocyto sis 2+, Ovalocytes 1+, Platelet Estimate DECREASED, Immature Platelet Fraction 4.5, Prothrombin Time 15.2H, Prothromb Time International Ratio 1.16, Activated Partial Thromboplast Time 39.7H, Fibrinogen 508H, D-Dimer, Quantitative 911.58H, Anion Gap 6L, Glomerular Filtration Rate 41.5L, Lactic Acid Level 1.6, Calcium Level 7.7L, Magnesium Level 2.4, Ferritin 1046H, Total Bilirubin 1.3H, Aspartate Amino Transf (AST/SGOT) 30, Alanine Aminotransferase (ALT/SGPT) 31, Alkaline Phosphatase 82, Lactate Dehydrogenase 235, Total Creatine Kinase 148, Creatine Kinase MB 2.1, Creatine Kinase MB Relative Index 1.42, Troponin I < 0.02, C- Reactive Protein, Quantitative 7.35H, Total Protein 7.1, Albumin 3.5, Albumin/Globulin Ratio 1.0 04/29/21 16:36: 04/29/21 16:48: Coronavirus (COVID-19)(PCR) POSITIVEA, Influenza Type A (RT-PCR) NEGATIVE, Influenza Type B (RT-PCR) NEGATIVE, Respiratory Syncytial Virus (PCR) NEGATIVE CBC/BMP Laboratory Tests 04/29/21 16:20 Microbiology Microbiology 04/29/21 Blood Culture, Received Pending 04/29/21 Blood Culture, Received Pending Home Medications Scheduled Aspirin (Aspirin EC) 81 Mg Tablet.dr, 81 MG PO DAILY Atorvastatin Calcium (Atorvastatin Calcium) 20 Mg Tablet, 20 MG PO QHS Carvedilol (Carvedilol) 6.25 Mg Tablet, 6.25 MG PO BID Fluticasone Propion/Salmeterol (Advair Hfa 230-21 Mcg Inhaler) 12 Gm Hfa.aer.ad, 2 PUFF INH BID Magnesium Hydroxide (Milk of Magnesia) 400 Mg/5 Ml Oral.susp, 400 MG PO DAILY Nitroglycerin (Nitroglycerin) 0.4 Mg Tab.subl, 0.4 MG SL NITRO Psyllium Husk (with Sugar) (Metamucil Powder) 575 Gm Powder, 5 ML PO DAILY Spironolactone (Spironolactone) 25 Mg Tablet, 25 MG PO DAILY Torsemide (Torsemide) 20 Mg Tablet, 20 MG PO DAILY Scheduled PRN Albuterol Sulf (Albuterol Sulfate) 2.5 Mg/3 Ml Vial.neb, 2.5 ML NEB QID PRN for SHORTNESS OF BREATH Albuterol Sulfate (Ventolin Hfa) 18 Gm Hfa.aer.ad, 1 PUFF INH Q4-6HP PRN for wheezing Allergies Coded Allergies: No Known Drug Allergies (Verified Allergy, Unknown, 04/12/19) A-FIB/CHADSVASC A-FIB History Current/History of A-Fib/PAF?: No CON LUNA Apr 29, 2021 20:47
[2021-04-29] MEDS: CARVedilol 6.25 MG TAB PO SCH (22:36)
[2021-04-29] MEDS: dexameTHASONE 4 MG/ML 1ML VIAL (J1100 PER 1MG) IV SCH (22:36)
[2021-04-29] MEDS: ATORVASTATIN 20 MG TAB PO SCH (22:36)
[2021-04-29] MEDS: NS 1,000 ML IV SCH (22:37)
[2021-04-29 22:52] VITALS: BP 178/81
[2021-04-29] MEDS: ACETAMINOPHEN 500 MG TAB PO PRN (22:55)
[2021-04-29 23:07] VITALS: BP 144/65
[2021-04-29] MEDS: COMBIVENT RESPIMAT 100-20MCG INHALER 4GM INH PRN (23:14)
[2021-04-30] VITALS (8 sets, daily range): BP systolic 113–142; BP diastolic 56–91; O2SAT 96
[2021-04-30] MEDS: NS 1,000 ML IV SCH (01:59)
[2021-04-30] MEDS: COMBIVENT RESPIMAT 100-20MCG INHALER 4GM INH PRN (04:32)
[2021-04-30] MEDS ORDERED: REMDESIVIR 200 MG in NS 250 ML IV ONE (05:00)
[2021-04-30] MEDS ORDERED: SODIUM CHLORIDE 0.9% INJ 10 ML SYR IV ONE (05:00)
[2021-04-30] MEDS: ACETAMINOPHEN 500 MG TAB PO PRN ×2 (06:46→21:51)
[2021-04-30 08:49] LABS: HEMATOCRIT 25.8 % (42.0-52.0); HEMOGLOBIN 8.2 g/dl (13.5-17.5); LYMPH # 0.5 10^3/uL (1.5-5.0); LYMPH % 11.7 % (24.0-44.0); MEAN CORPUSCULAR HEMOGLOBIN 32.5 pg (27.0-33.0); MEAN CORPUSCULAR HGB CONC 31.8 g/dl (32.0-36.5); MEAN CORPUSCULAR VOLUME 102.4 fl (80.0-96.0); MONO # 0.5 10^3/uL (0.0-0.8); MONO % 12.3 % (2.0-8.0); NEUTROPHILS # 2.8 10^3/uL (1.5-8.5); NEUTROPHILS % 72.1 % (36.0-66.0); RED BLOOD COUNT 2.52 10^6/uL (4.30-6.10); WHITE BLOOD COUNT 3.8 10^3/uL (4.0-10.0)
[2021-04-30] MEDS ORDERED: TORSEMIDE 20 MG TAB PO SCH (09:00)
[2021-04-30 09:13] LABS: CALCIUM LEVEL 7.5 MG/DL (8.8-10.2); CREATININE FOR GFR 1.28 MG/DL (0.70-1.30); MAGNESIUM LEVEL 2.7 MG/DL (1.8-2.4); POTASSIUM SERUM 4.8 MEQ/L (3.5-5.1)
[2021-04-30 09:18] LABS: PLATELET COUNT, AUTOMATED 64 10^3/uL (150-450)
[2021-04-30] MEDS ORDERED: NITROGLYCERIN 0.4 MG SUBL TABLET SL PRN (10:45)
[2021-04-30] MEDS: SPIRONOLACTONE 25 MG TAB PO SCH (11:01)
[2021-04-30] MEDS: METAMUCIL (PSYLLIUM) PACKET PO SCH (11:01)
[2021-04-30] MEDS: CARVedilol 6.25 MG TAB PO SCH ×2 (11:02→21:16)
[2021-04-30] MEDS: ASPIRIN 81MG ENTERIC TABLET PO SCH (11:02)
[2021-04-30] MEDS: ENOXAPARIN 40MG/0.4ML SYRINGE (J1650 PER 10MG) SC SCH (11:11)
--- NOTE | 2021-04-30 16:39 | IPNPDOC ---
Date Seen The patient was seen on 04/30/21. Progress Note SUBJECTIVE: Patient examined at bedside. Not in respiratory distress. Saturating 95% on room air. States that he is having any chest pain shortness palpitations fevers chills nausea vomiting diarrhea. OBJECTIVE VITAL SIGNS: please see below General: NAD, comfortable HEENT: PERRLA, EOMI, sclerae clear Neck: supple, normal ROM, no JVD Respiratory: lungs CTAB, no wheeze, no rales, no crackles CVS: RRR, normal S1, S2, no murmurs Abdo: soft, no masses, no hepatosplenomegaly, BS+, no rebound tenderness Extremities: no edema, pulses 2+ MSK: no joint deformities, normal ROM Neuro: no focal neuro deficits, moving all 4 extremities, CN2-12 intact. Strength 5/5 in all 4 extremities. No nystagmus. Psych: calm, cooperative, AAO x 3 LABORATORY DATA, IMAGING STUDIES, MICROBIOLOGY: Please see below. DVT prophylaxis ordered?: ASSESSMENT AND PLAN: [This is a 76 y/o male with a pmh of cva, htn, cad s/p stenting, thaddeus, gerd, asthma who reports to our ed with a cc of increasing dyspnea and weakness for the past 2-3 days. Patient found to be covid+ in our ed.]. . PLAN: 1. [COVID-19 - Patient first dose of covid vaccination was 8 days ago, unfortunately this is not time enough to mount proper immune response to vaccination - Due to patient's multiple comorbidities, age, bmi, he is at high risk for a poor outcome from covid - Will begin remdesevir, dexamethasone option - Supplemental o2 as needed titrated to >90 - Continuous pulse ox - Combivents for sx control - tylenol for fevers - DC IVF as tolerating PO. - Admit for tx 2. Pancytopenia - Patient seems to have this issue at baseline - patient follows with hematology, Dr. Garcia. Reviewed last note, hx of AOCD. Has been getting EPO q2 week. - However, hb today is 7.8. i/s/o cad, transfusion is indicated - 1u prbc ordered, goal hb is >8 - will monitor cbc - obtained peripheral smear, pancytopniea is new from prior exam (bone marrow study) - rare immature myeloid cells/metamyelocytes. - monitor PLT 3. CAD - continue nitro, asa - trop normal in the ed 4. HTN - continue coreg, torsemide, spironolactone 5. HLD - continue atorvastatin 6. Asthma - continue at home advair - hold at home albuterol in preference of combivent THADDEUS - needs to return to pul for titrate s/p sleep study DVT prophylaxis - lovenox ]. VS, I&O, 24H, Fishbone Vital Signs/I&O Vital Signs Date Time Temp Pulse Resp B/P (MAP) Pulse Ox O2 Delivery O2 Flow Rate FiO2 04/30/21 14:00 96.1 72 20 113/56 (75) 96 Room Air 04/30/21 06:01 2.0 I&O- Last 24 Hours up to 6 AM 04/30/21 06:00 Intake Total 400 ml Output Total 1200 ml Balance -800 ml Laboratory Data 24H LABS Laboratory Tests 2 04/29/21 16:36: Procalcitonin <0.05 04/29/21 16:48: Coronavirus (COVID-19)(PCR) POSITIVEA, Influenza Type A (RT-PCR) NEGATIVE, Influenza Type B (RT-PCR) NEGATIVE, Respiratory Syncytial Virus (PCR) NEGATIVE 04/30/21 08:27: Immature Granulocyte % (Auto) 3.9H, Neutrophils (%) (Auto) 72.1H, Lymphocytes (%) (Auto) 11.7L, Monocytes (%) (Auto) 12.3H, Eosinophils (%) (Auto) 0.0, Basophils (%) (Auto) 0.0, Neutrophils # (Auto) 2.8, Lymphocytes # (Auto) 0.5L, Monocytes # (Auto) 0.5, Eosinophils # (Auto) 0.0, Basophils # (Auto) 0.0, Nucleated Red Blood Cells % (auto) 0.5H, Differential Slide Review Report, Peripheral Blood Smear Path Consult PERIPHERAL SMEAR, Anion Gap 8, Glomerular Filtration Rate 58.0, Calcium Level 7.5L, Magnesium Level 2.7H CBC/BMP Laboratory Tests 04/30/21 08:27 Microbiology Microbiology 04/29/21 Blood Culture, Received Pending 04/29/21 Blood Culture, Received Pending CARLOTA CORTES MD Apr 30, 2021 16:39
[2021-04-30] MEDS: ATORVASTATIN 20 MG TAB PO SCH (21:16)
[2021-04-30] MEDS: dexameTHASONE 4 MG/ML 1ML VIAL (J1100 PER 1MG) IV SCH (21:17)
[2021-04-30] MEDS: ADVAIR HFA 230/21MCG INHALER INH SCH ×3 (21:17→21:21)
[2021-04-30 23:36] LABS: APPEARANCE, URINE CLEAR (CLEAR); BACTERIA, URINE AUTO NEGATIVE (NEGATIVE); BILIRUBIN, URINE AUTO NEGATIVE (NEGATIVE); BLOOD, URINE BLOOD NEGATIVE (NEGATIVE); COLOR, URINE YELLOW (YELLOW); GLUCOSE, URINE (UA) AUTO NEGATIVE (NEGATIVE); KETONE, URINE AUTO NEGATIVE (NEGATIVE); LEUKOCYTE ESTERASE, URINE AUTO NEGATIVE (NEGATIVE); MUCUS, URINE SMALL (NEGATIVE); NITRITE, URINE AUTO NEGATIVE (NEGATIVE); PROTEIN, URINE AUTO NEGATIVE (NEGATIVE); RBC, URINE AUTO 0 /HPF (0-3); SPECIFIC GRAVITY URINE AUTO 1.009 (1.002-1.035); SQUAMOUS EPITHELIAL CELL UR AU 0 /HPF (0-6); UROBILINOGEN, URINE AUTO 0.2 mg/dL (0.0-2.0); WBC, URINE AUTO 0 /HPF (0-3)
[2021-05-01] VITALS (12 sets, daily range): BP systolic 138–168; BP diastolic 64–72; O2SAT 92–97
[2021-05-01] MEDS ORDERED: SODIUM CHLORIDE 0.9% INJ 10 ML SYR IV SCH (04:00)
[2021-05-01] MEDS ORDERED: REMDESIVIR 100 MG in NS 250 ML IV SCH (04:00)
[2021-05-01 08:02] LABS: HEMATOCRIT 26.3 % (42.0-52.0); HEMOGLOBIN 8.2 g/dl (13.5-17.5); MEAN CORPUSCULAR HEMOGLOBIN 32.4 pg (27.0-33.0); MEAN CORPUSCULAR HGB CONC 31.2 g/dl (32.0-36.5); RED BLOOD COUNT 2.53 10^6/uL (4.30-6.10); WHITE BLOOD COUNT 3.7 10^3/uL (4.0-10.0)
[2021-05-01 08:10] LABS: PLATELET COUNT, AUTOMATED 66 10^3/uL (150-450)
[2021-05-01 08:14] LABS: INR 1.2; PARTIAL THROMBOPLASTIN TIME 38.3 SECONDS (25.9-37.0); PROTHROMBIN TIME 15.6 SECONDS (12.7-14.5)
[2021-05-01 08:30] LABS: ALT/SGPT 27 U/L (12-78); BILIRUBIN,DIRECT 0.3 MG/DL (0.0-0.2); BILIRUBIN,TOTAL 0.6 MG/DL (0.2-1.0); BLOOD UREA NITROGEN 41 MG/DL (7-18); CALCIUM LEVEL 8.3 MG/DL (8.8-10.2); CARBON DIOXIDE LEVEL 25 MEQ/L (21-32); CHLORIDE LEVEL 108 MEQ/L (98-107); CPK CREATINE PHOSPHOKINASE 171 U/L (39-308); CREATININE FOR GFR 1.47 MG/DL (0.70-1.30); FERRITIN 1229 NG/ML (26-388); GLOMERULAR FILTRATION RATE 49.5 (>42); GLUCOSE, FASTING 125 MG/DL (70-100); LDH LACTATE DEHYDROGENASE 232 U/L (87-241); MAGNESIUM LEVEL 2.6 MG/DL (1.8-2.4); NT-PRO BNP 3431 PG/ML (<450); POTASSIUM SERUM 4.8 MEQ/L (3.5-5.1); SODIUM LEVEL 137 MEQ/L (136-145); TOTAL PROTEIN 7.1 GM/DL (6.4-8.2); TROPONIN I < 0.02 NG/ML (< 0.10)
[2021-05-01 08:55] LABS: ANISOCYTOSIS 2+; LYMPHOCYTES 14 % (16-44); MONOCYTES 6 % (0-5); MYELOCYTES 1 % (0-0); NEUTROPHILS 60 % (28-66); PLATELET ESTIMATE DECREASED (NORMAL)
[2021-05-01 08:56] LABS: HYPOCHROMASIA 1+
[2021-05-01] MEDS: ADVAIR HFA 230/21MCG INHALER INH SCH (08:56)
[2021-05-01] MEDS: ENOXAPARIN 40MG/0.4ML SYRINGE (J1650 PER 10MG) SC SCH (09:00)
[2021-05-01] MEDS: ASPIRIN 81MG ENTERIC TABLET PO SCH (09:58)
[2021-05-01] MEDS: METAMUCIL (PSYLLIUM) PACKET PO SCH (09:58)
[2021-05-01] MEDS: SPIRONOLACTONE 25 MG TAB PO SCH (09:58)
[2021-05-01] MEDS: CARVedilol 6.25 MG TAB PO SCH (09:58)
[2021-05-01] MEDS: TORSEMIDE 20 MG TAB PO SCH ×2 (09:59→17:32)
[2021-05-01] MEDS ORDERED: TORS20TA2 PO (12:53)
--- NOTE | 2021-05-01 20:01 | DS.PDOC ---
Discharge Summary General Date of Admission Apr 29, 2021 at 18:44 Date of Discharge 05/01/21 Discharge Summary PROCEDURES PERFORMED DURING STAY: [None]. ADMITTING DIAGNOSES: COVID-19 Pancytopenia CAD HTN HLD Asthma ILIA DISCHARGE DIAGNOSES: COVID-19 Pancytopenia CAD HTN HLD Asthma ILIA COMPLICATIONS/CHIEF COMPLAINT: Covid-19, Pancytopenia. HISTORY OF PRESENT ILLNESS: This is a 76 y/o male with a pmh of cva, htn, cad s/p stenting, ilia, gerd, asthma who reports to our ed with a cc of increasing dyspnea and weakness for the past 2-3 days. Patient found to be covid+ in our ed HOSPITAL COURSE: During the hospital stay the following issue addressed COVID-19 - Patient first dose of covid vaccination was 8 days ago, unfortunately this is not time enough to mount proper immune response to vaccination Patient received remdesevir, dexamethasone. Today patient had good oxygen saturation on room air. Did well with physical therapy. Pancytopenia - Patient seems to have this issue at baseline - patient follows with hematology, Dr. Garcia. Reviewed last note, hx of AOCD. Has been getting EPO q2 week. Patient received 1 unit of blood Hemoglobin stable Also patient was found to have elevated BNP, the dose of torsemide on discharge was increased to 20 mg twice daily. Patient will need echo in the outpatient settings and close follow-up with unload associate DISCHARGE MEDICATIONS: Please see below. ALLERGIES: Please see below. PHYSICAL EXAMINATION ON DISCHARGE: VITAL SIGNS: Please see below. VITAL SIGNS: please see below General: NAD, comfortable HEENT: PERRLA, EOMI, sclerae clear Neck: supple, normal ROM, no JVD Respiratory: lungs CTAB, no wheeze, no rales, no crackles CVS: RRR, normal S1, S2, no murmurs Abdo: soft, no masses, no hepatosplenomegaly, BS+, no rebound tenderness Extremities: no edema, pulses 2+ MSK: no joint deformities, normal ROM Neuro: no focal neuro deficits, moving all 4 extremities, CN2-12 intact. Strength 5/5 in all 4 extremities. No nystagmus. Psych: calm, cooperative, AAO x 3 LABORATORY DATA: Please see below. IMAGING: Coronavirus workup COMPARISON: 02/22/2021 TECHNIQUE: Portable AP view of the chest FINDINGS: The mediastinum and cardiac silhouette are stable and cardiomegaly is again suggested. The lung guzman demonstrate chronic changes (left greater than right) without acute consolidation, effusion, or pneumothorax. Skeletal structures are intact. IMPRESSION: Chronic changes similar to prior examination. No acute cardiopulmonary process appreciated. PROGNOSIS: Fair ACTIVITY: [As tolerated]. DIET: Cardiac DISPOSITION: 06 Home Health Service. DISCHARGE INSTRUCTIONS: Fluid restriction to 1500 cc for next 5 to 7 days ITEMS TO FOLLOWUP ON ON OUTPATIENT: Follow-up with PCP in 3 to 5 days and unload associate DISCHARGE CONDITION: [Stable]. TIME SPENT ON DISCHARGE: 40minutes. Vital Signs/I&Os Vital Signs Date Time Temp Pulse Resp B/P (MAP) Pulse Ox O2 Delivery O2 Flow Rate FiO2 05/01/21 16:23 97.0 66 21 158/72 (100) 96 Room Air 04/30/21 06:01 2.0 I&O- Last 24 Hours up to 6 AM 05/01/21 06:00 Intake Total 1460 ml Output Total 1850 ml Balance -390 ml Laboratory Data Labs 24H Laboratory Tests 2 04/30/21 23:04: Urine Color YELLOW, Urine Appearance CLEAR, Urine pH 5.0, Urine Specific Stout 1.009, Urine Protein NEGATIVE, Urine Glucose (Auto)(UA) NEGATIVE, Urine Ketones (Auto) NEGATIVE, Urine Blood NEGATIVE, Urine Nitrite NEGATIVE, Urine Bilirubin NEGATIVE, Urine Urobilinogen 0.2, Urine Leukocyte Esterase (Auto) NEGATIVE, Urine WBC (Auto) 0, Urine RBC (Auto) 0, Urine Hyaline Casts (Auto) 4, Urine Bacteria (Auto) NEGATIVE, Urine Squamous Epithelial Cells 0, Urine Mucus (Auto) SMALL, Urine Sperm (Auto) 05/01/21 07:26: Immature Granulocyte % (Auto) , Neutrophils (%) (Auto) , Nucleated Red Blood Cells % (auto) 1.1H, Neutrophils 60, Band Neutrophils 19H, Lymphocytes (Manual) 14L, Monocytes (Manual) 6H, Myelocytes 1H, Hypochromasia 1+, Anisocytosis 2+, Macrocytosis 2+, Platelet Estimate DECREASED, Immature Platelet Fraction 8.3, Prothrombin Time 15.6H, Prothromb Time International Ratio 1.20, Activated Partial Thromboplast Time 38.3, Fibrinogen 515H, Anion Gap 4L, Glomerular Filtration Rate 49.5, Calcium Level 8.3L, Magnesium Level 2.6H, Ferritin 1229H, Total Bilirubin 0.6#, Direct Bilirubin 0.3H, Aspartate Amino Transf (AST/SGOT) 22, Alanine Aminotransferase (ALT/SGPT) 27, Alkaline Phosphatase 77, Lactate Dehydrogenase 232, Total Creatine Kinase 171, Troponin I < 0.02, XL-Tyi-[id number]-Type Natriuretic Peptide 3431H, Total Protein 7.1, Albumin 3.0L, Albumin/Globulin Ratio 0.7, Procalcitonin 0.08 CBC/BMP Laboratory Tests 05/01/21 07:26 Microbiology Microbiology 04/29/21 Blood Culture - Preliminary, Resulted No Growth after 48 hours. All Specime... 04/29/21 Blood Culture - Preliminary, Resulted No Growth after 48 hours. All Specime... Discharge Medications Scheduled Aspirin (Aspirin EC) 81 Mg Tablet.dr, 81 MG PO DAILY, (Reported) Atorvastatin Calcium (Atorvastatin Calcium) 20 Mg Tablet, 20 MG PO QHS, (Reported) Carvedilol (Carvedilol) 6.25 Mg Tablet, 6.25 MG PO BID, (Reported) Fluticasone Propion/Salmeterol (Advair Hfa 230-21 Mcg Inhaler) 12 Gm Hfa.aer.ad, 2 PUFF INH BID, (Reported) Magnesium Hydroxide (Milk of Magnesia) 400 Mg/5 Ml Oral.susp, 400 MG PO DAILY, (Reported) Nitroglycerin (Nitroglycerin) 0.4 Mg Tab.subl, 0.4 MG SL NITRO, (Reported) Psyllium Husk (with Sugar) (Metamucil Powder) 575 Gm Powder, 5 ML PO DAILY, (Reported) Torsemide (Torsemide) 20 Mg Tablet, 20 MG PO BID@0900,1700 Scheduled PRN Albuterol Sulf (Albuterol Sulfate) 2.5 Mg/3 Ml Vial.neb, 2.5 ML NEB QID PRN for SHORTNESS OF BREATH, (Reported) Albuterol Sulfate (Ventolin Hfa) 18 Gm Hfa.aer.ad, 1 PUFF INH Q4-6HP PRN for wheezing, (Reported) Allergies Coded Allergies: No Known Drug Allergies (Verified Allergy, Unknown, 04/12/19) ROSE MARY ZAIDI DO May 01, 2021 20:01
== END 2021-05-01 19:00 | disposition home health service (06) | DRG 178 ==
LOC: M ED 16:01 → M ED INP 18:44 → ENRESERV 04-30 06:10 → M 4MAIN 04-30 09:28
PROVIDERS: ADMIT Internal Medicine; ATTEND Internal Medicine
DX: U07.1 COVID-19 (principal); D61.818 Other pancytopenia; J45.909 Unspecified asthma, uncomplicated; G47.33 Obstructive sleep apnea (adult) (pediatric); I25.10 Atherosclerotic heart disease of native coronary artery without angina pectoris; I10 Essential (primary) hypertension; Z95.2 Presence of prosthetic heart valve; K21.9 Gastro-esophageal reflux disease without esophagitis; Z79.82 Long term (current) use of aspirin; Z79.899 Other long term (current) drug therapy

== ENCOUNTER 2021-05-03 11:50 | Emergency (ER) | payer MEDICARE ==
[~2021-05-03 11:50] MED LIST changes: +META28.32 PO; +MILKSUS3 PO; +TORS20TA2 PO
[2021-05-03 12:13] VITALS: BP 138/72
[2021-05-03] MEDS ORDERED: ACETAMINOPHEN 325 MG TAB PO ONE (13:00)
[2021-05-03] MEDS ORDERED: AMOXICILLIN 500 MG CAP PO ONE (13:00)
[2021-05-03] MEDS ORDERED: FLON1SPR NARES (13:12)
[2021-05-03] MEDS ORDERED: AMOX875T PO (13:12)
== END 2021-05-03 15:07 | disposition home or self-care (01) ==
LOC: M ED 11:50 → EDBD 11:50 → M ED 15:07
DX: H66.001 Acute suppurative otitis media without spontaneous rupture of ear drum, right ear (principal); U07.1 COVID-19; J44.9 Chronic obstructive pulmonary disease, unspecified; Z95.5 Presence of coronary angioplasty implant and graft

== ENCOUNTER 2021-12-01 00:03 | Inpatient (IN) | payer MEDICARE ==
[~2021-12-01] VITALS: Ht 182.9 cm; Wt 110.0 kg
[~2021-12-01 00:03] MED LIST changes: +AMOX875T PO; +FLON1SPR NARES; -IBUP200T45 PO; +IBUP200T46 PO
[2021-12-01] MEDS ORDERED: CARV3.12 PO (00:26)
[2021-12-01] MEDS ORDERED: NS 1,000 ML IV ONE (01:20)
[2021-12-01 01:48] LABS: VENOUS BASE EXCESS -0.5 (-2.0-2.0); VENOUS HCO3 22.3 MEQ/L (23.0-27.0); VENOUS O2 SATURATION 98.7 % (60.0-80.0); VENOUS PARTIAL PRESSURE CO2 29.3 mmHg (38.0-50.0); VENOUS PARTIAL PRESSURE O2 122.3 mmHg (30.0-50.0); VENOUS PH 7.499 UNITS (7.330-7.430); VENOUS STANDARD HCO3 24.1 MEQ/L; VENOUS TOTAL CO2 23.2 MEQ/L (24.0-28.0)
[2021-12-01 01:49] LABS: HEMATOCRIT 25.4 % (42.0-52.0); HEMOGLOBIN 7.8 g/dl (13.5-17.5); MEAN CORPUSCULAR HEMOGLOBIN 29.7 pg (27.0-33.0); MEAN CORPUSCULAR HGB CONC 30.7 g/dl (32.0-36.5); MEAN CORPUSCULAR VOLUME 96.6 fl (80.0-96.0); PLATELET COUNT, AUTOMATED 143 10^3/uL (150-450); RED BLOOD COUNT 2.63 10^6/uL (4.30-6.10); WHITE BLOOD COUNT 16.1 10^3/uL (4.0-10.0)
[2021-12-01] MEDS ORDERED: LORazepam 0.5 MG TAB PO ONE (02:00)
[2021-12-01 02:03] LABS: INR 1.08; PROTHROMBIN TIME 14.4 SECONDS (12.7-14.5)
[2021-12-01 02:06] LABS: ABG BASE EXCESS -0.2 (-2.0-2.0); ABG HCO3 24.1 MEQ/L (22.0-26.0); ABG PARTIAL PRESSURE CO2 37.7 mmHg (35.0-45.0); ABG STANDARD HCO3 24.2 MEQ/L (22.0-26.0); ABG TOTAL CO2 25.3 MEQ/L (23.0-31.0); ABG pH (ARTERIAL) 7.424 UNITS (7.350-7.450)
[2021-12-01 02:10] LABS: ABG PARTIAL PRESSURE O2 49.9 mmHg (75.0-100.0)
[2021-12-01 02:15] LABS: CK-MB VALUE MASS 1.3 NG/ML (<3.6); MB/CK RELATIVE INDEX 0.98 (< OR =4)
[2021-12-01 02:16] LABS: ANISOCYTOSIS 1+; HYPOCHROMASIA 1+; LYMPHOCYTES 16 % (16-44); MONOCYTES 8 % (0-5); NEUTROPHILS 74 % (28-66); PLATELET ESTIMATE DECREASED (NORMAL)
[2021-12-01 02:21] LABS: ALBUMIN 3.2 GM/DL (3.2-5.2); BILIRUBIN,DIRECT 0.2 MG/DL (0.0-0.2); BILIRUBIN,TOTAL 1.5 MG/DL (0.2-1.0); CALCIUM LEVEL 8.3 MG/DL (8.8-10.2); CREATININE FOR GFR 1.39 MG/DL (0.70-1.30); GLOMERULAR FILTRATION RATE 52.7 (>42); POTASSIUM SERUM 5.5 MEQ/L (3.5-5.1); TOTAL PROTEIN 7.4 GM/DL (6.4-8.2)
[2021-12-01] MEDS ORDERED: ISOVUE-370 76% 100ML VIAL As Ordered ONE (03:22)
[2021-12-01] MEDS ORDERED: AZITHROMYCIN 250MG TABLET PO ONE (05:00)
[2021-12-01] MEDS ORDERED: cefTRIAXone SOD 1 GM in D5W MINI-BAG PLUS 50 ML IV ONE (05:00)
[2021-12-01] MEDS ORDERED: ALBUTEROL SULFATE 2.5 MG/0.5 ML INH NEB SOLN NEB PRN ×2 (05:15→16:50)
[2021-12-01] MEDS: NS 1,000 ML IV SCH (05:15)
[2021-12-01] MEDS ORDERED: med rec comment (06:05)
[2021-12-01] MEDS ORDERED: ADVA115A INH (06:05)
[2021-12-01] MEDS ORDERED: TORS20TA2 PO (06:05)
[2021-12-01] MEDS ORDERED: ATOR80TA59 PO (06:05)
[2021-12-01] MEDS ORDERED: CLOP75TA2 PO (06:06)
[2021-12-01] MEDS ORDERED: HOME MED LIST COMPLETE! XX SCH (06:10)
[2021-12-01 06:29] LABS: HEMOGLOBIN 7.9 g/dl (13.5-17.5)
[2021-12-01] MEDS: PANTOPRAZOLE 40MG VIAL IV SCH ×2 (06:49→18:10)
[2021-12-01 07:57] LABS: PERCENT SATURATION 13.3 % (19.7-50.0)
[2021-12-01] MEDS: IPRATROPIUM 0.5MG/ALBUTEROL 2.5MG INH SOL UD 3ML (DUONEB) NEB SCH ×4 (08:24→19:55)
[2021-12-01] MEDS ORDERED: ASPIRIN 300 MG SUPP PR SCH (09:00)
[2021-12-01 10:32] VITALS: BP 147/85
[2021-12-01 10:50] VITALS: BP 146/67
[2021-12-01 11:35] VITALS: BP 148/67
[2021-12-01 12:10] VITALS: BP_SYST 148; BP_SYST 162; BP_DIAS 67; BP_DIAS 71
[2021-12-01 14:25] LABS: HEMATOCRIT 27.6 % (42.0-52.0); HEMOGLOBIN 8.5 g/dl (13.5-17.5); MEAN CORPUSCULAR HEMOGLOBIN 29.4 pg (27.0-33.0); MEAN CORPUSCULAR HGB CONC 30.8 g/dl (32.0-36.5); MEAN CORPUSCULAR VOLUME 95.5 fl (80.0-96.0); PLATELET COUNT, AUTOMATED 134 10^3/uL (150-450); RED BLOOD COUNT 2.89 10^6/uL (4.30-6.10); WHITE BLOOD COUNT 15.2 10^3/uL (4.0-10.0)
[2021-12-01] MEDS ORDERED: ALBUTEROL 90 MCG/ACT 8GM HFA INHALER INH PRN (16:50)
[2021-12-01] MEDS: ACETAMINOPHEN TAB 650MG DOSE (2X325MG) PO PRN (18:10)
[2021-12-01] MEDS: ADVAIR HFA 115/21MCG INHALER INH SCH (19:55)
[2021-12-01 20:00] VITALS: BP 158/83
[2021-12-01] MEDS: ATORVASTATIN 20 MG TAB PO SCH (20:37)
[2021-12-01] MEDS: CARVedilol 3.125 MG TAB PO SCH (20:39)
[2021-12-02] VITALS: BP 146/65
[2021-12-02] MEDS: NS 1,000 ML IV SCH (01:52)
[2021-12-02 04:00] VITALS: BP 163/72
[2021-12-02] MEDS: cefTRIAXone SOD 1 GM in D5W MINI-BAG PLUS 50 ML IV SCH (04:27)
[2021-12-02] MEDS: PANTOPRAZOLE 40MG VIAL IV SCH ×2 (05:24→17:37)
[2021-12-02] MEDS: AZITHROMYCIN INJ 500 MG, VIAL MATE ADAPTER 1 EACH in NS 250 ML IV SCH (05:24)
[2021-12-02] MEDS: ADVAIR HFA 115/21MCG INHALER INH SCH ×2 (07:09→19:16)
[2021-12-02] MEDS: IPRATROPIUM 0.5MG/ALBUTEROL 2.5MG INH SOL UD 3ML (DUONEB) NEB SCH ×4 (07:10→19:16)
[2021-12-02 08:00] VITALS: BP 168/72
[2021-12-02] MEDS: CARVedilol 3.125 MG TAB PO SCH ×2 (08:52→21:00)
[2021-12-02] MEDS ORDERED: PREVNAR 13 VACCINE SYRINGE IM ONE (09:00)
[2021-12-02] MEDS ORDERED: FLUBLOK(EGG FREE)(QUAD)INFLUENZA VACC 0.5ML SYRINGE 18YRS & OLDER IM ONE (09:00)
[2021-12-02 10:06] LABS: HEMATOCRIT 26.7 % (42.0-52.0); HEMOGLOBIN 8.3 g/dl (13.5-17.5); MEAN CORPUSCULAR HEMOGLOBIN 29.7 pg (27.0-33.0); MEAN CORPUSCULAR HGB CONC 31.1 g/dl (32.0-36.5); MEAN CORPUSCULAR VOLUME 95.7 fl (80.0-96.0); PLATELET COUNT, AUTOMATED 127 10^3/uL (150-450); RED BLOOD COUNT 2.79 10^6/uL (4.30-6.10); WHITE BLOOD COUNT 11.7 10^3/uL (4.0-10.0)
[2021-12-02 10:36] LABS: BLOOD UREA NITROGEN 18 MG/DL (7-18); CALCIUM LEVEL 8.2 MG/DL (8.8-10.2); CARBON DIOXIDE LEVEL 24 MEQ/L (21-32); CHLORIDE LEVEL 107 MEQ/L (98-107); CREATININE FOR GFR 1.13 MG/DL (0.70-1.30); GLOMERULAR FILTRATION RATE > 60.0 (>42); GLUCOSE, FASTING 141 MG/DL (70-100); MAGNESIUM LEVEL 2.2 MG/DL (1.8-2.4); POTASSIUM SERUM 3.8 MEQ/L (3.5-5.1); SODIUM LEVEL 137 MEQ/L (136-145)
[2021-12-02 16:00] VITALS: BP 133/74
[2021-12-02 20:00] VITALS: BP 137/63
[2021-12-02] MEDS: ATORVASTATIN 20 MG TAB PO SCH (21:00)
[2021-12-02] MEDS: ACETAMINOPHEN TAB 650MG DOSE (2X325MG) PO PRN (21:48)
[2021-12-03] MEDS: cefTRIAXone SOD 1 GM in D5W MINI-BAG PLUS 50 ML IV SCH (04:42)
[2021-12-03] MEDS: AZITHROMYCIN INJ 500 MG, VIAL MATE ADAPTER 1 EACH in NS 250 ML IV SCH (04:42)
[2021-12-03 06:27] LABS: HEMATOCRIT 25.4 % (42.0-52.0); HEMOGLOBIN 7.8 g/dl (13.5-17.5); MEAN CORPUSCULAR HEMOGLOBIN 29.8 pg (27.0-33.0); MEAN CORPUSCULAR HGB CONC 30.7 g/dl (32.0-36.5); MEAN CORPUSCULAR VOLUME 96.9 fl (80.0-96.0); PLATELET COUNT, AUTOMATED 118 10^3/uL (150-450); RED BLOOD COUNT 2.62 10^6/uL (4.30-6.10)
[2021-12-03 06:37] LABS: BLOOD UREA NITROGEN 20 MG/DL (7-18); CALCIUM LEVEL 8.3 MG/DL (8.8-10.2); CARBON DIOXIDE LEVEL 23 MEQ/L (21-32); CHLORIDE LEVEL 110 MEQ/L (98-107); CREATININE FOR GFR 1.14 MG/DL (0.70-1.30); GLOMERULAR FILTRATION RATE > 60.0 (>42); GLUCOSE, FASTING 105 MG/DL (70-100); POTASSIUM SERUM 3.8 MEQ/L (3.5-5.1); SODIUM LEVEL 141 MEQ/L (136-145)
[2021-12-03] MEDS: PANTOPRAZOLE 40MG VIAL IV SCH ×2 (07:13→18:10)
[2021-12-03] MEDS: ADVAIR HFA 115/21MCG INHALER INH SCH ×2 (07:23→20:13)
[2021-12-03] MEDS: IPRATROPIUM 0.5MG/ALBUTEROL 2.5MG INH SOL UD 3ML (DUONEB) NEB SCH ×4 (07:23→20:00)
[2021-12-03 08:00] VITALS: BP 135/63
[2021-12-03] MEDS: CARVedilol 3.125 MG TAB PO SCH ×2 (09:12→20:29)
[2021-12-03] MEDS ORDERED: ISOVUE-370 76% 100ML VIAL As Ordered ONE (11:24)
[2021-12-03] MEDS ORDERED: CEFD300C41 PO ×2 (13:38→13:42)
[2021-12-03] MEDS ORDERED: CARA1TAB6 PO ×2 (13:38→13:42)
[2021-12-03] MEDS ORDERED: PROT1TAB2 PO ×2 (13:38→13:42)
[2021-12-03 16:00] VITALS: BP 129/62
[2021-12-03 19:40] VITALS: BP 155/63
[2021-12-03 20:28] VITALS: BP 142/62
[2021-12-03] MEDS: ATORVASTATIN 20 MG TAB PO SCH (20:29)
[2021-12-03] MEDS: ACETAMINOPHEN TAB 650MG DOSE (2X325MG) PO PRN (21:06)
[2021-12-04] MEDS: cefTRIAXone SOD 1 GM in D5W MINI-BAG PLUS 50 ML IV SCH (05:27)
[2021-12-04 06:00] VITALS: BP 134/66
[2021-12-04 06:09] LABS: HEMATOCRIT 23.9 % (42.0-52.0); HEMOGLOBIN 7.3 g/dl (13.5-17.5); MEAN CORPUSCULAR HEMOGLOBIN 29.7 pg (27.0-33.0); MEAN CORPUSCULAR HGB CONC 30.5 g/dl (32.0-36.5); MEAN CORPUSCULAR VOLUME 97.2 fl (80.0-96.0); PLATELET COUNT, AUTOMATED 121 10^3/uL (150-450); RED BLOOD COUNT 2.46 10^6/uL (4.30-6.10); WHITE BLOOD COUNT 6.1 10^3/uL (4.0-10.0)
[2021-12-04] MEDS: PANTOPRAZOLE 40MG VIAL IV SCH (06:24)
[2021-12-04] MEDS: AZITHROMYCIN INJ 500 MG, VIAL MATE ADAPTER 1 EACH in NS 250 ML IV SCH (06:24)
[2021-12-04 06:34] LABS: BLOOD UREA NITROGEN 22 MG/DL (7-18); CALCIUM LEVEL 8.6 MG/DL (8.8-10.2); CARBON DIOXIDE LEVEL 28 MEQ/L (21-32); CHLORIDE LEVEL 108 MEQ/L (98-107); CREATININE FOR GFR 1.16 MG/DL (0.70-1.30); GLOMERULAR FILTRATION RATE > 60.0 (>42); GLUCOSE, FASTING 99 MG/DL (70-100); POTASSIUM SERUM 3.7 MEQ/L (3.5-5.1); SODIUM LEVEL 142 MEQ/L (136-145)
[2021-12-04] MEDS: ADVAIR HFA 115/21MCG INHALER INH SCH (07:19)
[2021-12-04] MEDS: IPRATROPIUM 0.5MG/ALBUTEROL 2.5MG INH SOL UD 3ML (DUONEB) NEB SCH ×2 (07:19→11:16)
[2021-12-04] MEDS ORDERED: FERROUS SULFATE 325MG TAB PO SCH (09:00)
[2021-12-04 09:28] VITALS: BP 123/58
[2021-12-04] MEDS: CARVedilol 3.125 MG TAB PO SCH (09:28)
[2021-12-04 14:00] VITALS: BP 148/67
[2021-12-04] MEDS ORDERED: CEFD300CAP PO (15:01)
[2021-12-04] MEDS ORDERED: AZIT-12 PO (15:01)
[2021-12-04] MEDS ORDERED: FERR1TAB8 PO (15:01)
[2021-12-04] MEDS ORDERED: CEFDINIR 300 MG CAP (OMNICEF) PO SCH (21:00)
[2021-12-05] MEDS ORDERED: AZITHROMYCIN 250MG TABLET PO SCH (09:00)
[2021-12-05 16:08] LABS: BODY FLUID CULTURE Not indicated. (.); LEGIONELLA ANTIGEN URINE Negative (Negative); ORGANISM ID Not indicated. (.); SPECIMEN SOURCE Urine (.); URINE STREP PNEUMONIAE ANTIGEN Negative (Negative)
== END 2021-12-04 17:05 | disposition home health service (06) | DRG 871 ==
LOC: M ED 00:03 → M ED INP 05:11 → M PCU 13:33 → M MS4PR 12-03 19:32
PROVIDERS: ADMIT Internal Medicine; ATTEND Family Medicine
PROC: 30233N0 Transfusion of Autologous Red Blood Cells into Peripheral Vein, Percutaneous Approach (ICD-10-PCS; principal; 2021-12-01)
DX: A41.9 Sepsis, unspecified organism (principal); J96.01 Acute respiratory failure with hypoxia; J18.9 Pneumonia, unspecified organism; N18.30 Chronic kidney disease, stage 3 unspecified; J45.909 Unspecified asthma, uncomplicated; I25.10 Atherosclerotic heart disease of native coronary artery without angina pectoris; D63.8 Anemia in other chronic diseases classified elsewhere; K21.9 Gastro-esophageal reflux disease without esophagitis; G47.33 Obstructive sleep apnea (adult) (pediatric); I12.9 Hypertensive chronic kidney disease with stage 1 through stage 4 chronic kidney disease, or unspecified chronic kidney disease; D50.0 Iron deficiency anemia secondary to blood loss (chronic); E78.5 Hyperlipidemia, unspecified; E87.5 Hyperkalemia; Z95.2 Presence of prosthetic heart valve; F17.210 Nicotine dependence, cigarettes, uncomplicated; Z66 Do not resuscitate; Z79.82 Long term (current) use of aspirin; Z79.899 Other long term (current) drug therapy

== ENCOUNTER 2022-01-02 17:15 | Inpatient (IN) | payer MEDICARE ==
[~2022-01-02] VITALS: Ht 175.3 cm; Wt 117.3 kg
[~2022-01-02 17:15] MED LIST changes: +ATOR80TA59 PO; +AZIT-12 PO; +CARA1TAB6 PO; +CARV3.12 PO; +CEFD300C41 PO; +CEFD300CAP PO; +CLOP75TA2 PO; +FERR1TAB8 PO; +PROT1TAB2 PO; +med rec comment
[2022-01-02 19:05] LABS: BASO % 0.1 % (0.0-1.0); EOS # 0.1 10^3/uL (0.0-0.5); EOS % 0.7 % (0.0-3.0); HEMATOCRIT 29.7 % (42.0-52.0); HEMOGLOBIN 9.1 g/dl (13.5-17.5); LYMPH # 0.5 10^3/uL (1.5-5.0); LYMPH % 5.1 % (24.0-44.0); MEAN CORPUSCULAR HEMOGLOBIN 31.6 pg (27.0-33.0); MEAN CORPUSCULAR HGB CONC 30.6 g/dl (32.0-36.5); MEAN CORPUSCULAR VOLUME 103.1 fl (80.0-96.0); MONO % 11.4 % (2.0-8.0); NEUTROPHILS # 7.4 10^3/uL (1.5-8.5); NEUTROPHILS % 81.2 % (36.0-66.0); RED BLOOD COUNT 2.88 10^6/uL (4.30-6.10); WHITE BLOOD COUNT 9.2 10^3/uL (4.0-10.0)
[2022-01-02 19:07] LABS: PLATELET COUNT, AUTOMATED 73 10^3/uL (150-450)
[2022-01-02 19:27] LABS: CK-MB VALUE MASS 1.5 NG/ML (<3.6); MB/CK RELATIVE INDEX 1.69 (< OR =4)
[2022-01-02 19:29] LABS: RSV AMPLIFICATION NEGATIVE (NEGATIVE)
[2022-01-02] MEDS ORDERED: MORPHINE 4 MG/ML 1ML VIAL/SYRINGE IV PRN (19:55)
[2022-01-02] MEDS ORDERED: ONDANSETRON 4MG/2ML VIAL IV ONE (19:55)
[2022-01-02] MEDS ORDERED: ISOVUE-370 76% 100ML VIAL As Ordered ONE (20:25)
[2022-01-02 21:39] LABS: ALBUMIN 3.7 GM/DL (3.2-5.2); BILIRUBIN,DIRECT 0.3 MG/DL (0.0-0.2); BILIRUBIN,TOTAL 2.2 MG/DL (0.2-1.0); THYROID STIMULATING HORMONE 0.523 uIU/ML (0.358-3.740); TOTAL PROTEIN 8.2 GM/DL (6.4-8.2)
[2022-01-02 22:27] LABS: CK-MB VALUE MASS 1.3 NG/ML (<3.6); MB/CK RELATIVE INDEX 1.69 (< OR =4)
[2022-01-03] MEDS ORDERED: guaiFENesin DM LIQ 10ML UD PO PRN (01:45)
[2022-01-03] MEDS ORDERED: NS 1,000 ML IV ONE (01:45)
[2022-01-03] MEDS ORDERED: hydrALAZINE 20MG/ML 1ML VIAL (J0360 PER 20MG) IV ONE (01:55)
[2022-01-03] MEDS ORDERED: REMDESIVIR 200 MG in NS 250 ML IV ONE (02:30)
[2022-01-03 02:45] VITALS: BP 137/64
[2022-01-03 04:00] VITALS: BP 132/63
[2022-01-03] MEDS ORDERED: COMBIVENT RESPIMAT 100-20MCG INHALER 4GM INH PRN (04:05)
[2022-01-03] MEDS ORDERED: SODIUM CHLORIDE 0.9% INJ 10 ML SYR IV ONE (04:30)
[2022-01-03 06:22] LABS: BASO % 0.4 % (0.0-1.0); EOS % 0.4 % (0.0-3.0); HEMATOCRIT 27.2 % (42.0-52.0); HEMOGLOBIN 8.2 g/dl (13.5-17.5); LYMPH # 1.1 10^3/uL (1.5-5.0); LYMPH % 13.7 % (24.0-44.0); MEAN CORPUSCULAR HEMOGLOBIN 30.6 pg (27.0-33.0); MEAN CORPUSCULAR HGB CONC 30.1 g/dl (32.0-36.5); MEAN CORPUSCULAR VOLUME 101.5 fl (80.0-96.0); MONO % 21.4 % (2.0-8.0); NEUTROPHILS % 61.7 % (36.0-66.0); RED BLOOD COUNT 2.68 10^6/uL (4.30-6.10)
[2022-01-03] MEDS ORDERED: GABA-282 PO (06:31)
[2022-01-03] MEDS ORDERED: PATIENT COMMENT (06:31)
[2022-01-03] MEDS ORDERED: CARV3.12 PO (06:31)
[2022-01-03] MEDS ORDERED: ALBU8.5H INH (06:31)
[2022-01-03] MEDS ORDERED: FERR1TAB8 PO (06:31)
[2022-01-03] MEDS ORDERED: ADVA230A INH (06:31)
[2022-01-03] MEDS ORDERED: PANT-23 PO (06:32)
[2022-01-03 06:43] LABS: BLOOD UREA NITROGEN 24 MG/DL (7-18); CARBON DIOXIDE LEVEL 23 MEQ/L (21-32); CHLORIDE LEVEL 106 MEQ/L (98-107); GLOMERULAR FILTRATION RATE > 60.0 (>42); GLUCOSE, FASTING 97 MG/DL (70-100); POTASSIUM SERUM 4.3 MEQ/L (3.5-5.1); SODIUM LEVEL 137 MEQ/L (136-145)
[2022-01-03 06:44] LABS: ALBUMIN 3.2 GM/DL (3.2-5.2); ALT/SGPT 27 U/L (12-78); BILIRUBIN,DIRECT 0.4 MG/DL (0.0-0.2); BILIRUBIN,TOTAL 1.8 MG/DL (0.2-1.0); CALCIUM LEVEL 8.4 MG/DL (8.8-10.2); MAGNESIUM LEVEL 2.3 MG/DL (1.8-2.4); TOTAL PROTEIN 7.2 GM/DL (6.4-8.2)
[2022-01-03 07:00] LABS: MONO # 1.7 10^3/uL (0.0-0.8); PLATELET COUNT, AUTOMATED 58 10^3/uL (150-450)
[2022-01-03] MEDS: dexameTHASONE 20MG/5ML VIAL (J1100 PER 1MG) IV SCH (10:19)
[2022-01-03] MEDS: ENOXAPARIN 40MG/0.4ML SYRINGE (J1650 PER 10MG) SC SCH (10:20)
[2022-01-03] MEDS ORDERED: NITROGLYCERIN 0.4 MG SUBL TABLET SL PRN (14:40)
[2022-01-03] MEDS ORDERED: VANCOMYCIN HCL 1,000 MG, VIAL MATE ADAPTER 1 EACH in NS 250 ML IV SCH (16:55)
[2022-01-03] MEDS: CLOPIDOGREL 75 MG TAB PO SCH (17:16)
[2022-01-03] MEDS: FERROUS SULFATE 325MG TAB PO SCH (17:16)
[2022-01-03] MEDS: TORSEMIDE 20 MG TAB PO SCH (17:16)
[2022-01-03] MEDS: ASPIRIN 81MG ENTERIC TABLET PO SCH (17:16)
[2022-01-03] MEDS ORDERED: VANCOMYCIN HCL 1,000 MG, VIAL MATE ADAPTER 1 EACH in NS 250 ML IV ONE (18:00)
[2022-01-03] MEDS ORDERED: VANCOMYCIN HCL 750 MG, VIAL MATE ADAPTER 1 EACH in NS 250 ML IV ONE (19:00)
[2022-01-03 20:00] VITALS: BP 140/62
[2022-01-03] MEDS: ATORVASTATIN 20 MG TAB PO SCH (20:34)
[2022-01-03] MEDS: PANTOPRAZOLE 40MG TAB (PROTONIX) PO SCH (20:34)
[2022-01-03] MEDS: GABAPENTIN 300 MG CAP PO SCH (20:34)
[2022-01-03] MEDS: CARVedilol 3.125 MG TAB PO SCH (20:35)
[2022-01-03] MEDS: REMDESIVIR 100 MG in NS 250 ML IV SCH (21:22)
[2022-01-03] MEDS: SODIUM CHLORIDE 0.9% INJ 10 ML SYR IV SCH (22:30)
[2022-01-04] MEDS: ACETAMINOPHEN TAB 650MG DOSE (2X325MG) PO PRN (00:58)
[2022-01-04] MEDS ORDERED: VANCOMYCIN HCL 750 MG, VIAL MATE ADAPTER 1 EACH in NS 250 ML IV SCH ×2 (02:00→03:00)
[2022-01-04 04:39] VITALS: BP 124/61
[2022-01-04 08:12] LABS: HEMATOCRIT 24.8 % (42.0-52.0); HEMOGLOBIN 7.5 g/dl (13.5-17.5); MEAN CORPUSCULAR HEMOGLOBIN 30.7 pg (27.0-33.0); MEAN CORPUSCULAR HGB CONC 30.2 g/dl (32.0-36.5); MEAN CORPUSCULAR VOLUME 101.6 fl (80.0-96.0); RED BLOOD COUNT 2.44 10^6/uL (4.30-6.10); WHITE BLOOD COUNT 5.4 10^3/uL (4.0-10.0)
[2022-01-04 08:14] LABS: PLATELET COUNT, AUTOMATED 55 10^3/uL (150-450)
[2022-01-04 08:20] LABS: INR 1.26; PROTHROMBIN TIME 16.2 SECONDS (12.7-14.5)
[2022-01-04 08:21] LABS: PARTIAL THROMBOPLASTIN TIME 38.8 SECONDS (25.9-37.0)
[2022-01-04 08:44] LABS: ATYPICAL LYMPH 1 % (0-5); LYMPHOCYTES 9 % (16-44); METAMYELOCYTES 1 % (0-0); MONOCYTES 16 % (0-5); MYELOCYTES 5 % (0-0); NEUTROPHILS 63 % (28-66)
[2022-01-04 08:45] LABS: PLATELET ESTIMATE DECREASED (NORMAL)
[2022-01-04 08:46] LABS: ALBUMIN 3.1 GM/DL (3.2-5.2); BILIRUBIN,DIRECT 0.4 MG/DL (0.0-0.2); CALCIUM LEVEL 8.2 MG/DL (8.8-10.2); CREATININE FOR GFR 1.34 MG/DL (0.70-1.30); MAGNESIUM LEVEL 2.2 MG/DL (1.8-2.4); MICROCYTOSIS 1+; POLYCHROMASIA 1+; POTASSIUM SERUM 4.2 MEQ/L (3.5-5.1); TOTAL PROTEIN 6.6 GM/DL (6.4-8.2)
[2022-01-04 08:47] LABS: OVALOCYTES 1+; TEAR DROP CELLS 1+
[2022-01-04] MEDS: ENOXAPARIN 40MG/0.4ML SYRINGE (J1650 PER 10MG) SC SCH (09:00)
[2022-01-04 09:11] LABS: C REACTIVE PROTEIN QUANTITATIV 6.17 MG/DL (0.00-0.30)
[2022-01-04] MEDS: TORSEMIDE 20 MG TAB PO SCH (09:20)
[2022-01-04] MEDS: CARVedilol 3.125 MG TAB PO SCH ×2 (09:21→21:51)
[2022-01-04] MEDS: CLOPIDOGREL 75 MG TAB PO SCH (09:21)
[2022-01-04] MEDS: ASPIRIN 81MG ENTERIC TABLET PO SCH (09:21)
[2022-01-04] MEDS: dexameTHASONE 20MG/5ML VIAL (J1100 PER 1MG) IV SCH (09:23)
[2022-01-04] MEDS: FERROUS SULFATE 325MG TAB PO SCH (09:27)
[2022-01-04 14:00] VITALS: BP 139/63
[2022-01-04 16:49] LABS: HEMATOCRIT 27.3 % (42.0-52.0); HEMOGLOBIN 8.2 g/dl (13.5-17.5)
[2022-01-04 17:21] LABS: PERCENT SATURATION 23.3 % (19.7-50.0)
[2022-01-04 17:44] LABS: FOLATE 20.7 NG/ML (>5.4)
[2022-01-04 20:00] VITALS: BP 146/62
[2022-01-04] MEDS: GABAPENTIN 300 MG CAP PO SCH (21:50)
[2022-01-04] MEDS: PANTOPRAZOLE 40MG TAB (PROTONIX) PO SCH (21:50)
[2022-01-04] MEDS: REMDESIVIR 100 MG in NS 250 ML IV SCH (21:51)
[2022-01-04] MEDS: ATORVASTATIN 20 MG TAB PO SCH (21:51)
[2022-01-04] MEDS: SODIUM CHLORIDE 0.9% INJ 10 ML SYR IV SCH (23:39)
[2022-01-05] MEDS: ACETAMINOPHEN TAB 650MG DOSE (2X325MG) PO PRN (00:40)
[2022-01-05 04:28] VITALS: BP 146/67
[2022-01-05 08:48] LABS: HEMATOCRIT 26.8 % (42.0-52.0); MEAN CORPUSCULAR HEMOGLOBIN 30.9 pg (27.0-33.0); MEAN CORPUSCULAR HGB CONC 29.9 g/dl (32.0-36.5); MEAN CORPUSCULAR VOLUME 103.5 fl (80.0-96.0); RED BLOOD COUNT 2.59 10^6/uL (4.30-6.10); WHITE BLOOD COUNT 5.6 10^3/uL (4.0-10.0)
[2022-01-05 08:49] LABS: PLATELET COUNT, AUTOMATED 58 10^3/uL (150-450)
[2022-01-05 09:08] LABS: BLOOD UREA NITROGEN 37 MG/DL (7-18); CALCIUM LEVEL 8.6 MG/DL (8.8-10.2); CARBON DIOXIDE LEVEL 24 MEQ/L (21-32); CHLORIDE LEVEL 110 MEQ/L (98-107); CREATININE FOR GFR 1.21 MG/DL (0.70-1.30); GLOMERULAR FILTRATION RATE > 60.0 (>42); GLUCOSE, FASTING 88 MG/DL (70-100); MAGNESIUM LEVEL 2.3 MG/DL (1.8-2.4); POTASSIUM SERUM 3.9 MEQ/L (3.5-5.1); SODIUM LEVEL 140 MEQ/L (136-145)
[2022-01-05 09:31] LABS: ATYPICAL LYMPH 1 % (0-5); LYMPHOCYTES 17 % (16-44); METAMYELOCYTES 2 % (0-0); MONOCYTES 9 % (0-5); MYELOCYTES 3 % (0-0); NEUTROPHILS 66 % (28-66)
[2022-01-05 09:32] LABS: PLATELET ESTIMATE MARKED DECREASE (NORMAL)
[2022-01-05 09:33] LABS: ANISOCYTOSIS 3+; POLYCHROMASIA 1+
[2022-01-05 09:34] LABS: POIKILOCYTOSIS 1+; TEAR DROP CELLS 1+
[2022-01-05 09:44] VITALS: BP 125/64
[2022-01-05] MEDS: TORSEMIDE 20 MG TAB PO SCH (09:48)
[2022-01-05] MEDS: CLOPIDOGREL 75 MG TAB PO SCH (09:48)
[2022-01-05] MEDS: ENOXAPARIN 40MG/0.4ML SYRINGE (J1650 PER 10MG) SC SCH (09:48)
[2022-01-05] MEDS: FERROUS SULFATE 325MG TAB PO SCH (09:48)
[2022-01-05] MEDS: CARVedilol 3.125 MG TAB PO SCH ×2 (09:48→20:17)
[2022-01-05] MEDS: ASPIRIN 81MG ENTERIC TABLET PO SCH (09:48)
[2022-01-05] MEDS: dexameTHASONE 20MG/5ML VIAL (J1100 PER 1MG) IV SCH (09:49)
[2022-01-05 14:00] VITALS: BP 138/63
[2022-01-05 19:20] VITALS: BP 160/72
[2022-01-05] MEDS: PANTOPRAZOLE 40MG TAB (PROTONIX) PO SCH (20:17)
[2022-01-05] MEDS: GABAPENTIN 300 MG CAP PO SCH (20:17)
[2022-01-05] MEDS: ATORVASTATIN 20 MG TAB PO SCH (20:18)
[2022-01-05] MEDS: REMDESIVIR 100 MG in NS 250 ML IV SCH (22:14)
[2022-01-05] MEDS: SODIUM CHLORIDE 0.9% INJ 10 ML SYR IV SCH (23:00)
[2022-01-06 04:38] VITALS: BP 166/74
[2022-01-06 07:15] LABS: HEMOGLOBIN 8.6 g/dl (13.5-17.5); MEAN CORPUSCULAR HEMOGLOBIN 30.7 pg (27.0-33.0); MEAN CORPUSCULAR HGB CONC 29.7 g/dl (32.0-36.5); MEAN CORPUSCULAR VOLUME 103.6 fl (80.0-96.0)
[2022-01-06 07:20] LABS: PLATELET COUNT, AUTOMATED 78 10^3/uL (150-450)
[2022-01-06 07:30] LABS: INR 1.22; PROTHROMBIN TIME 15.8 SECONDS (12.7-14.5)
[2022-01-06 07:31] LABS: PARTIAL THROMBOPLASTIN TIME 34.1 SECONDS (25.9-37.0)
[2022-01-06 07:35] LABS: ALBUMIN 3.3 GM/DL (3.2-5.2); BILIRUBIN,DIRECT 0.4 MG/DL (0.0-0.2); BILIRUBIN,TOTAL 1.5 MG/DL (0.2-1.0); CALCIUM LEVEL 8.2 MG/DL (8.8-10.2); CREATININE FOR GFR 1.39 MG/DL (0.70-1.30); GLOMERULAR FILTRATION RATE 52.7 (>42); MAGNESIUM LEVEL 2.2 MG/DL (1.8-2.4)
[2022-01-06 08:06] LABS: ATYPICAL LYMPH 1 % (0-5); LYMPHOCYTES 20 % (16-44); METAMYELOCYTES 4 % (0-0); MONOCYTES 12 % (0-5); MYELOCYTES 6 % (0-0); NEUTROPHILS 54 % (28-66)
[2022-01-06 08:07] LABS: ANISOCYTOSIS 3+; PLATELET ESTIMATE DECREASED (NORMAL); POLYCHROMASIA 1+
[2022-01-06 08:08] LABS: POIKILOCYTOSIS 1+; SCHISTOCYTES 1+; TEAR DROP CELLS 1+
[2022-01-06] MEDS: TORSEMIDE 20 MG TAB PO SCH (09:06)
[2022-01-06] MEDS: FERROUS SULFATE 325MG TAB PO SCH (09:06)
[2022-01-06] MEDS: CARVedilol 3.125 MG TAB PO SCH ×2 (09:07→20:16)
[2022-01-06] MEDS: CLOPIDOGREL 75 MG TAB PO SCH (09:07)
[2022-01-06] MEDS: ENOXAPARIN 40MG/0.4ML SYRINGE (J1650 PER 10MG) SC SCH (09:07)
[2022-01-06] MEDS: dexameTHASONE 20MG/5ML VIAL (J1100 PER 1MG) IV SCH (09:07)
[2022-01-06] MEDS: ASPIRIN 81MG ENTERIC TABLET PO SCH (09:17)
[2022-01-06] MEDS: GABAPENTIN 300 MG CAP PO SCH (20:13)
[2022-01-06] MEDS: PANTOPRAZOLE 40MG TAB (PROTONIX) PO SCH (20:14)
[2022-01-06] MEDS: ATORVASTATIN 20 MG TAB PO SCH (20:14)
[2022-01-06] MEDS: REMDESIVIR 100 MG in NS 250 ML IV SCH (21:28)
[2022-01-06] MEDS: SODIUM CHLORIDE 0.9% INJ 10 ML SYR IV SCH (23:00)
[2022-01-06] MEDS: ACETAMINOPHEN TAB 650MG DOSE (2X325MG) PO PRN (23:42)
[2022-01-07 04:00] VITALS: BP 145/67
[2022-01-07 06:30] LABS: HEMATOCRIT 27.9 % (42.0-52.0); HEMOGLOBIN 8.6 g/dl (13.5-17.5); MEAN CORPUSCULAR HEMOGLOBIN 31.5 pg (27.0-33.0); MEAN CORPUSCULAR HGB CONC 30.8 g/dl (32.0-36.5); MEAN CORPUSCULAR VOLUME 102.2 fl (80.0-96.0); RED BLOOD COUNT 2.73 10^6/uL (4.30-6.10); WHITE BLOOD COUNT 7.1 10^3/uL (4.0-10.0)
[2022-01-07 06:33] LABS: PLATELET COUNT, AUTOMATED 86 10^3/uL (150-450)
[2022-01-07 06:49] LABS: CALCIUM LEVEL 8.5 MG/DL (8.8-10.2); CREATININE FOR GFR 1.32 MG/DL (0.70-1.30); MAGNESIUM LEVEL 2.2 MG/DL (1.8-2.4); POTASSIUM SERUM 3.9 MEQ/L (3.5-5.1)
[2022-01-07 07:13] LABS: LYMPHOCYTES 16 % (16-44); METAMYELOCYTES 3 % (0-0); MONOCYTES 10 % (0-5); MYELOCYTES 6 % (0-0); NEUTROPHILS 65 % (28-66)
[2022-01-07 07:14] LABS: ANISOCYTOSIS 3+; PLATELET ESTIMATE DECREASED (NORMAL)
[2022-01-07] MEDS: ASPIRIN 81MG ENTERIC TABLET PO SCH (09:31)
[2022-01-07] MEDS: FERROUS SULFATE 325MG TAB PO SCH (09:31)
[2022-01-07] MEDS: CLOPIDOGREL 75 MG TAB PO SCH (09:31)
[2022-01-07] MEDS: TORSEMIDE 20 MG TAB PO SCH (09:31)
[2022-01-07] MEDS: dexameTHASONE 20MG/5ML VIAL (J1100 PER 1MG) IV SCH (09:35)
[2022-01-07] MEDS: ENOXAPARIN 40MG/0.4ML SYRINGE (J1650 PER 10MG) SC SCH (09:35)
[2022-01-07] MEDS: CARVedilol 3.125 MG TAB PO SCH ×2 (09:35→21:23)
[2022-01-07] MEDS: GABAPENTIN 300 MG CAP PO SCH (21:20)
[2022-01-07] MEDS: PANTOPRAZOLE 40MG TAB (PROTONIX) PO SCH (21:21)
[2022-01-07] MEDS: ATORVASTATIN 20 MG TAB PO SCH (21:21)
[2022-01-07] MEDS: SODIUM CHLORIDE 0.9% INJ 10 ML SYR IV SCH (23:00)
[2022-01-08 04:58] VITALS: BP 168/77
[2022-01-08 07:04] LABS: INR 1.19; PROTHROMBIN TIME 15.5 SECONDS (12.7-14.5)
[2022-01-08 07:05] LABS: PARTIAL THROMBOPLASTIN TIME 33.7 SECONDS (25.9-37.0)
[2022-01-08 07:17] LABS: ALBUMIN 3.2 GM/DL (3.2-5.2); BILIRUBIN,DIRECT 0.3 MG/DL (0.0-0.2); BILIRUBIN,TOTAL 1.4 MG/DL (0.2-1.0); TOTAL PROTEIN 7.2 GM/DL (6.4-8.2)
[2022-01-08] MEDS: dexameTHASONE 20MG/5ML VIAL (J1100 PER 1MG) IV SCH (08:29)
[2022-01-08] MEDS: ASPIRIN 81MG ENTERIC TABLET PO SCH (08:32)
[2022-01-08] MEDS: CLOPIDOGREL 75 MG TAB PO SCH (08:32)
[2022-01-08] MEDS: TORSEMIDE 20 MG TAB PO SCH (08:33)
[2022-01-08] MEDS: FERROUS SULFATE 325MG TAB PO SCH (08:33)
[2022-01-08] MEDS: CARVedilol 3.125 MG TAB PO SCH ×2 (08:33→20:40)
[2022-01-08] MEDS: ENOXAPARIN 40MG/0.4ML SYRINGE (J1650 PER 10MG) SC SCH (08:34)
[2022-01-08] MEDS: PANTOPRAZOLE 40MG TAB (PROTONIX) PO SCH (20:40)
[2022-01-08] MEDS: ATORVASTATIN 20 MG TAB PO SCH (20:40)
[2022-01-08] MEDS: GABAPENTIN 300 MG CAP PO SCH (20:40)
[2022-01-09 04:00] VITALS: BP 163/72
[2022-01-09 06:17] LABS: HEMATOCRIT 29.2 % (42.0-52.0); HEMOGLOBIN 8.6 g/dl (13.5-17.5); MEAN CORPUSCULAR HEMOGLOBIN 29.6 pg (27.0-33.0); MEAN CORPUSCULAR HGB CONC 29.5 g/dl (32.0-36.5); MEAN CORPUSCULAR VOLUME 100.3 fl (80.0-96.0); PLATELET COUNT, AUTOMATED 104 10^3/uL (150-450); RED BLOOD COUNT 2.91 10^6/uL (4.30-6.10); WHITE BLOOD COUNT 10.2 10^3/uL (4.0-10.0)
[2022-01-09 06:43] LABS: ALBUMIN 3.2 GM/DL (3.2-5.2); BILIRUBIN,TOTAL 1.3 MG/DL (0.2-1.0); CALCIUM LEVEL 8.6 MG/DL (8.8-10.2); CREATININE FOR GFR 1.25 MG/DL (0.70-1.30); GLOMERULAR FILTRATION RATE 59.6 (>42); POTASSIUM SERUM 3.9 MEQ/L (3.5-5.1); TOTAL PROTEIN 7.2 GM/DL (6.4-8.2)
[2022-01-09] MEDS: TORSEMIDE 20 MG TAB PO SCH (08:55)
[2022-01-09] MEDS: FERROUS SULFATE 325MG TAB PO SCH (08:55)
[2022-01-09] MEDS: CLOPIDOGREL 75 MG TAB PO SCH (08:55)
[2022-01-09] MEDS: ASPIRIN 81MG ENTERIC TABLET PO SCH (08:55)
[2022-01-09] MEDS: dexameTHASONE 20MG/5ML VIAL (J1100 PER 1MG) IV SCH (08:56)
[2022-01-09] MEDS: ENOXAPARIN 40MG/0.4ML SYRINGE (J1650 PER 10MG) SC SCH (08:56)
[2022-01-09] MEDS: CARVedilol 3.125 MG TAB PO SCH ×2 (08:57→21:00)
[2022-01-09] MEDS: GABAPENTIN 300 MG CAP PO SCH (20:25)
[2022-01-09] MEDS: ATORVASTATIN 20 MG TAB PO SCH (20:26)
[2022-01-09] MEDS: PANTOPRAZOLE 40MG TAB (PROTONIX) PO SCH (20:26)
[2022-01-09 21:00] VITALS: BP 125/61
[2022-01-10 04:00] VITALS: BP 139/67
[2022-01-10] MEDS: CARVedilol 3.125 MG TAB PO SCH (09:00)
[2022-01-10] MEDS: FERROUS SULFATE 325MG TAB PO SCH (09:43)
[2022-01-10] MEDS: TORSEMIDE 20 MG TAB PO SCH (09:43)
[2022-01-10] MEDS: CLOPIDOGREL 75 MG TAB PO SCH (09:43)
[2022-01-10] MEDS: ASPIRIN 81MG ENTERIC TABLET PO SCH (09:43)
[2022-01-10] MEDS: dexameTHASONE 20MG/5ML VIAL (J1100 PER 1MG) IV SCH (09:43)
[2022-01-10] MEDS: ENOXAPARIN 40MG/0.4ML SYRINGE (J1650 PER 10MG) SC SCH (09:44)
== END 2022-01-10 12:23 | disposition home health service (06) | DRG 178 ==
LOC: M ED 17:15 → EDBD 17:15 → M ED INP 23:54 → ENRESERVTM 01-03 00:29 → ENRESERVDT 01-03 00:29 → M 4MAIN 01-03 02:34
PROVIDERS: ADMIT Family Medicine; ATTEND Internal Medicine
DX: U07.1 COVID-19 (principal); D61.818 Other pancytopenia; E87.2 Acidosis; I10 Essential (primary) hypertension; J44.9 Chronic obstructive pulmonary disease, unspecified; G47.33 Obstructive sleep apnea (adult) (pediatric); K21.9 Gastro-esophageal reflux disease without esophagitis; I25.10 Atherosclerotic heart disease of native coronary artery without angina pectoris; Z86.73 Personal history of transient ischemic attack (TIA), and cerebral infarction without residual deficits; Z91.19 Patient's noncompliance with other medical treatment and regimen; G62.9 Polyneuropathy, unspecified; Z79.82 Long term (current) use of aspirin; Z79.899 Other long term (current) drug therapy; Z95.2 Presence of prosthetic heart valve; Z87.891 Personal history of nicotine dependence

== ENCOUNTER → 2022-06-09 | Outpatient (CLI) | payer MEDICARE ==
[~2022-06-09] MED LIST changes: +ALBU2.5V10 NEB; +ALBU8.5H INH; -ALBU83IN NEB; +GABA-282 PO; +PANT-23 PO; +PATIENT COMMENT; +VITATAB73 PO
== END ==
LOC: M LABSMTC 10:10
PROVIDERS: ATTEND Anesthesiology
DX: Z01.812 Encounter for preprocedural laboratory examination (principal); Z20.822 Contact with and (suspected) exposure to COVID-19

== ENCOUNTER 2022-06-12 07:46 | Day surgery (SDC) | payer MEDICARE ==
[~2022-06-12] VITALS: Ht 175.3 cm; Wt 109.8 kg
[~2022-06-12 07:46] MED LIST changes: +NS 1,000 ML IV ONE
[2022-06-12] MEDS ORDERED: fentaNYL 100 MCG/2 ML INJECTION As Ordered ONE (08:17)
[2022-06-12] MEDS ORDERED: LIDOCAINE 2% 100MG/5ML SDV (FOR ANES.) As Ordered ONE (08:22)
[2022-06-12] MEDS ORDERED: propofoL 200 MG/20 ML VIAL As Ordered ONE ×3 (08:22→09:18)
[2022-06-12 10:10] VITALS: BP 154/65
== END 2022-06-12 10:00 | disposition home or self-care (01) ==
LOC: M OPP 07:46
PROVIDERS: ATTEND Surgery
DX: D12.3 Benign neoplasm of transverse colon (principal); K64.0 First degree hemorrhoids; Z85.038 Personal history of other malignant neoplasm of large intestine; Z08 Encounter for follow-up examination after completed treatment for malignant neoplasm; Z80.0 Family history of malignant neoplasm of digestive organs; Z79.02 Long term (current) use of antithrombotics/antiplatelets; Z79.51 Long term (current) use of inhaled steroids; Z79.82 Long term (current) use of aspirin; Z79.899 Other long term (current) drug therapy; J45.909 Unspecified asthma, uncomplicated; I10 Essential (primary) hypertension; I25.2 Old myocardial infarction; G47.30 Sleep apnea, unspecified; Z99.89 Dependence on other enabling machines and devices; Z95.5 Presence of coronary angioplasty implant and graft
CPT/HCPCS: 45380; 88305; J3010

== ENCOUNTER → 2022-07-01 | Outpatient (CLI) | payer MEDICARE ==
[~2022-07-01] MED LIST changes: -NS 1,000 ML IV ONE
== END ==
LOC: M RAD 12:20
PROVIDERS: ATTEND Nurse Practitioner Family
DX: R91.8 Other nonspecific abnormal finding of lung field (principal)

== ENCOUNTER 2022-12-17 14:26 | Emergency (ER) | payer MEDICARE, MEDICAID ==
[~2022-12-17] VITALS: Ht 175.3 cm; Wt 104.5 kg
[2022-12-17] MEDS ORDERED: traMADol 50 MG TAB PO ONE (14:40)
[2022-12-17 16:11] VITALS: BP 138/58
[2022-12-17] MEDS ORDERED: TRAM50TA2 PO (16:43)
[2022-12-17] MEDS ORDERED: BACI28.43 TOP (16:45)
[2022-12-17] MEDS ORDERED: BOOSTRIX/ADACEL VACCINE (DIPHTH/PERTUSS/ACELL/TETANUS) 0.5ML SYR IM.IMMUN ONE (16:50)
== END 2022-12-17 16:45 | disposition home or self-care (01) ==
LOC: EDBD 14:26 → M ED 14:26
DX: S20.219A Contusion of unspecified front wall of thorax, initial encounter (principal); S70.00XA Contusion of unspecified hip, initial encounter; X58.XXXA Exposure to other specified factors, initial encounter; Y92.89 Other specified places as the place of occurrence of the external cause; Y93.89 Activity, other specified; Y99.8 Other external cause status; J44.9 Chronic obstructive pulmonary disease, unspecified; D64.9 Anemia, unspecified; E78.5 Hyperlipidemia, unspecified; G47.33 Obstructive sleep apnea (adult) (pediatric); G90.09 Other idiopathic peripheral autonomic neuropathy; Z86.73 Personal history of transient ischemic attack (TIA), and cerebral infarction without residual deficits; F17.200 Nicotine dependence, unspecified, uncomplicated; Z79.82 Long term (current) use of aspirin; Z79.51 Long term (current) use of inhaled steroids; Z79.899 Other long term (current) drug therapy

== ENCOUNTER 2022-12-30 16:54 | Inpatient (IN) | payer MEDICARE, MEDICAID ==
[~2022-12-30] VITALS: Ht 172.7 cm; Wt 104.5 kg
[~2022-12-30 16:54] MED LIST changes: +ALBU2.5V10 INH; -ALBU2.5V10 NEB; +BACI28.43 TOP; +TRAM50TA2 PO
[2022-12-30] MEDS ORDERED: ALBUTEROL SULFATE 2.5MG/0.5ML INH NEB SOLN INH ONE (17:50)
[2022-12-30] MEDS ORDERED: IPRATROPIUM 0.5MG/ALBUTEROL 2.5MG INH SOL UD 3ML (DUONEB) NEB ONE (17:50)
[2022-12-30 17:55] LABS: BASO % 0.4 % (0.0-1.0); EOS % 0.4 % (0.0-3.0); HEMATOCRIT 31.7 % (42.0-52.0); HEMOGLOBIN 9.6 g/dl (13.5-17.5); LYMPH # 1.4 10^3/uL (1.5-5.0); LYMPH % 19.3 % (24.0-44.0); MEAN CORPUSCULAR HEMOGLOBIN 29.3 pg (27.0-33.0); MEAN CORPUSCULAR HGB CONC 30.3 g/dl (32.0-36.5); MEAN CORPUSCULAR VOLUME 96.6 fl (80.0-96.0); MONO # 1.3 10^3/uL (0.0-0.8); MONO % 17.6 % (2.0-8.0); NEUTROPHILS # 4.4 10^3/uL (1.5-8.5); NEUTROPHILS % 60.8 % (36.0-66.0); RED BLOOD COUNT 3.28 10^6/uL (4.30-6.10); WHITE BLOOD COUNT 7.3 10^3/uL (4.0-10.0)
[2022-12-30 17:57] LABS: PLATELET COUNT, AUTOMATED 93 10^3/uL (150-450)
[2022-12-30 18:16] LABS: CALCIUM LEVEL 8.7 MG/DL (8.3-10.6); CREATININE FOR GFR 1.41 MG/DL (0.70-1.30); GLOMERULAR FILTRATION RATE 51.8 (>42); POTASSIUM SERUM 4.2 MMOL/L (3.5-5.1)
[2022-12-30 19:28] LABS: ALBUMIN 3.7 G/DL (3.2-5.2); BILIRUBIN,DIRECT 0.6 MG/DL (<0.4); BILIRUBIN,TOTAL 1.4 MG/DL (0.3-1.2); MB/CK RELATIVE INDEX 2.94 (< OR =4)
[2022-12-30] MEDS ORDERED: ISOVUE-370 76% 100ML VIAL As Ordered ONE (19:31)
[2022-12-30 19:51] LABS: INR 1.06
[2022-12-30 20:21] LABS: CK-MB VALUE MASS 3.4 NG/ML (<3.6)
[2022-12-30 20:28] LABS: MB/CK RELATIVE INDEX 2.8 (< OR =4)
[2022-12-30] MEDS ORDERED: cefTRIAXone SOD 2 GM in D5W MINI-BAG PLUS 50 ML IV ONE (21:40)
[2022-12-30] MEDS ORDERED: ACETAMINOPHEN TAB 650MG DOSE (2X325MG) PO PRN (22:40)
[2022-12-30] MEDS ORDERED: FLUT1BLS8 INH (22:41)
[2022-12-30] MEDS ORDERED: PRED10TA2 PO (22:41)
[2022-12-30] MEDS ORDERED: CEFU50TA PO (22:41)
[2022-12-30] MEDS ORDERED: HOME MED LIST COMPLETE! XX SCH (22:45)
[2022-12-30 23:18] VITALS: BP 142/68
[2022-12-30] MEDS ORDERED: NS 1,000 ML IV SCH (23:30)
[2022-12-30] MEDS: IPRATROPIUM 0.5MG/ALBUTEROL 2.5MG INH SOL UD 3ML (DUONEB) NEB SCH (23:44)
[2022-12-30] MEDS: DOXYCYCLINE HYCLATE 100MG TABLET PO SCH (23:49)
[2022-12-30] MEDS: GABAPENTIN 300 MG CAP PO SCH (23:49)
[2022-12-30] MEDS: ATORVASTATIN 20 MG TAB PO SCH (23:49)
[2022-12-30] MEDS: CARVedilol 3.125 MG TAB PO SCH (23:50)
[2022-12-31] MEDS: IPRATROPIUM 0.5MG/ALBUTEROL 2.5MG INH SOL UD 3ML (DUONEB) NEB SCH ×4 (03:32→20:17)
[2022-12-31 05:32] VITALS: BP 126/55
[2022-12-31 06:35] LABS: HEMATOCRIT 30.1 % (42.0-52.0); HEMOGLOBIN 9.2 g/dl (13.5-17.5); MEAN CORPUSCULAR HEMOGLOBIN 29.5 pg (27.0-33.0); MEAN CORPUSCULAR HGB CONC 30.6 g/dl (32.0-36.5); MEAN CORPUSCULAR VOLUME 96.5 fl (80.0-96.0); RED BLOOD COUNT 3.12 10^6/uL (4.30-6.10); WHITE BLOOD COUNT 3.9 10^3/uL (4.0-10.0)
[2022-12-31 06:40] LABS: PLATELET COUNT, AUTOMATED 80 10^3/uL (150-450)
[2022-12-31 07:04] LABS: ALBUMIN 3.3 G/DL (3.2-5.2); CALCIUM LEVEL 8.4 MG/DL (8.3-10.6); CREATININE FOR GFR 1.27 MG/DL (0.70-1.30); GLOMERULAR FILTRATION RATE 58.4 (>42); MAGNESIUM LEVEL 1.8 MG/DL (1.8-2.4); POTASSIUM SERUM 4.4 MMOL/L (3.5-5.1); TOTAL PROTEIN 6.3 G/DL (5.7-8.2)
[2022-12-31] MEDS: ASPIRIN 81MG ENTERIC TABLET PO SCH (08:23)
[2022-12-31] MEDS: DOXYCYCLINE HYCLATE 100MG TABLET PO SCH ×2 (08:23→20:26)
[2022-12-31] MEDS: LACTOBACILLUS ACIDOPHILUS CAP (BACID) PO SCH ×2 (08:23→18:08)
[2022-12-31] MEDS: CARVedilol 3.125 MG TAB PO SCH ×2 (08:24→20:28)
[2022-12-31] MEDS: FERROUS SULFATE 325MG TAB PO SCH (08:25)
[2022-12-31] MEDS: NYSTATIN 100,000 UNITS/GM TOPICAL PWD 15GM TOP SCH ×2 (08:25→20:27)
[2022-12-31] MEDS: guaiFENesin ER 600 MG TAB PO SCH ×2 (08:25→20:26)
[2022-12-31] MEDS: cefTRIAXone SOD 1 GM in D5W MINI-BAG PLUS 50 ML IV SCH (08:26)
[2022-12-31 14:00] VITALS: BP 126/50
[2022-12-31 20:00] VITALS: BP 129/52
[2022-12-31] MEDS: GABAPENTIN 300 MG CAP PO SCH (20:26)
[2022-12-31] MEDS: ATORVASTATIN 20 MG TAB PO SCH (20:26)
[2023-01-01] MEDS: IPRATROPIUM 0.5MG/ALBUTEROL 2.5MG INH SOL UD 3ML (DUONEB) NEB SCH ×4 (04:40→19:25)
[2023-01-01 06:00] VITALS: BP 128/54
[2023-01-01] MEDS: NYSTATIN 100,000 UNITS/GM TOPICAL PWD 15GM TOP SCH ×2 (08:22→20:22)
[2023-01-01] MEDS: FERROUS SULFATE 325MG TAB PO SCH (08:22)
[2023-01-01] MEDS: DOXYCYCLINE HYCLATE 100MG TABLET PO SCH ×2 (08:22→20:22)
[2023-01-01] MEDS: cefTRIAXone SOD 1 GM in D5W MINI-BAG PLUS 50 ML IV SCH (08:22)
[2023-01-01] MEDS: ASPIRIN 81MG ENTERIC TABLET PO SCH (08:23)
[2023-01-01] MEDS: CARVedilol 3.125 MG TAB PO SCH ×2 (08:23→20:22)
[2023-01-01] MEDS: guaiFENesin ER 600 MG TAB PO SCH ×2 (08:23→20:22)
[2023-01-01] MEDS: LACTOBACILLUS ACIDOPHILUS CAP (BACID) PO SCH ×2 (08:23→17:00)
[2023-01-01 12:13] LABS: BASO % 0.3 % (0.0-1.0); EOS % 0.1 % (0.0-3.0); HEMATOCRIT 30.6 % (42.0-52.0); HEMOGLOBIN 9.3 g/dl (13.5-17.5); LYMPH # 1.5 10^3/uL (1.5-5.0); LYMPH % 21.8 % (24.0-44.0); MEAN CORPUSCULAR HEMOGLOBIN 29.9 pg (27.0-33.0); MEAN CORPUSCULAR HGB CONC 30.4 g/dl (32.0-36.5); MEAN CORPUSCULAR VOLUME 98.4 fl (80.0-96.0); MONO # 1.3 10^3/uL (0.0-0.8); RED BLOOD COUNT 3.11 10^6/uL (4.30-6.10); WHITE BLOOD COUNT 7.1 10^3/uL (4.0-10.0)
[2023-01-01 12:15] LABS: PLATELET COUNT, AUTOMATED 93 10^3/uL (150-450)
[2023-01-01 12:26] LABS: ERYTHROCYTE SEDIMENTATION RATE 12 mm/hr (0-20)
[2023-01-01 12:38] LABS: ALBUMIN 3.4 G/DL (3.2-5.2); ALKALINE PHOSPHATASE 98 U/L (46-116); ALT/SGPT 22 U/L (7.0-40); AST/SGOT 23 U/L (<34); BILIRUBIN,TOTAL 0.8 MG/DL (0.3-1.2); BLOOD UREA NITROGEN 34 MG/DL (9-23); CALCIUM LEVEL 8.3 MG/DL (8.3-10.6); CARBON DIOXIDE LEVEL 25 MMOL/L (20-31); CHLORIDE LEVEL 107 MMOL/L (98-107); CREATININE FOR GFR 1.23 MG/DL (0.70-1.30); GLOMERULAR FILTRATION RATE > 60.0 (>42); GLUCOSE, FASTING 72 MG/DL (74-106); POTASSIUM SERUM 4.4 MMOL/L (3.5-5.1); SODIUM LEVEL 138 MMOL/L (136-145); TOTAL PROTEIN 6.4 G/DL (5.7-8.2)
[2023-01-01 12:39] LABS: C REACTIVE PROTEIN QUANTITATIV < 0.40 MG/DL (<1.0)
[2023-01-01 14:00] VITALS: BP 124/53
[2023-01-01 20:00] VITALS: BP 141/57
[2023-01-01] MEDS: ATORVASTATIN 20 MG TAB PO SCH (20:21)
[2023-01-01] MEDS: GABAPENTIN 300 MG CAP PO SCH (20:22)
[2023-01-02] MEDS: IPRATROPIUM 0.5MG/ALBUTEROL 2.5MG INH SOL UD 3ML (DUONEB) NEB SCH ×2 (00:36→07:15)
[2023-01-02 06:00] VITALS: BP 140/56
[2023-01-02] MEDS: cefTRIAXone SOD 1 GM in D5W MINI-BAG PLUS 50 ML IV SCH (07:50)
[2023-01-02 07:51] VITALS: BP 138/58
[2023-01-02] MEDS: NYSTATIN 100,000 UNITS/GM TOPICAL PWD 15GM TOP SCH (07:51)
[2023-01-02] MEDS: guaiFENesin ER 600 MG TAB PO SCH (07:51)
[2023-01-02] MEDS: CARVedilol 3.125 MG TAB PO SCH (07:51)
[2023-01-02] MEDS: LACTOBACILLUS ACIDOPHILUS CAP (BACID) PO SCH (07:51)
[2023-01-02] MEDS: ASPIRIN 81MG ENTERIC TABLET PO SCH (07:51)
[2023-01-02] MEDS: FERROUS SULFATE 325MG TAB PO SCH (07:51)
[2023-01-02] MEDS: DOXYCYCLINE HYCLATE 100MG TABLET PO SCH (07:51)
[2023-01-02] MEDS ORDERED: VANCOMYCIN HCL 1,000 MG, VIAL MATE ADAPTER 1 EACH in NS 250 ML IV SCH (08:00)
[2023-01-02 09:20] LABS: BASO % 0.5 % (0.0-1.0); EOS % 0.2 % (0.0-3.0); HEMATOCRIT 30.9 % (42.0-52.0); HEMOGLOBIN 9.6 g/dl (13.5-17.5); MEAN CORPUSCULAR HEMOGLOBIN 30.1 pg (27.0-33.0); MEAN CORPUSCULAR HGB CONC 31.1 g/dl (32.0-36.5); MEAN CORPUSCULAR VOLUME 96.9 fl (80.0-96.0); MONO # 1.1 10^3/uL (0.0-0.8); MONO % 19.4 % (2.0-8.0); NEUTROPHILS # 3.4 10^3/uL (1.5-8.5); NEUTROPHILS % 59.4 % (36.0-66.0); RED BLOOD COUNT 3.19 10^6/uL (4.30-6.10); WHITE BLOOD COUNT 5.7 10^3/uL (4.0-10.0)
[2023-01-02 09:25] LABS: PLATELET COUNT, AUTOMATED 80 10^3/uL (150-450)
[2023-01-02 09:41] LABS: BLOOD UREA NITROGEN 32 MG/DL (9-23); CALCIUM LEVEL 8.4 MG/DL (8.3-10.6); CARBON DIOXIDE LEVEL 21 MMOL/L (20-31); CHLORIDE LEVEL 106 MMOL/L (98-107); CREATININE FOR GFR 1.08 MG/DL (0.70-1.30); GLOMERULAR FILTRATION RATE > 60.0 (>42); GLUCOSE, FASTING 118 MG/DL (74-106); POTASSIUM SERUM 4.2 MMOL/L (3.5-5.1); SODIUM LEVEL 138 MMOL/L (136-145)
[2023-01-02] MEDS ORDERED: CEFD300C41 PO (10:00)
[2023-01-02] MEDS ORDERED: BACI1CAP PO (10:00)
[2023-01-02 15:09] LABS: BODY FLUID CULTURE Not indicated. (.); LEGIONELLA ANTIGEN URINE Negative (Negative); ORGANISM ID Not indicated. (.); SPECIMEN SOURCE Urine (.); URINE STREP PNEUMONIAE ANTIGEN Negative (Negative)
[2023-01-03] MEDS ORDERED: CEFDINIR 300 MG CAP (OMNICEF) PO SCH (09:00)
== END 2023-01-02 14:07 | disposition home or self-care (01) | DRG 178 ==
LOC: EDBD 16:54 → M ED 16:56 → M ED INP 22:40 → M MSPAV 23:18
PROVIDERS: ADMIT Family Medicine; ATTEND General Practice
DX: J15.6 Pneumonia due to other Gram-negative bacteria (principal); R04.2 Hemoptysis; I13.0 Hypertensive heart and chronic kidney disease with heart failure and stage 1 through stage 4 chronic kidney disease, or unspecified chronic kidney disease; J44.0 Chronic obstructive pulmonary disease with (acute) lower respiratory infection; I50.32 Chronic diastolic (congestive) heart failure; R78.81 Bacteremia; N18.9 Chronic kidney disease, unspecified; D64.9 Anemia, unspecified; E78.5 Hyperlipidemia, unspecified; I25.10 Atherosclerotic heart disease of native coronary artery without angina pectoris; K21.9 Gastro-esophageal reflux disease without esophagitis; D69.6 Thrombocytopenia, unspecified; J45.909 Unspecified asthma, uncomplicated; I27.20 Pulmonary hypertension, unspecified; M19.90 Unspecified osteoarthritis, unspecified site; I34.0 Nonrheumatic mitral (valve) insufficiency; G47.33 Obstructive sleep apnea (adult) (pediatric); Z79.82 Long term (current) use of aspirin; Z79.899 Other long term (current) drug therapy; M54.59 Other low back pain

== ENCOUNTER → 2023-01-08 | Outpatient (REF) | payer MEDICARE ==
[~2023-01-08] MED LIST changes: +BACI1CAP PO; +BACI28.417 TOP; -BACI28.43 TOP; +CEFU50TA PO; +FLUT1BLS8 INH; +PRED10TA2 PO
[2023-01-08 16:17] LABS: BASO # 0.1 10^3/uL (0.0-0.2); BASO % 0.3 % (0.0-1.0); EOS # 0.1 10^3/uL (0.0-0.5); EOS % 0.6 % (0.0-3.0); HEMATOCRIT 36.1 % (42.0-52.0); HEMOGLOBIN 10.9 g/dl (13.5-17.5); LYMPH # 1.6 10^3/uL (1.5-5.0); LYMPH % 8.9 % (24.0-44.0); MEAN CORPUSCULAR HEMOGLOBIN 29.5 pg (27.0-33.0); MEAN CORPUSCULAR HGB CONC 30.2 g/dl (32.0-36.5); MEAN CORPUSCULAR VOLUME 97.8 fl (80.0-96.0); MONO % 14.3 % (2.0-8.0); NEUTROPHILS # 13.2 10^3/uL (1.5-8.5); NEUTROPHILS % 72.3 % (36.0-66.0); PLATELET COUNT, AUTOMATED 116 10^3/uL (150-450); RED BLOOD COUNT 3.69 10^6/uL (4.30-6.10); WHITE BLOOD COUNT 18.2 10^3/uL (4.0-10.0)
[2023-01-08 16:51] LABS: PERCENT SATURATION 30.5 % (19.7-50.0)
[2023-01-08 17:56] LABS: MONO # 2.6 10^3/uL (0.0-0.8)
== END ==
LOC: M SFHCADAM 13:40
PROVIDERS: ATTEND Family Medicine
DX: D64.9 Anemia, unspecified (principal)

== ENCOUNTER → 2023-02-20 | Outpatient (CLI) | payer MEDICARE, MEDICAID | LOC: M RAD 14:50 | PROVIDERS: ATTEND Nurse Practitioner Family | DX: J45.30 Mild persistent asthma, uncomplicated (principal) ==

== ENCOUNTER 2023-02-27 16:10 | Inpatient (IN) | payer MEDICARE, MEDICAID ==
[~2023-02-27] VITALS: Ht 172.7 cm; Wt 117.6 kg
[2023-02-27 17:18] LABS: BASO % 0.3 % (0.0-1.0); EOS # 0.1 10^3/uL (0.0-0.5); EOS % 0.9 % (0.0-3.0); HEMATOCRIT 29.5 % (42.0-52.0); HEMOGLOBIN 9.1 g/dl (13.5-17.5); LYMPH # 1.2 10^3/uL (1.5-5.0); LYMPH % 17.7 % (24.0-44.0); MEAN CORPUSCULAR HEMOGLOBIN 30.4 pg (27.0-33.0); MEAN CORPUSCULAR HGB CONC 30.8 g/dl (32.0-36.5); MEAN CORPUSCULAR VOLUME 98.7 fl (80.0-96.0); MONO # 1.3 10^3/uL (0.0-0.8); MONO % 19.6 % (2.0-8.0); NEUTROPHILS # 3.9 10^3/uL (1.5-8.5); NEUTROPHILS % 60.4 % (36.0-66.0); RED BLOOD COUNT 2.99 10^6/uL (4.30-6.10); WHITE BLOOD COUNT 6.5 10^3/uL (4.0-10.0)
[2023-02-27 17:20] LABS: PLATELET COUNT, AUTOMATED 99 10^3/uL (150-450)
[2023-02-27 17:27] LABS: ERYTHROCYTE SEDIMENTATION RATE 26 mm/hr (0-20)
[2023-02-27 17:28] LABS: INR 1.06; PARTIAL THROMBOPLASTIN TIME 30.3 SECONDS (24.8-34.2)
[2023-02-27] MEDS ORDERED: BOOSTRIX VACCINE (TETANUS/DIPHTH/ACEL. PERTUSSIS) 0.5ML SYR IM ONE (17:45)
[2023-02-27] MEDS ORDERED: ceFAZolin SOD 2 GM in IV 1 EA IV ONE (17:45)
[2023-02-27 17:47] LABS: C REACTIVE PROTEIN QUANTITATIV 0.7 MG/DL (<1.0)
[2023-02-27 17:49] LABS: ALBUMIN 3.9 G/DL (3.2-5.2); BILIRUBIN,DIRECT 0.6 MG/DL (<0.4); BILIRUBIN,TOTAL 1.5 MG/DL (0.3-1.2); CALCIUM LEVEL 9.2 MG/DL (8.3-10.6); CREATININE FOR GFR 1.56 MG/DL (0.70-1.30); GLOMERULAR FILTRATION RATE 46.1 (>42); POTASSIUM SERUM 4.6 MMOL/L (3.5-5.1)
[2023-02-27] MEDS ORDERED: NS 1,000 ML IV ONE (18:35)
[2023-02-27 18:59] LABS: RSV AMPLIFICATION NEGATIVE (NEGATIVE)
[2023-02-27] MEDS ORDERED: NS 1,000 ML IV SCH (20:35)
[2023-02-27] MEDS ORDERED: HEPARIN SOD (PORCINE) 5000UNITS/ML 1ML VIAL/SYRINGE SC SCH (20:35)
[2023-02-27] MEDS ORDERED: ACETAMINOPHEN TAB 650MG DOSE (2X325MG) PO PRN (20:35)
[2023-02-27] MEDS ORDERED: ATORVASTATIN 20 MG TAB PO SCH (21:00)
[2023-02-27] MEDS ORDERED: GABAPENTIN 300 MG CAP PO SCH (21:00)
[2023-02-27] MEDS ORDERED: CARVedilol 3.125 MG TAB PO SCH (21:00)
[2023-02-27] MEDS ORDERED: cefTRIAXone SOD 2 GM in D5W MINI-BAG PLUS 50 ML IV SCH (22:00)
[2023-02-27] MEDS: guaiFENesin ER 600 MG TAB PO SCH (22:01)
[2023-02-27] MEDS: DOXYCYCLINE HYCLATE 100MG TABLET PO SCH (22:01)
[2023-02-27] MEDS ORDERED: HOME MED LIST COMPLETE! XX SCH (22:05)
[2023-02-27] MEDS ORDERED: ALBUTEROL 90 MCG/ACT 8GM HFA INHALER INH PRN (22:20)
[2023-02-27] MEDS: IPRATROPIUM 0.5MG/ALBUTEROL 2.5MG INH SOL UD 3ML (DUONEB) NEB PRN (22:31)
[2023-02-27] MEDS ORDERED: MORPHINE 2 MG/ML 1ML VIAL IV ONE ×2 (23:25→23:45)
[2023-02-27] MEDS ORDERED: ASPIRIN 81MG CHEW TABLET PO ONE (23:25)
[2023-02-27] MEDS ORDERED: HEPARIN SOD (PORCINE) 5000UNITS/ML 1ML VIAL/SYRINGE IV ONE (23:30)
[2023-02-27] MEDS ORDERED: HEPARIN DRIP 25,000 UNITS in IV 1 EA IV SCH (23:30)
[2023-02-27] MEDS ORDERED: HEPARIN SOD (PORCINE) 5000UNITS/ML 1ML VIAL/SYRINGE IV PRN (23:30)
[2023-02-27] MEDS: NITROGLYCERIN 0.4MG SUBL TABLET SL PRN (23:38)
[2023-02-27] MEDS ORDERED: METOPROLOL 5 MG/5 ML VIAL IV STA (23:45)
[2023-02-27] MEDS ORDERED: MAALOX 30 ML SUSP *UDC PO ONE (23:50)
[2023-02-28] VITALS (30 sets, daily range): BP systolic 130–170; BP diastolic 58–84; PULSE 64–69; TEMP 96.6–97.8; O2SAT 88–97
[2023-02-28] LABS: APPEARANCE, URINE CLEAR (CLEAR); BACTERIA, URINE AUTO NEGATIVE (NEGATIVE); BILIRUBIN, URINE AUTO NEGATIVE (NEGATIVE); BLOOD, URINE BLOOD 1+ (NEGATIVE); COLOR, URINE YELLOW (YELLOW); GLUCOSE, URINE (UA) AUTO NEGATIVE (NEGATIVE); KETONE, URINE AUTO NEGATIVE (NEGATIVE); LEUKOCYTE ESTERASE, URINE AUTO NEGATIVE (NEGATIVE); MUCUS, URINE SMALL (NEGATIVE); NITRITE, URINE AUTO NEGATIVE (NEGATIVE); PROTEIN, URINE AUTO NEGATIVE (NEGATIVE); RBC, URINE AUTO 3 /HPF (0-3); SPECIFIC GRAVITY URINE AUTO 1.009 (1.002-1.035); SQUAMOUS EPITHELIAL CELL UR AU 0 /HPF (0-6); UROBILINOGEN, URINE AUTO 0.2 mg/dL (0.0-2.0); WBC, URINE AUTO 0 /HPF (0-3)
[2023-02-28 00:14] LABS: TOTAL PROTEIN,RANDOM URINE 20.6 MG/DL (0.0-14.0)
[2023-02-28 00:20] LABS: CK-MB VALUE MASS 6.2 NG/ML (<3.6); CREATININE,RANDOM URINE 49.8 MG/DL
[2023-02-28 00:23] LABS: MB/CK RELATIVE INDEX 2.92 (< OR =4)
[2023-02-28] MEDS ORDERED: ceFAZolin SOD 2 GM in IV 1 EA IV SCH (02:00)
[2023-02-28] MEDS: IPRATROPIUM 0.5MG/ALBUTEROL 2.5MG INH SOL UD 3ML (DUONEB) NEB PRN (02:46)
[2023-02-28 04:08] LABS: CK-MB VALUE MASS 9.2 NG/ML (<3.6)
[2023-02-28 04:13] LABS: MB/CK RELATIVE INDEX 4.79 (< OR =4)
[2023-02-28] MEDS: METOPROLOL TART 50 MG TAB PO SCH ×2 (05:32→11:49)
[2023-02-28] MEDS ORDERED: methylPREDNISolone 125MG 2ML VIAL IV ONE (05:45)
[2023-02-28 06:34] LABS: HEMATOCRIT 29.9 % (42.0-52.0); HEMOGLOBIN 9.1 g/dl (13.5-17.5); MEAN CORPUSCULAR HEMOGLOBIN 30.6 pg (27.0-33.0); MEAN CORPUSCULAR HGB CONC 30.4 g/dl (32.0-36.5); MEAN CORPUSCULAR VOLUME 100.7 fl (80.0-96.0); RED BLOOD COUNT 2.97 10^6/uL (4.30-6.10); WHITE BLOOD COUNT 10.5 10^3/uL (4.0-10.0)
[2023-02-28 06:46] LABS: CALCIUM LEVEL 7.8 MG/DL (8.3-10.6); CREATININE FOR GFR 1.27 MG/DL (0.70-1.30); GLOMERULAR FILTRATION RATE 58.4 (>42); MAGNESIUM LEVEL 2.2 MG/DL (1.8-2.4); POTASSIUM SERUM 4.4 MMOL/L (3.5-5.1)
[2023-02-28 06:53] LABS: PROCALCITONIN 0.1 ng/ml
[2023-02-28 06:54] LABS: CK-MB VALUE MASS 21.2 NG/ML (<3.6)
[2023-02-28 06:55] LABS: PLATELET COUNT, AUTOMATED 86 10^3/uL (150-450)
[2023-02-28 07:24] LABS: MB/CK RELATIVE INDEX 9.76 (< OR =4)
[2023-02-28] MEDS: IPRATROPIUM 0.5MG/ALBUTEROL 2.5MG INH SOL UD 3ML (DUONEB) NEB SCH ×3 (07:48→15:09)
[2023-02-28] MEDS ORDERED: TIOTROPIUM INHALER/CAPSULE (SPIRIVA) INH SCH (08:00)
[2023-02-28] MEDS ORDERED: ADVAIR HFA 115/21MCG INHALER INH SCH (08:00)
[2023-02-28] MEDS ORDERED: FERROUS SULFATE 325MG TAB PO SCH (09:00)
[2023-02-28] MEDS ORDERED: ASPIRIN 81MG ENTERIC TABLET PO SCH (09:00)
[2023-02-28] MEDS ORDERED: CLOPIDOGREL 75 MG TAB PO SCH (09:00)
[2023-02-28] MEDS ORDERED: ENOXAPARIN 120MG/0.8ML SYRINGE SC SCH (09:00)
[2023-02-28] MEDS: DOXYCYCLINE HYCLATE 100MG TABLET PO SCH (09:14)
[2023-02-28] MEDS: guaiFENesin ER 600 MG TAB PO SCH (09:14)
[2023-02-28] MEDS ORDERED: FUROSEMIDE 20MG/2ML VIAL IV ONE (10:00)
[2023-02-28 12:52] LABS: HEMOGLOBIN 9.2 g/dl (13.5-17.5)
[2023-02-28] MEDS: NITROGLYCERIN 0.4MG SUBL TABLET SL PRN (15:38)
[2023-02-28] MEDS ORDERED: methylPREDNISolone 40MG 1ML VIAL IV SCH (21:00)
[2023-03-01 16:10] LABS: MYCOPLASMA PNEUMONIAE IgG 926 U/mL (0-99); MYCOPLASMA PNEUMONIAE IgM <770 U/mL (0-769)
== END 2023-02-28 17:58 | disposition short-term general hospital (02) | DRG 602 ==
LOC: M ED 16:10 → M ED INP 16:11 → ENRESERV 23:38 → CANRESERV 23:38 → ENRESERV 02-28 01:05 → M PCU 02-28 02:12 → OBSVTOIN 02-28 08:48
PROVIDERS: ADMIT Internal Medicine; ATTEND Internal Medicine
DX: L03.115 Cellulitis of right lower limb (principal); J18.9 Pneumonia, unspecified organism; I21.A1 Myocardial infarction type 2; N17.9 Acute kidney failure, unspecified; J44.1 Chronic obstructive pulmonary disease with (acute) exacerbation; J90 Pleural effusion, not elsewhere classified; J44.0 Chronic obstructive pulmonary disease with (acute) lower respiratory infection; I13.0 Hypertensive heart and chronic kidney disease with heart failure and stage 1 through stage 4 chronic kidney disease, or unspecified chronic kidney disease; D50.9 Iron deficiency anemia, unspecified; N18.9 Chronic kidney disease, unspecified; I25.119 Atherosclerotic heart disease of native coronary artery with unspecified angina pectoris; K21.9 Gastro-esophageal reflux disease without esophagitis; E78.5 Hyperlipidemia, unspecified; I25.10 Atherosclerotic heart disease of native coronary artery without angina pectoris; F17.200 Nicotine dependence, unspecified, uncomplicated; Z95.2 Presence of prosthetic heart valve

== ENCOUNTER → 2023-03-12 | Outpatient (CLI) | payer MEDICARE ==
[2023-03-12 18:01] LABS: HEMOGLOBIN 8.2 g/dl (13.5-17.5); MEAN CORPUSCULAR HEMOGLOBIN 29.9 pg (27.0-33.0); MEAN CORPUSCULAR HGB CONC 29.3 g/dl (32.0-36.5); MEAN CORPUSCULAR VOLUME 102.2 fl (80.0-96.0); PLATELET COUNT, AUTOMATED 107 10^3/uL (150-450); RED BLOOD COUNT 2.74 10^6/uL (4.30-6.10); WHITE BLOOD COUNT 16.4 10^3/uL (4.0-10.0)
[2023-03-12 18:24] LABS: ATYPICAL LYMPH 5 % (0-5); LYMPHOCYTES 3 % (16-44); METAMYELOCYTES 1 % (0-0); MONOCYTES 8 % (0-5); MYELOCYTES 1 % (0-0); NEUTROPHILS 80 % (28-66); PLATELET ESTIMATE DECREASED (NORMAL); POLYCHROMASIA 1+
[2023-03-12 18:25] LABS: ANISOCYTOSIS 1+; HYPOCHROMASIA 1+
== END ==
LOC: M RAD 16:31
PROVIDERS: ATTEND Family Medicine
DX: R91.8 Other nonspecific abnormal finding of lung field (principal); R04.2 Hemoptysis

== ENCOUNTER → 2023-03-12 | Outpatient (REF) | payer MEDICARE | LOC: M SFHCADAM 15:00 | PROVIDERS: ATTEND Family Medicine | DX: R04.2 Hemoptysis (principal) ==

== ENCOUNTER 2023-03-14 14:50 | Emergency (ER) | payer MEDICARE ==
[~2023-03-14] VITALS: Ht 172.7 cm; Wt 109.1 kg
[2023-03-14] MEDS ORDERED: ASPIRIN 81MG CHEW TABLET PO ONE (15:25)
[2023-03-14] MEDS ORDERED: cefTRIAXone SOD 2 GM in D5W MINI-BAG PLUS 50 ML IV ONE (15:50)
[2023-03-14] MEDS: NITROGLYCERIN 0.4MG SUBL TABLET SL PRN ×3 (16:10→22:58)
[2023-03-14 16:11] LABS: HEMATOCRIT 26.3 % (42.0-52.0); HEMOGLOBIN 7.7 g/dl (13.5-17.5); MEAN CORPUSCULAR HEMOGLOBIN 29.7 pg (27.0-33.0); MEAN CORPUSCULAR HGB CONC 29.3 g/dl (32.0-36.5); MEAN CORPUSCULAR VOLUME 101.5 fl (80.0-96.0); RED BLOOD COUNT 2.59 10^6/uL (4.30-6.10); WHITE BLOOD COUNT 13.4 10^3/uL (4.0-10.0)
[2023-03-14 16:22] LABS: PLATELET COUNT, AUTOMATED 79 10^3/uL (150-450)
[2023-03-14 16:38] LABS: MB/CK RELATIVE INDEX 5.35 (< OR =4)
[2023-03-14] MEDS ORDERED: AZITHROMYCIN 250MG TABLET PO ONE (16:50)
[2023-03-14 16:52] LABS: ATYPICAL LYMPH 2 % (0-5); HYPOCHROMASIA 2+; LYMPHOCYTES 2 % (16-44); MONOCYTES 9 % (0-5); NEUTROPHILS 86 % (28-66)
[2023-03-14 16:53] LABS: ANISOCYTOSIS 4+
[2023-03-14 16:55] LABS: ALBUMIN 3.4 G/DL (3.2-5.2); BILIRUBIN,DIRECT 0.8 MG/DL (<0.4); BILIRUBIN,TOTAL 1.9 MG/DL (0.3-1.2); CALCIUM LEVEL 8.4 MG/DL (8.3-10.6); CREATININE FOR GFR 1.68 MG/DL (0.70-1.30); GLOMERULAR FILTRATION RATE 42.3 (>42); PLATELET ESTIMATE DECREASED (NORMAL); POTASSIUM SERUM 4.8 MMOL/L (3.5-5.1); TOTAL PROTEIN 6.3 G/DL (5.7-8.2)
[2023-03-14] MEDS ORDERED: LINEZOLID 600MG TABLET (ZYVOX) PO ONE (17:05)
[2023-03-14 17:23] LABS: RSV AMPLIFICATION NEGATIVE (NEGATIVE)
[2023-03-14 17:51] LABS: CK-MB VALUE MASS 2.6 NG/ML (<3.6)
[2023-03-14 17:53] LABS: MB/CK RELATIVE INDEX 4.81 (< OR =4)
[2023-03-14] MEDS ORDERED: ISOVUE-370 76% 100ML VIAL As Ordered ONE (17:55)
[2023-03-14 18:34] VITALS: BP 119/56
[2023-03-14] MEDS ORDERED: MORPHINE 2 MG/ML 1ML VIAL IV ONE (18:35)
[2023-03-14 19:59] LABS: CK-MB VALUE MASS 2.2 NG/ML (<3.6); MB/CK RELATIVE INDEX 3.01 (< OR =4)
[2023-03-15] MEDS: NITROGLYCERIN 0.4MG SUBL TABLET SL PRN ×2 (05:16→06:49)
[2023-03-15 10:14] VITALS: BP 109/55; TEMP 96.7; O2SAT 99
== END 2023-03-15 10:20 | disposition short-term general hospital (02) ==
LOC: M ED 14:50
DX: I21.4 Non-ST elevation (NSTEMI) myocardial infarction (principal); J18.9 Pneumonia, unspecified organism; I49.1 Atrial premature depolarization; I25.2 Old myocardial infarction; I10 Essential (primary) hypertension; J45.909 Unspecified asthma, uncomplicated; J44.9 Chronic obstructive pulmonary disease, unspecified; Z79.02 Long term (current) use of antithrombotics/antiplatelets; Z79.52 Long term (current) use of systemic steroids; Z79.810 Long term (current) use of selective estrogen receptor modulators (SERMs); Z79.899 Other long term (current) drug therapy
CPT/HCPCS: 71045; 71275; 80048; 80076; 82550; 82553; 83605; 83880; 84484; 85025; 85049; 85055; 87040; 87631; 93005; 93041; 94760; 96374; 96375; 99285; J0696; Q9967